=== PATIENT | male | born 1955 | race Caucasian/White ===

== ENCOUNTER 2021-06-21 09:17 | Observation (INO) ==
--- NOTE | 2021-06-19 10:00 | Anesthesiology Consultation ---
Date of Service June 19, 2021 Assessment & Plan (1) Encounter for pre-operative examination: - Pt reports echocardiogram within past year. Will attempt to obtain record. - COVID screening: Per assessment director on 06/19/2021: Travel screen negative, no known COVID-19 positive contacts or current COVID-19 related symptoms in past 2 weeks. Patient vaccinated. Surgeon arranging preop COVID testing, scheduled 06/19/21 [place]. Awaiting results. Chart Review Chart Review: Acceptable Risk for Surgery (pending echocardiogram report) and Patient NOT seen in Pre Admission Testing History Surgery Operation Date: 06/21/21 07:00 Proposed Procedures p Left Laparoscopic Recurrent Inguinal Hernia Repair, possible Open - David Scott MD, FACS Height/Weight Height: 5 ft 10 in Weight: 88.451 kg Allergies Allergy/AdvReac Type Severity Reaction Status Date / Time Penicillins Allergy Unknown UNSURE OF Verified 06/19/21 09:16 REACTION Medications Home Medications Medication Instructions Recorded Confirmed Last Taken aspirin 81 mg tablet,delayed 81 mg PO HS 02/09/21 06/19/21 04/25/21 release (Adult Aspirin Regimen) atorvastatin 10 mg tablet 10 mg PO HS 02/09/21 06/19/21 04/25/21 finasteride 5 mg tablet 5 mg PO HS 02/09/21 06/19/21 04/25/21 losartan 50 mg tablet 50 mg PO HS 02/09/21 06/19/21 04/25/21 tstutoxn-cos-wikhj acid 300 1 tab PO QAM 04/23/21 06/19/21 04/26/21 mcg-lycopene 600 mcg-lutein 300 mcg tablet (Spectravite Men 50 Plus) glucosamine sulf dipot 1 cap PO BID 06/19/21 06/19/21 Unknown chlr,msm,chond 550 mg-C 30 mg-caitlin 1 mg capsule (Glucosamine Chondroitin) omega-3 fatty acids 1,000 mg PO DAILY 06/19/21 06/19/21 Unknown Past Medical History Medical History BPH (benign prostatic hyperplasia) Hearing deficit Hyperlipemia Hypertension Osteoarthritis Past Family History Family History Father Hypertension Other Hearing loss No family history of adverse response to anesthesia No family history of bleeding disorder Past Surgical History Surgical History H/O hand surgery Right hand cyst H/O left inguinal hernia repair H/O right knee surgery H/O shoulder surgery RT H/O tooth extraction History of esophagogastroduodenoscopy (EGD) Hx of cataract surgery RT/LEFT Hx of colonoscopy with polypectomy Social History Smoking Status: Former smoker tobacco type: cigarettes Do You Dip or Chew Tobacco: No Smoking End Date: 2000 Hx Alcohol Use: Yes Alcohol type: beer and hard liquor alcohol intake frequency: a few times a week Hx Substance Use: Yes substance use type: marijuana Last Used Substance Other:: 4 DAYS AG (LAST USED) Lab Results Anesthesia Preop Results Results Anesthesia Widget: WBC 3.98 K/uL (4.8-10.8) L 05/23/21 Hgb 16.7 g/dL (14.0-18.0) 05/23/21 Hct 48.8 % (42-52) 05/23/21 Plt 141 K/uL (130-400) 05/23/21 Na 141 mmol/L (136-145) 05/23/21 K 4.3 mmol/L (3.5-5.1) 05/23/21 Cl 108 mmol/L (98-107) H 05/23/21 CO2 29 mmol/L (21-32) 05/23/21 BUN 16 mg/dl (7-18) 05/23/21 Creat 1.06 mg/dl (0.6-1.4) 05/23/21 Glucose Level 109 mg/dl (70-99) H 05/23/21 Testing Electrocardiogram Date: 05/23/21 Normal sinus rhythm, rate 61 bpm. Chest X-Ray Date: 05/23/21 FINDINGS: PA and lateral chest radiographs are obtained. No prior studies are available for comparison at the time of dictation. The cardiomediastinal silhouette is unremarkable noting atherosclerotic calcification of the thoracic aorta. The lungs appear hyperinflated and hyperlucent with flattening the diaphragm and increased retrosternal clear space suggesting obstructive physiology. No airspace consolidation or pleural effusion is identified. There is no pneumothorax. The bony thorax appears intact. IMPRESSION: 1. No active disease in the chest. 2. Findings suggest obstructive physiology.
[~2021-06-21 09:17] MED LIST: LR 15ML/HR IV SCH
[2021-06-21] MEDS ORDERED: MIDAZOLAM HCL 1 MG/ML 2ML VIAL ONE (09:28)
[2021-06-21] MEDS ORDERED: fentaNYL citrate 100 MCG/2 ML VIAL ONE (09:28)
[2021-06-21] MEDS ORDERED: ACETAMINOPHEN 1000 MG/100 ML IV IV ONE (09:42)
[2021-06-21] MEDS ORDERED: ATROPINE SULFATE 0.1 MG/ML 10ML SYR IV PRN (09:56)
[2021-06-21] MEDS ORDERED: ePHEDrine sulfate 50 MG/ML AMP IV PRN (09:56)
[2021-06-21] MEDS ORDERED: ONDANSETRON INJ 2 MG/ML 2 ML VIAL IV PRN ×3 (09:56→14:15)
[2021-06-21] MEDS ORDERED: fentaNYL citrate 100 MCG/2 ML VIAL IV PRN (09:56)
[2021-06-21] MEDS ORDERED: DEXAMETHASONE SOD INJ 4 MG/ML VIAL ONE (10:05)
[2021-06-21] MEDS ORDERED: LIDOCAINE 2% 2 ML VIAL/AMP(20MG/ML) INFIL ONE (10:05)
[2021-06-21] MEDS ORDERED: PROPOFOL IV EMULSION 10 MG/ML 20 ML VIAL IV ONE (10:05)
[2021-06-21] MEDS ORDERED: ROCURONIUM BROMIDE 10 MG/ML 5 ML VIAL IV ONE (10:05)
[2021-06-21] MEDS ORDERED: ONDANSETRON INJ 2 MG/ML 2 ML VIAL ONE (10:05)
--- NOTE | 2021-06-21 10:13 | History & Physical Bridge Note ---
Date of Service June 21, 2021 History & Physical Bridge Note I have examined the patient, reviewed the History & Physical and in the interval since the performance of the History & Physical I have noted the following changes of clinical significance: no changes noted pt marked all question answered
[2021-06-21] MEDS ORDERED: BUPIVACAINE 0.5 % 5 MG/1 ML MPF 30ML VIAL ONE (10:15)
[2021-06-21] MEDS ORDERED: NEOSTIGMINE METHYLSULFATE 1 MG/ML 10ML VIAL ONE (10:55)
[2021-06-21] MEDS ORDERED: GLYCOPYRROLATE 0.2 MG/ML VIAL ONE (10:55)
[2021-06-21] MEDS ORDERED: ceFAZolin 2000MG 2,000 MG/15 ML SYR IV ONE ×2 (11:02→11:13)
[2021-06-21] MEDS ORDERED: SURGICEL ABSORB HEMOSTAT 2IN X 14IN TOP ONE (11:56)
[2021-06-21] MEDS ORDERED: MoRPHine SULFATE 4 MG/ML 1 ML CARP\\VIAL IV PRN ×2 (12:09→14:15)
[2021-06-21] MEDS ORDERED: MoRPHine SULFATE 2 MG/ML CARP IV PRN ×2 (12:09→14:15)
[2021-06-21] MEDS ORDERED: oxyCODONE/ACETAMINOPHEN 5mg/325mg TAB PO PRN ×4 (12:09→14:15)
[2021-06-21] MEDS ORDERED: SODIUM CHLORIDE 0.9% 1000ML 1,000 ML IV SCH (12:15)
--- NOTE | 2021-06-21 12:29 | Post Operative Brief Note ---
PG Immediate Post Op with CF Date of Surgery June 21, 2021 Pre & Post Diagnosis Operation Date: 06/21/21 11:05 Pre-Op Diagnosis: Recurrent Left Inguinal Hernia Post-Op Diagnosis: Recurrent Left Inguinal Hernia I identified the patient and participated in the time-out.: Yes Procedure Operation Date: 06/21/21 11:05 Actual Procedures p Left Laparoscopic Recurrent Indirect Inguinal Hernia Repair with Marlex Mesh(Left) - David Scott MD, FACS Surgeon David Scott MD, FACS Mutuel Department Manager getachew segura Estimated Blood Loss 100 Findings Consistent with Post-Op Diagnosis indirect rec hernia Specimens Specimen Description: #1 urine culture Drains Orourke Catheter
--- NOTE | 2021-06-21 12:41 | Operative Report ---
Post Operative Report Pre & Post Diagnosis Operation Date: 06/21/21 11:05 Pre-Op Diagnosis: Recurrent Left Inguinal Hernia Post-Op Diagnosis: Recurrent Left Inguinal Hernia I identified the patient and participated in the time-out.: Yes Procedure Operation Date: 06/21/21 11:05 Actual Procedures p Left Laparoscopic Recurrent Indirect Inguinal Hernia Repair with Marlex Mesh(Left) - David Scott MD, FACS Patient was brought into the operating theater general endotracheal anesthesia Orourke catheter placed lower abdomen was prepped byline scrub solution and properly draped timeout was had systemic antibiotics on board patient had been identified made a small incision supraumbilically sufficient enough to accommodate a Veress needle followed by CO2 followed by 5 mm trocar point retrospect had no injuries identified this point patient was placed in the Trendelenburg position we will do identify the left inguinal area large defect was appreciated was an indirect hernia we can see the the defect itself was approximately 3 cm or so where a wheeze appreciated the cord structures and it was going down medially at this point we placed a 5 mm trocar at the level of the umbilical area on the left another 5 to the right we then incised the peritoneum above the defect and took it all the way circumferentially down towards the triangle of doom and medially all the way to the medial umbilical ligament we bluntly dissected out to get to the muscular fascial planes and we delivered a significant amount of preperitoneal fatty tissue that had gone down into the canal the cord structures were strictly adherent and we had difficult time freeing it up from the hernial sac. I did not identify any mesh the patient states that he had a mesh closure done in the hernia approximately 7 years ago once we are able to delineate the muscular fascial planes we were able to easily appreciate the inferior epigastric vessels we went all the way down to Humberto's ligament symphysis pubis was all exposed but inferior to the triangle of doom and we were able to have significant of preperitoneal fat into the hernial sac and this was a generalized ooze. We used multiple application of the clips to it then to free up this area and control hemostasis pay some Surgicel in the area similarly an Endo loop. By the time we were down it seems like the bleeding was controlled it was a generalized oozing in the suspect the patient was related to the aspirin that he was taken the defect itself we had mobilized the cord structures and I elected to place a Marlex mesh that we brought up on the field and cut it in 2 limbs it appeared to go better by placing an underneath the cord structures rather than on top of it which we did at 2 limbs were then brought around at closed the neck at that around the cord structures using clips. We did use metal tackers and observable tackers to suture and stabilize the mesh against the symphysis pubis up a viable on the conjoined tendon staying away from the inferior epigastric vessels circumferentially we tacked the mesh but we were away from the triangle of doom. We then again checked for hemostasis which was constant ooze into the preperitoneal area from the large contents of the hernial sac but 1 we have not appear satisfactory we then closed the peritoneum over the mesh using clips. Completely exteriorizing the mesh from the intra-abdominal contents. Individual trocar sites were checked hemostasis and the trochars removed under direct visualization no bleeding was appreciated except some oozing at the skin edge and also we closed the opening and umbilical area using interrupted 0 Vicryl suture x2. 4 Monocryl for skin edges dressing was applied the procedure was tolerated well by the patient estimate blood loss approximately 100 cc mostly a generalized ooze that was constant. Addendum Elana Bueno was present at the procedure and helped the retraction exposure and wound closure Spoke with his Kasia at [phone] and discussed the operative findings and that that we were going to keep the patient observation overnight because of the generalized oozing that he had Surgeon David Scott MD, FACS Nurse Practitioner Manager getachew segura Estimated Blood Loss 100 Findings Consistent with Post-Op Diagnosis Large indirect hernia Specimens none Description of Procedure merda I attest to the content of the Intraoperative Record and any orders documented therein. Any exceptions are noted below.
--- NOTE | 2021-06-21 13:20 | Anesthesiology Progress Note ---
Date of Service June 21, 2021 Anesthesia Post Procedure Vital Signs Vital Signs: Temp Pulse Pulse Resp BP Pulse Ox 06/21/21 13:10 74 16 102/59 L 95 06/21/21 13:00 79 18 114/68 99 06/21/21 12:50 65 14 118/66 100 06/21/21 12:43 97.2 F L 87 20 131/74 97 06/21/21 10:04 97.9 F 66 18 135/87 97 Pain Intensity Abdomen: Pain Intensity: 2 Transfer of Care Handoff Completed per policy Notes Mental Status: alert / awake / arousable and participated in evaluation Patient Amnestic to Procedure: Yes Nausea / Vomiting: adequately controlled Pain: adequately controlled Airway Patency, RR, SpO2: stable & adequate BP & HR: stable & adequate Hydration State: stable & adequate Anesthetic Complications: no major complications apparent and Pt Satisfied with anesthetic care
[2021-06-21] MEDS ORDERED: LACTATED RINGER'S 1,000 ML IV SCH (14:15)
[2021-06-21] MEDS ORDERED: ATORVASTATIN 10 MG TAB PO SCH (21:00)
[2021-06-21] MEDS ORDERED: FINASTERIDE 5 MG TAB PO SCH (21:00)
[2021-06-21] MEDS ORDERED: ACETAMINOPHEN 325 MG TAB PO PRN (22:19)
[2021-06-22 08:27] LABS: Basophils # (auto) 0.02 K/uL (0-0.2); Basophils % (auto) 0.2 %; Eosinophils # (auto) 0.01 K/uL (0-0.5); Eosinophils % (auto) 0.1 %; Hematocrit (blood only) 37.5 % (42-52); Immature Granulocytes # (auto) 0.02 K/uL (0.00-0.02); Immature Granulocytes % (auto) 0.2 %; Lymphocytes # (auto) 1.48 K/uL (1.2-3.4); Mean Corpuscular Hgb Conc 34.7 g/dL (32-36); Mean Corpuscular Volume 95.2 fL (80-100); Mean Platelet Volume 8.6 fL (7.4-10.4); Monocytes # (auto) 1.04 K/uL (0.11-0.59); Monocytes % (auto) 8.4 %; Neutrophils % (auto) 79.1 %; Platelet Count 177 K/uL (130-400); RDW Coefficient of Variation 12.2 % (11.5-14.5); RDW Standard Deviation 42.5 fL (36.4-46.3); Red Blood Count 3.94 M/uL (4.7-6.1); White Blood Count 12.37 K/uL (4.8-10.8)
[2021-06-22 08:45] LABS: BUN Creatinine Ratio 16.2 (10-20); Calcium 8.5 mg/dl (8.5-10.1); Creatinine Clr Calc Pharmacy 76.5 ml/min; Est GFR (African American) 84.7 ml/min; Est GFR (Non-African American) 73.1 ml/min; Potassium 4.1 mmol/L (3.5-5.1)
--- NOTE | 2021-06-22 08:58 | Surgery Progress Note ---
Date of Service June 22, 2021 Assessment & Plan (1) Left inguinal hernia: Plan: The intraoperative findings were discussed with the patient including the excessive bleeding that we encountered to repair this laparoscopic recurrent left inguinal hernia This morning we will await the hemoglobin stable and most likely will be since 6 vitals have been good and he is comfortable and the patient can be discharged instructions were given regarding wound care activities and diet and follow-up care All questions were answered Excessive bruising that we encountered in the preperitoneal area likely to do with a large hernia and also the patient is on chondroitin and aspirin which may have contributed to generalized oozing Admission and Anticipated Discharge Date Admission Date: June 21, 2021 Subjective The patient overall had a good night minimal discomfort postoperative been able to eat well last evening voiding fine Physical Exam Physical Exam: Alert coherent no distress The abdomen is completely benign Does have some scrotal swelling as expected and some bruising developing into the groin area Results & Data ([facility]) Vital Signs (Past 12 Hours) Vital Signs Temp Pulse Resp BP Pulse Ox 06/22/21 07:25 36.5 C 80 17 118/72 94 06/22/21 02:59 36.6 C 85 18 145/72 H 95 06/21/21 22:07 36.7 C 99 H 17 145/90 H 94 PG Care Time/CCT Total # of Minutes Spent Total Time Spent with Patient: Total time spent is greater than 50% in coordination of care (as documented) at patient's floor/unit and/or counseling patient: Coding Level of Care Code None Diagnoses Left inguinal hernia K40.90
--- NOTE | 2021-06-22 09:57 | Discharge Summary ---
Date of Service June 22, 2021 Principal Diagnosis Recurrent left inguinal hernia Discharge Exam Constitutional WD/WN, vitals as above Gastrointestinal (Abdomen) Inspection/Auscultation: + abdominal surgical incision (clean, dry) Percussion/Palpation: abdomen soft Discharge Data Allergies Allergy/AdvReac Type Severity Reaction Status Date / Time Penicillins Allergy Unknown UNSURE OF Verified 06/21/21 09:57 REACTION Procedures Performed Operation Date: 06/21/21 11:05 Actual Procedures p Left Laparoscopic Recurrent Indirect Inguinal Hernia Repair with Marlex Mesh(Left) - David Scott MD, FACS Hospital Course (1) Left inguinal hernia: 66 y/o male with recurrent left inguinal hernia was taken to the operating room for laparoscopic repair. He was transferred to the surgical floor for overnight observation. In the morning he was able to tolerate diet and oral analgesics. He had a slight drop in Hgb from 16 to 13 but was otherwise doing well and was stable for discharge home. Total Time Total Time Spent Total Time Spent (In Minutes): 15 Discharge Plan Discharge Items Patient Disposition: Home - Self-Care Reason For Visit: Recurrent Left Inguinal Hernia Discharge Diagnosis: laparoscopic left inguinal hernia repair Activity: Per Instructions section Lifting: No more than 10 pounds Bathing Comment: may shower starting 06/22/21; no soaking in tubs/pools Exercise/Sports: Wait until after follow-up appointment Non-emergency contact: Surgeon Call non-emergency contact if: you have any medication questions, your symptoms worsen, your pain is not controlled, your pain is concerning for you, you have a fever, your temperature is above 101.5, your wound has increased redness, your wound has increased drainage and your wound pain has increased Follow-up/Referrals: David Scott MD, FACS [Surgeon] - (Please call to schedule follow up in clinic within 1 week) PCP,NO [Physician] - Diet: Regular Addtl Attending Provider Instructions: You may ice your groin on and off alternating every 20 minutes as needed to help with pain and swelling You have small white bandages over your incisions called steri-strips. You may shower with these on. They will tend to fall off on their own within 7-10 days. Pending Studies at Discharge: No Stand-Alone Forms: [facility] [employer] Medications and DC Order Prescriptions: New oxycodone-acetaminophen [Percocet] 5-325 mg tablet 1 - 2 tab PO Q4H PRN (Reason: pain, initial therapy, max 6 daily) Qty: 15 RF: 0 Continued Spectravite Men 50 Plus 300-600-300 mcg tablet 1 tab PO QAM RF: 0 losartan 50 mg tablet 50 mg PO HS RF: 0 finasteride [Proscar] 5 mg tablet 5 mg PO HS RF: 0 atorvastatin 10 mg tablet 10 mg PO HS RF: 0 aspirin [Adult Aspirin Regimen] 81 mg tablet,delayed release (DR/EC) 81 mg PO HS RF: 0 Fish Oil Capsule 1,000 mg PO DAILY RF: 0 Glucosamine Chondroitin 550-30-1 mg Capsule 1 cap PO BID RF: 0 Discharge Orders: Discharge Order (Routine); Ordered 06/22/21 Ordered By: Asad Rankin Admission Data Admit Date/Time: 06/21/21 12:43 Attending Provider: David Scott Admit Provider: David Scott Primary Care Provider: Saurabh Martinez Coding Level of Care Code D/C DAY MANAGEMENT <30 MINS Diagnoses Left inguinal hernia K40.90
== END 2021-06-22 12:30 | disposition home or self-care (01) ==
LOC: ASU 09:17 → PACUINP 09:17 → 3N 14:20

== ENCOUNTER 2021-08-15 10:11 | Inpatient (IN) ==
[2021-08-15] MEDS ORDERED: ACETAMINOPHEN 325 MG TAB PO PRN (10:23)
[2021-08-15] MEDS ORDERED: ONDANSETRON INJ 2 MG/ML 2 ML VIAL IV PRN (10:23)
[2021-08-15 12:13] LABS: Basophils # (auto) 0.03 K/uL (0-0.2); Basophils % (auto) 0.2 %; Eosinophils # (auto) 0.05 K/uL (0-0.5); Eosinophils % (auto) 0.4 %; Hemoglobin 13.7 g/dL (14.0-18.0); Immature Granulocytes # (auto) 0.03 K/uL (0.00-0.02); Immature Granulocytes % (auto) 0.2 %; Lymphocytes # (auto) 0.78 K/uL (1.2-3.4); Lymphocytes % (auto) 5.7 %; Mean Corpuscular Hemoglobin 31.4 pg (25-34); Mean Platelet Volume 8.2 fL (7.4-10.4); Monocytes # (auto) 0.86 K/uL (0.11-0.59); Monocytes % (auto) 6.3 %; Neutrophils # (auto) 11.95 K/uL (1.4-6.5); Neutrophils % (auto) 87.2 %; Platelet Count 243 K/uL (130-400); RDW Coefficient of Variation 12.9 % (11.5-14.5); RDW Standard Deviation 44.6 fL (36.4-46.3); Red Blood Count 4.36 M/uL (4.7-6.1)
--- NOTE | 2021-08-15 12:13 | History & Physical Report ---
Date of Service August 15, 2021 Assessment & Plan (1) Abscess of left groin: Plan: This is a 66yM with a PMH of HTN, HLD, who of significance underwent a laparoscopic left inguinal hernia repair with mesh on 06/21/21 that has been complicated by abscess formation. This was drained by radiology on 08/07 and cultures returned + for mycobacterium. Given the nature of the bacteria we have decided to direct admit the patient for IV abx. Labs today show WBC 13.7. Vital signs are stable and patient afebrile. On exam patient has an area of induration of the left groin with some surrounding erythema and bloody/purulent drainage at site of recent attempt of I&D. We have consulted the hospitalists for assistance with the patient. Will likely consult infectious disease for further abx recommendations/guidance. We will still proceed with surgical intervention tomorrow as previously planned. We will continue with bowel prep with flagyl + neomycin and give patient a dose of mg citrate. Clear liquid diet ordered for today and will make NPO at midnight. Plan for pt to undergo I&D of left groin abscess with possible mesh removal tomorrow.. Admission and Anticipated Discharge Date Admission Date: August 15, 2021 History of Present Illness Primary Care Provider: Saurabh Martinez MD This is a 66yM with a PMH of HTN, HLD, who of significance underwent a laparoscopic left inguinal hernia repair with mesh on 06/21/21. Patient did spend the night as intraop some bleeding was encountered, but was discharged without event. Patient was doing fairly well at his 2week post op check and began to increase his activity level. At his third post op evaluation patient with complaints of fullness after eating and was found to have a firm area around the site of his surgical incision. He also complained of it taking longer for him to do his daily exercising. A CT was ordered that showed fluid and gas within the mesh concerning for abscess formation. Thereafter he was scheduled with radiology for drainage which was performed on 08/07 where about 50cc of pus was aspirated and they left a pigtail catheter and he was started on a course of Bactrim. He saw Dr. Scott yesterday and it was decided to proceed with surgical intervention for I&D of the wound with possible mesh removal giving ongoing purulent drainage. Today, the lab called as microbiology from the [place] guided drainage is revealing cultures + for mycobacterium fortuitum. Due to the nature of this bacteria it was decided it would be best for patient to be directly admitted to the hospital for the start of IV abx. Given all of this, patient denies any nausea/vomiting, abdominal pain, no pain/tenderness at L groin wound, no fevers/chills, and says he is urinating okay. Was able to continue his ADL's, but when he performed exercises was having a little bit more trouble getting through them. He also feels full after eating small meals. Allergies Allergy/AdvReac Type Severity Reaction Status Date / Time Penicillins Allergy Unknown UNSURE OF Verified 08/14/21 12:13 REACTION Home Medications Medication Instructions Recorded Confirmed Type aspirin 81 mg tablet,delayed 81 mg PO HS 02/09/21 08/15/21 History release (Adult Aspirin Regimen) atorvastatin 10 mg tablet 10 mg PO HS 02/09/21 08/15/21 History finasteride 5 mg tablet (Proscar) 5 mg PO HS 02/09/21 08/15/21 History losartan 50 mg tablet (Cozaar) 50 mg PO HS 02/09/21 08/15/21 History wgphncii-bsf-cocap acid 300 1 tab PO QAM 04/23/21 08/15/21 History mcg-lycopene 600 mcg-lutein 300 mcg tablet (Spectravite Men 50 Plus) Past Med/Surg History Medical History BPH (benign prostatic hyperplasia) Hearing deficit Hyperlipemia Hypertension Osteoarthritis Surgical History H/O hand surgery Right hand cyst H/O right knee surgery H/O shoulder surgery RT H/O tooth extraction History of esophagogastroduodenoscopy (EGD) Hx of cataract surgery RT/LEFT Hx of colonoscopy with polypectomy S/P left inguinal hernia repair (06/21/21) Left Laparoscopic Recurrent Indirect Inguinal Hernia Repair with Marlex Mesh(Left) - David Scott MD, FACS 06/21/21 Family History Father Hypertension Other Hearing loss No family history of adverse response to anesthesia No family history of bleeding disorder Social History Smoking Status: Former smoker Tobacco Type: Cigarettes packs per day: 0.5; Second Hand Exposure: No; Do You Dip or Chew Tobacco: No; Tobacco Cessation Education Requested by Patient: No Hx Alcohol Use: No Hx Substance Use: No Preferred Language: Austrian Communication Ability: Effective Visual Impairment: No Limitations Hearing Ability: Hard of Hearing Supply Specialist Required: No Beliefs That Will Affect Care: None marital status: Current Living Situation: Spouse Other Information That Helps Us Care for You: No Feels Safe at Home: Yes Safety Concerns: Feels Safe At This Time Assistive Devices: Glasses and Hearing Aid - Bilateral Review of Systems Constitutional: no fever and no chills Respiratory: no dyspnea Cardiovascular: no chest pain Gastrointestinal: no abdominal pain, no nausea and no vomiting + lump at L groin w/ drainage. non painful fullness after eating Physical Exam Physical Exam: awake/alert Constitutional: well developed and well nourished; no acute distress Gastrointestinal (Abdomen): Inspection/Auscultation: abdomen not distended Percussion/Palpation: abdomen soft; abdomen nontender L groin induration with erythema, packing in place with bloody/purulent fluid noted on bandage. non tender Code Status & VTE Plan VTE Prophylaxis Plan VTE Prophylaxis will be ordered: Yes PG Care Time/CCT Total # of Minutes Spent Total Time Spent with Patient: Total time spent is greater than 50% in coordination of care (as documented) at patient's floor/unit and/or counseling patient: Coding Level of Care Code 78932 Initial Inpt Care Lvl 1 Diagnoses Abscess of left groin L02.214
[2021-08-15] MEDS ORDERED: MAGNESIUM CITRATE 296 ML/BTL PO SCH (12:15)
[2021-08-15 12:22] LABS: Mean Corpuscular Hgb Conc 33.4 g/dL (32-36)
[2021-08-15 12:35] LABS: Anion Gap 10 (3-11); BUN Creatinine Ratio 15.2 (10-20); Blood Urea Nitrogen 17 mg/dl (6-23); Calcium 9.3 mg/dl (8.5-10.1); Carbon Dioxide 23 mmol/L (21-32); Chloride 99 mmol/L (98-107); Est GFR (African American) 78.4 ml/min; Est GFR (Non-African American) 67.6 ml/min; Glucose 114 mg/dl (70-99(Fasting)); Potassium 3.9 mmol/L (3.5-5.1); Sodium 132 mmol/L (136-145)
--- NOTE | 2021-08-15 12:37 | Hospitalist Consultation ---
Date of Consultation August 15, 2021 Assessment & Plan (1) Abscess of left groin: Imaging and clinical indications of infection. - Plan for surgery tomorrow - Recommend removal of mesh given involvement of mesh on CT a/p on 08/03. Mycobacterium can form biofilm, so I suspect infection will not resolve without removal. - Discussed with pharmacy - Recommend cefoxitin + Cipro for now. * Cefoxitin for treatment of Gram(-) and anaerobes, plus known cultures * Cipro because literature recommends double coverage of Mycobacterium - Will order ID consult - Called Micro lab to request sensitivities for Mycobacterium fortuitum. (2) Hypertension: - Hold losartan until 08/17 - Can use meds PRN for severe hypertension (3) High cholesterol: - Continue statin (4) BPH (benign prostatic hyperplasia): - Continue finasteride (5) DVT prophylaxis: SCDs for now - Encourage heparin after surgery, but defer to surgery History of Present Illness Reason for Consultation: Surgical site skin/soft tissue infection Attending Physician: David Scott MD, [facility] History of Present Illness 66yo M w/ hx of HTN, BPH who presents with surgical site infection. He initially had a left inguinal hernia repair on 06/21/[address] Scott. He reports that he had at least 4 weeks of good healing, but then started to have some increased pain and fullness in the area. He saw Dr. Scott on 08/03/[address] a/p which showed fluid and gas within the mesh along with several other fluid collections extending into the left inguinal canal. On 08/07/2021, he had a pigtail catheter placed in one abscess pocket which was in for about 1 week. He was started on Augmentin at that time. The culture from the drainage grew Enterobacter cloacae, and his abx was switched to Bactrim by Dr. Scott. However, he continues to have fullness, some pain, and subjective fevers. On 08/15/2021, the culture also grew Mycobacterium fortuitum, and Dr. Scott asked that he come to the hospital for IV antibiotics and further surgery tomorrow. Allergies Allergy/AdvReac Type Severity Reaction Status Date / Time Penicillins Allergy Unknown UNSURE OF Verified 08/14/21 12:13 REACTION Home Medications Medication Instructions Recorded Confirmed Type aspirin 81 mg tablet,delayed 81 mg PO HS 02/09/21 08/15/21 History release (Adult Aspirin Regimen) atorvastatin 10 mg tablet 10 mg PO HS 02/09/21 08/15/21 History finasteride 5 mg tablet (Proscar) 5 mg PO HS 02/09/21 08/15/21 History losartan 50 mg tablet (Cozaar) 50 mg PO HS 02/09/21 08/15/21 History kgcdbwhq-yzg-xuqev acid 300 1 tab PO QAM 04/23/21 08/15/21 History mcg-lycopene 600 mcg-lutein 300 mcg tablet (Spectravite Men 50 Plus) Patient History Medical History BPH (benign prostatic hyperplasia) Hearing deficit Hyperlipemia Hypertension Osteoarthritis Surgical History H/O hand surgery Right hand cyst H/O right knee surgery H/O shoulder surgery RT H/O tooth extraction History of esophagogastroduodenoscopy (EGD) Hx of cataract surgery RT/LEFT Hx of colonoscopy with polypectomy S/P left inguinal hernia repair (06/21/21) Left Laparoscopic Recurrent Indirect Inguinal Hernia Repair with Marlex Mesh(Left) - David Scott MD, FACS 06/21/21 Family History Father Hypertension Other Hearing loss No family history of adverse response to anesthesia No family history of bleeding disorder Social History Smoking Status: Former smoker Tobacco Type: Cigarettes packs per day: 0.5; Second Hand Exposure: No; Do You Dip or Chew Tobacco: No; Tobacco Cessation Education Requested by Patient: No Hx Alcohol Use: No Hx Substance Use: No Preferred Language: Finnish Communication Ability: Effective Visual Impairment: No Limitations Hearing Ability: Hard of Hearing Hand Baseball Sewer Required: No Beliefs That Will Affect Care: None marital status: Current Living Situation: Spouse Other Information That Helps Us Care for You: No Feels Safe at Home: Yes Safety Concerns: Feels Safe At This Time Assistive Devices: Glasses and Hearing Aid - Bilateral Review of Systems Review of Systems: All systems reviewed & are unremarkable except as noted in HPI & below Physical Exam Constitutional: WD/WN, vitals as above Eyes: EOM intact bilaterally; no conjunctival abnormality ENMT: external ear and nose normal, oropharynx normal Neck: trachea midline, no thyromegaly normal visual inspection Respiratory: normal respiratory effort, lungs clear to auscultation no respiratory distress Cardiovascular: RRR, no murmur, no edema Gastrointestinal (Abdomen): Inspection/Auscultation: abdomen normal to inspection; abdomen not distended Musculoskeletal: no cyanosis or clubbing, extremities motor strength 5/5 Skin: no rashes, warm and dry Neurologic: moves all extremities and awake Psychiatric: Orientation: alert, oriented to person and cooperative Genitourinary: + hernia (Left side incision, drain present, some fullness and tenderness) PG Care Time/CCT Total # of Minutes Spent Total Time Spent with Patient: Total time spent is greater than 50% in coordination of care (as documented) at patient's floor/unit and/or counseling patient: Coding Level of Care Code 26455 Inpt Consult Level 5 Diagnoses Abscess of left groin L02.214 High cholesterol E78.00 BPH (benign prostatic hyperplasia) N40.0 Hypertension I10 DVT prophylaxis Z29.9
[2021-08-15] MEDS: cefOXitin 2,000 MG in DEXTROSE 5% 50 ML IV SCH ×2 (13:39→20:53)
[2021-08-15] MEDS ORDERED: metroNIDAZOLE 500 MG TAB PO SCH (14:00)
[2021-08-15] MEDS ORDERED: MAGNESIUM CITRATE 296 ML/BTL PO ONE (14:00)
[2021-08-15] MEDS ORDERED: NEOMYCIN SULFATE 500 MG TAB PO SCH (14:00)
[2021-08-15] MEDS: CIPROFLOXACIN / D5W 400 MG/200 ML BAG IV SCH (14:20)
[2021-08-15] MEDS: FINASTERIDE 5 MG TAB PO SCH (20:53)
[2021-08-15] MEDS: ATORVASTATIN 10 MG TAB PO SCH (20:53)
[2021-08-16] MEDS: cefOXitin 2,000 MG in DEXTROSE 5% 50 ML IV SCH ×4 (01:21→20:05)
[2021-08-16] MEDS: CIPROFLOXACIN / D5W 400 MG/200 ML BAG IV SCH ×2 (02:02→16:50)
--- NOTE | 2021-08-16 06:41 | Surgery Progress Note ---
Date of Service August 16, 2021 Assessment & Plan (1) Abscess of left groin: Plan: PAD#1 We will proceed with drainage of left groin abscess mesh removal later today All question answered This is a 66yM with a PMH of HTN, HLD, who of significance underwent a laparoscopic left inguinal hernia repair with mesh on 06/21/21 that has been complicated by abscess formation. This was drained by radiology on 08/07 and cultures returned + for mycobacterium. Given the nature of the bacteria we have decided to direct admit the patient for IV abx. Labs today show WBC 13.7. Vital signs are stable and patient afebrile. On exam patient has an area of induration of the left groin with some surrounding erythema and bloody/purulent drainage at site of recent attempt of I&D. We have consulted the hospitalists for assistance with the patient. Will likely consult infectious disease for further abx recommendations/guidance. We will still proceed with surgical intervention tomorrow as previously planned. We will continue with bowel prep with flagyl + neomycin and give patient a dose of mg citrate. Clear liquid diet ordered for today and will make NPO at midnight. Plan for pt to undergo I&D of left groin abscess with possible mesh removal tomorrow.. Admission and Anticipated Discharge Date Admission Date: August 15, 2021 Subjective Patient feels 100% better since admission States left groin has less painful and is able to move with more He had a good meal last night this time he is able to eat without any issues namely early satiety that he had been complaining of Physical Exam Physical Exam: Patient is alert coherent resting comfortably overall looks much better than yesterday when admitted Gastrointestinal (Abdomen): The dressing is intact in the left lower quadrant minimal staining of the dressing I did not remove the dressing this morning since we will plan to proceed with more formal incision and drainage and mesh removal Results & Data ([facility]) Vital Signs (Past 12 Hours) Vital Signs Temp Pulse Resp BP Pulse Ox 08/15/21 22:27 36.6 C 77 18 105/66 96 PG Care Time/CCT Total # of Minutes Spent Total Time Spent with Patient: Total time spent is greater than 50% in coordination of care (as documented) at patient's floor/unit and/or counseling patient: Coding Level of Care Code 33981 Subseq Hosp Care Lvl 2 Diagnoses Abscess of left groin L02.214
[2021-08-16 06:53] LABS: Basophils # (auto) 0.02 K/uL (0-0.2); Basophils % (auto) 0.2 %; Eosinophils # (auto) 0.11 K/uL (0-0.5); Eosinophils % (auto) 1.1 %; Hematocrit (blood only) 39.2 % (42-52); Hemoglobin 12.9 g/dL (14.0-18.0); Immature Granulocytes # (auto) 0.02 K/uL (0.00-0.02); Immature Granulocytes % (auto) 0.2 %; Lymphocytes # (auto) 0.85 K/uL (1.2-3.4); Lymphocytes % (auto) 8.4 %; Mean Corpuscular Hemoglobin 30.7 pg (25-34); Mean Corpuscular Hgb Conc 32.9 g/dL (32-36); Mean Corpuscular Volume 93.3 fL (80-100); Mean Platelet Volume 8.4 fL (7.4-10.4); Monocytes # (auto) 0.88 K/uL (0.11-0.59); Monocytes % (auto) 8.7 %; Neutrophils % (auto) 81.4 %; Platelet Count 243 K/uL (130-400); RDW Coefficient of Variation 12.9 % (11.5-14.5); RDW Standard Deviation 43.9 fL (36.4-46.3); White Blood Count 10.08 K/uL (4.8-10.8)
[2021-08-16 07:11] LABS: BUN Creatinine Ratio 12.1 (10-20); Calcium 8.2 mg/dl (8.5-10.1); Creatinine Clr Calc Pharmacy 74.8 ml/min; Est GFR (Non-African American) 78.5 ml/min; Potassium 4.2 mmol/L (3.5-5.1)
--- NOTE | 2021-08-16 11:56 | Hospitalist Progress Note ---
Date of Service August 16, 2021 Assessment & Plan (1) Abscess of left groin: Plan: Imaging and clinical indications of infection. - Plan for surgery today - Recommend removal of mesh given involvement of mesh on CT a/p on 08/03. Mycobacterium can form biofilm, so I suspect infection will not resolve without removal. - Per discussion with pharmacy - Recommend cefoxitin + Cipro for now. * Cefoxitin for treatment of Gram(-) and anaerobes, plus known cultures * Cipro because literature recommends double coverage of Mycobacterium - ID consult pending, appreciate recommendations - Sensitivities requested from micro lab for Mycobacterium fortuitum. (2) Hypertension: Plan: - Hold losartan until 08/17 - Can use meds PRN for severe hypertension - None needed at present (3) High cholesterol: Plan: - Continue statin (4) BPH (benign prostatic hyperplasia): Plan: - Continue finasteride (5) DVT prophylaxis: Plan: SCDs for now - Encourage heparin after surgery, but defer to surgery Plan: No further recommendations at this time, will continue to follow along. Admission and Anticipated Discharge Date Admission Date: August 15, 2021 Subjective Patient seen on daily rounds this morning. He is resting comfortably in bed and reports feeling substantially better since admission. He attributes feeling bet ter since the initiation of IV antibiotics. He denies fever, chills, uncontrolled pain. He is for the OR today w/ Dr. Scott for I&D of L groin abscess. Review of Systems Review of Systems: CONSTITUTIONAL: Denies weight loss/gain, fever and chills, fatigue, malaise, generalized weakness. HEENT: Denies changes in vision and hearing. RESPIRATORY: Denies SOB, cough, wheezing. CV: Denies palpitations, CP, lower extremity edema, orthopnea, PND. GI: Denies abdominal pain, nausea, vomiting and diarrhea. : Denies dysuria and urinary frequency, urgency, hesitancy. MUSCULOSKELETAL: Denies myalgia and joint pain. SKIN: abscess/wound L groin. NEUROLOGICAL: Denies headache, syncope, focal weakness, numbness, tingling. PSYCHIATRIC: Denies recent changes in mood. Denies anxiety and depression. Physical Exam Physical Exam: GENERAL: 66 yo well-developed, well-nourished WM. NAD. LUNGS: Clear to auscultation bilaterally. No accessory muscle use. No W/R/R. CARDIOVASCULAR: Regular rate and rhythm. No M/G/R. No JVD. ABDOMEN: Soft, non-tender and non-distended. No palpable masses. BS normal x 4 quad. EXTREMITIES: No edema. Non-tender. Peripheral pulses +2/4. NEUROLOGIC: A&O x3 PSYCHIATRIC: Cooperative. Appropriate mood and affect. SKIN: L groin w/ area of fluctuance with center opening, tail of packing obse rved and purulent material present. Results & Data Results & Data ([facility]) Vital Signs (Past 12 Hours) Vital Signs Temp Pulse Resp BP Pulse Ox 08/16/21 07:56 36.7 C 83 16 108/71 94 Laboratory Results 08/16/21 06:23 08/16/21 06:23 PG Care Time/CCT Total # of Minutes Spent Total Time Spent with Patient: Total time spent is greater than 50% in coordination of care (as documented) at patient's floor/unit and/or counseling patient: Coding Level of Care Code 00208 Subseq Hosp Care Lvl 2 Diagnoses Abscess of left groin L02.214 Hypertension I10 High cholesterol E78.00 BPH (benign prostatic hyperplasia) N40.0 DVT prophylaxis Z29.9
--- NOTE | 2021-08-16 14:19 | Post Operative Brief Note ---
PG Immediate Post Op with CF Date of Surgery August 16, 2021 Pre & Post Diagnosis infected mesh s/o left ing hernia repair Operation Date: 08/16/21 12:20 <No data on this case meets the specified criteria> I identified the patient and participated in the time-out.: Yes Procedure Operation Date: 08/16/21 12:20 <No data on this case meets the specified criteria> drainage of abscess cavity left lower quadrant and explant marlex mesh Surgeon David Scott MD, FACS General Magistrate Brooke segura Estimated Blood Loss 30 Findings Consistent with Post-Op Diagnosis infected mesh and abscess cavity Specimens Specimen Description: Culture 1. Abscess cavity left groin (sent to lab @ 1403) Culture 2. Urine for routine culture and sensitivity (sent to lab @ 1403)
--- NOTE | 2021-08-16 14:35 | Operative Report ---
Post Operative Report Pre & Post Diagnosis Operation Date: 08/16/21 12:20 <No data on this case meets the specified criteria> Infected Marlex mesh left groin area status post laparoscopic repair recurrent left inguinal hernia I identified the patient and participated in the time-out.: Yes Procedure Operation Date: 08/16/21 12:20 <No data on this case meets the specified criteria> Incision and drainage abscess cavity and removal infected Marlex mesh Surgeon David Scott MD, FACS Mri Technician Brooke segura Estimated Blood Loss 30 Findings Consistent with Post-Op Diagnosis Abscess cavity significant inflammatory tissue preperitoneal space in left lower quadrant with infected mesh Specimens Culture and sensitivity of the abscess cavity Infected mesh Drains 1/4 inch Carmen drain starting below the inguinal ligament and going to the upper scrotal area and a chronically inflamed subcutaneous tissue suture to the skin edge with silk suture 2 inch vaginal packing in the preperitoneal space left lower quadrant sutured to the skin with silk suture Quarter-inch Presto drain and subcutaneous tissue on top of the vaginal packing sutured with silk suture Indications Abscess and infected mesh status post left inguinal hernia repair Description of Procedure The patient was brought into the operating theater general endotracheal anesthesia left lower quadrant was prepped Betadine solution after a Orourke catheter had been inserted the patient identified a timeout was had the dressing in the left lower quadrant was removed had a punctate area with moderate amount of purulent drainage just medial to the anterior superior iliac crest this is t he area that percutaneously radiology and drained an abscess Inferior to the inguinal ligament and the subcutaneous tissue proximal to the scrotum there was an incision quarter-inch that we used to drain the purulence segment in the office approximately 4 days ago and had some purulent drainage Admitted transverse incision from the area that was percutaneously drained medially through thick subcutaneous tissue very inflamed continued on this plane to the anterior rectus which we divided to expose the retroperitoneal space which we did moderate amount and chronic inflammation and some acute abscess cavity was encountered cultures were taken moderate amount of oozing was appreciated our dissection we then were able to find the mesh that was easily free of any chronic inflammation indicating the infection and we were able to explant it without any difficulty making sure that we took out any metal tacks the retroperitoneal area was then suctioned out copiously we never entered the peritoneal cavity we elected then to drain this I first placing a 2 inch vaginal packing after we used some Surgicel on the most medial aspect and the cavity the vaginal packing was attached to skin edges 2-0 silk suture on top of the vaginal packing we placed 1/4 inch Carmen drain along the incision simply attaching it to the skin edges the incision was closed loosely over the drain Inferior there is inguinal ligament where we had an incision quarter inch in size I probed the area and went into an abscess cavity no real significant drainage was appreciated but I elected at this point to place another counterincision just inferior to the external ring and placed quarter inch Presto drain into the cavity and both ends coming out of the 2 incisions sutured with silk suture a dressing was applied to both areas the Orourke catheter was removed the procedure was tolerated well estimate blood loss 30 cc Addendum Elana Bueno physician assistant manager retail was present throughout the case and helped the retraction exposure and wound closure is waiting in recovery room and I will go talk to her I attest to the content of the Intraoperative Record and any orders documented therein. Any exceptions are noted below.
[2021-08-16] MEDS ORDERED: MoRPHine SULFATE 2 MG/ML CARP IV PRN (15:49)
[2021-08-16] MEDS ORDERED: oxyCODONE/ACETAMINOPHEN 5mg/325mg TAB PO PRN ×2 (15:49)
[2021-08-16] MEDS ORDERED: MoRPHine SULFATE 4 MG/ML 1 ML CARP\\VIAL IV PRN (15:49)
--- NOTE | 2021-08-16 16:19 | Anesthesiology Progress Note ---
Date of Service August 16, 2021 Anesthesia Post Procedure Vital Signs Vital Signs: Temp Pulse Resp BP BP Pulse Ox 08/16/21 12:37 37.3 C 90 20 118/76 98 08/16/21 07:56 36.7 C 83 16 108/71 94 08/15/21 22:27 36.6 C 77 18 105/66 96 Transfer of Care Handoff Completed per policy Notes Mental Status: alert / awake / arousable Patient Amnestic to Procedure: Yes Nausea / Vomiting: adequately controlled Pain: adequately controlled Airway Patency, RR, SpO2: stable & adequate BP & HR: stable & adequate Hydration State: stable & adequate Anesthetic Complications: no major complications apparent
[2021-08-16] MEDS: LACTATED RINGER'S 1,000 ML IV SCH (18:01)
[2021-08-16] MEDS: ATORVASTATIN 10 MG TAB PO SCH (20:00)
[2021-08-16] MEDS: FINASTERIDE 5 MG TAB PO SCH (20:00)
[2021-08-16] MEDS ORDERED: Nursing to Pharmacy Communication SCH (21:00)
[2021-08-17] MEDS: cefOXitin 2,000 MG in DEXTROSE 5% 50 ML IV SCH ×2 (01:45→08:18)
[2021-08-17] MEDS: CIPROFLOXACIN / D5W 400 MG/200 ML BAG IV SCH ×2 (05:31→17:20)
[2021-08-17 06:12] LABS: Basophils # (auto) 0.02 K/uL (0-0.2); Basophils % (auto) 0.2 %; Eosinophils % (auto) 1.2 %; Hemoglobin 12.2 g/dL (14.0-18.0); Immature Granulocytes # (auto) 0.01 K/uL (0.00-0.02); Immature Granulocytes % (auto) 0.1 %; Lymphocytes # (auto) 0.98 K/uL (1.2-3.4); Mean Corpuscular Hemoglobin 31.8 pg (25-34); Mean Corpuscular Hgb Conc 33.9 g/dL (32-36); Mean Corpuscular Volume 93.8 fL (80-100); Monocytes # (auto) 0.71 K/uL (0.11-0.59); Monocytes % (auto) 8.7 %; Neutrophils # (auto) 6.36 K/uL (1.4-6.5); Neutrophils % (auto) 77.8 %; Platelet Count 237 K/uL (130-400); RDW Coefficient of Variation 12.9 % (11.5-14.5); RDW Standard Deviation 44.3 fL (36.4-46.3); Red Blood Count 3.84 M/uL (4.7-6.1); White Blood Count 8.18 K/uL (4.8-10.8)
[2021-08-17] MEDS: LACTATED RINGER'S 1,000 ML IV SCH (06:12)
[2021-08-17 06:40] LABS: BUN Creatinine Ratio 13.3 (10-20); Calcium 8.7 mg/dl (8.5-10.1); Creatinine Clr Calc Pharmacy 75.5 ml/min; Est GFR (African American) 92.1 ml/min; Est GFR (Non-African American) 79.5 ml/min
--- NOTE | 2021-08-17 07:22 | Surgery Progress Note ---
Date of Service August 17, 2021 Assessment & Plan (1) Abscess of left groin: Plan: POD#! The operative findings was discussed with the patient and I had discussed that in detail with his after surgery yesterday We will change the dressing later today advance the packing and the ultimate goal is to apply a wound VAC in the day or so We are waiting for final sensitivities for the mycobacteria and decide with the help of the medical service type of antibiotic and duration The lab this morning noted white counts normal hemoglobin minimal change from preop All question answered PAD#1 We will proceed with drainage of left groin abscess mesh removal later today All question answered This is a 66yM with a PMH of HTN, HLD, who of significance underwent a laparoscopic left inguinal hernia repair with mesh on 06/21/21 that has been complicated by abscess formation. This was drained by radiology on 08/07 and cultures returned + for mycobacterium. Given the nature of the bacteria we have decided to direct admit the patient for IV abx. Labs today show WBC 13.7. Vital signs are stable and patient afebrile. On exam patient has an area of induration of the left groin with some surrounding erythema and bloody/purulent drainage at site of recent attempt of I&D. We have consulted the hospitalists for assistance with the patient. Will likely consult infectious disease for further abx recommendations/guidance. We will still proceed with surgical intervention tomorrow as previously planned. We will continue with bowel prep with flagyl + neomycin and give patient a dose of mg citrate. Clear liquid diet ordered for today and will make NPO at midnight. Plan for pt to undergo I&D of left groin abscess with possible mesh removal tomorrow.. Admission and Anticipated Discharge Date Admission Date: August 15, 2021 Subjective Has some discomfort at the operative site when he was up and around yesterday evening He was able to tolerate a diet without any issues The dressing was reinforced Physical Exam Physical Exam: Alert coherent comfortable no pain when laying in bed some pain when he walks around a Percocet seem to be sufficient to control it The abdomen is completely benign dressing in the left lower quadrant was intact with no obvious drainage dressing Results & Data ([facility]) Vital Signs (Past 12 Hours) Vital Signs Temp Pulse Resp BP Pulse Ox 08/17/21 05:21 80 95/56 L 08/17/21 03:37 36.6 C 73 16 91/52 L 93 08/16/21 22:43 36.9 C 80 16 115/70 93 08/16/21 19:53 36.6 C 70 18 111/73 96 PG Care Time/CCT Total # of Minutes Spent Total Time Spent with Patient: Total time spent is greater than 50% in coordination of care (as documented) at patient's floor/unit and/or counseling patient: Coding Level of Care Code None Diagnoses Abscess of left groin L02.214
--- NOTE | 2021-08-17 11:13 | Hospitalist Progress Note ---
Date of Service August 17, 2021 Assessment & Plan (1) Abscess of left groin: Plan: Imaging and clinical indications of infection. s/p I&D with mesh removal on 08/16/21 - ID consulted, appreciate recommendations, seen this AM via telemedicine by Dr. 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 - ID recommends 3-6 month course of Bactrim DS and Cipro with outpatient f/u with ID * D/C Cefoxitin and start oral Bactrim DS * Continue Cipro 400mg IV BID while in house which can be converted to oral upon d/c - If fails the above regimen, may need IV Imipenem and Amikacin which would be determined after review of mycobacterium sensitivities (2) Hypertension: Plan: - Resume Losartan (3) High cholesterol: Plan: - Continue statin (4) BPH (benign prostatic hyperplasia): Plan: - Continue finasteride (5) DVT prophylaxis: Plan: SCDs for now - Encourage heparin after surgery, but defer to surgery Plan: No further recommendations at this time, will continue to follow along. Post-op incision care/drains/pain control as per primary service Can cap fluids as he is tolerating oral intake Add stool softeners to prevent constipation w/ Percocet use Follow up labs in AM Encourage pt up out of bed as tolerated Admission and Anticipated Discharge Date Admission Date: August 15, 2021 Subjective Patient seen on rounds this morning. Patient is postop day 1 after undergoing incision and drainage of left groin abscess with removal of mesh. Patient reports the pain is adequately controlled at this time, voiding without issue. Passing flatus, no bowel movement yet following surgery. He denies cp or dyspnea. No n/v and is tolerating oral intake. Review of Systems Review of Systems: CONSTITUTIONAL: Denies weight loss/gain, fever and chills, fatigue, malaise, generalized weakness. HEENT: Denies changes in vision and hearing. RESPIRATORY: Denies SOB, cough, wheezing. CV: Denies palpitations, CP, lower extremity edema, orthopnea, PND. GI: Denies abdominal pain, nausea, vomiting and diarrhea. : Denies dysuria and urinary frequency, urgency, hesitancy. MUSCULOSKELETAL: Denies myalgia and joint pain. SKIN: abscess/wound L groin. NEUROLOGICAL: Denies headache, syncope, focal weakness, numbness, tingling. PSYCHIATRIC: Denies recent changes in mood. Denies anxiety and depression. Physical Exam Physical Exam: GENERAL: 66 yo well-developed, well-nourished WM. NAD. LUNGS: Clear to auscultation bilaterally. No W/R/R. CARDIOVASCULAR: Regular rate and rhythm. No M/G/R. ABDOMEN: Soft, non-tender and non-distended. BS normal x 4 quad. EXTREMITIES: No edema. Non-tender. Peripheral pulses +2/4. NEUROLOGIC: A&O x3 PSYCHIATRIC: Cooperative. Appropriate mood and affect. SKIN: L groin wound with [address] Results & Data Results & Data ([facility]) Vital Signs (Past 12 Hours) Vital Signs Temp Pulse Resp BP Pulse Ox 08/17/21 07:19 37.2 C 81 14 105/65 97 08/17/21 05:21 80 95/56 L 08/17/21 03:37 36.6 C 73 16 91/52 L 93 Laboratory Results 08/17/21 05:43 08/17/21 05:43 PG Care Time/CCT Total # of Minutes Spent Total Time Spent with Patient: Total time spent is greater than 50% in coordination of care (as documented) at patient's floor/unit and/or counseling patient: Coding Level of Care Code 98629 Subseq Hosp Care Lvl 2 Diagnoses Abscess of left groin L02.214 Hypertension I10 High cholesterol E78.00 BPH (benign prostatic hyperplasia) N40.0 DVT prophylaxis Z29.9
[2021-08-17] MEDS: DOCUSATE SODIUM 100 MG CAP PO SCH ×2 (11:56→20:27)
[2021-08-17] MEDS: SULFAMETHOXAZOLE/TRIMETHOPRIM DS 800/160MG TAB PO SCH (20:26)
[2021-08-17] MEDS: LOSARTAN POTASSIUM 50 MG TAB PO SCH (20:26)
[2021-08-17] MEDS: ATORVASTATIN 10 MG TAB PO SCH (20:27)
[2021-08-17] MEDS: FINASTERIDE 5 MG TAB PO SCH (20:27)
[2021-08-17] MEDS ORDERED: ATORVASTATIN 10 MG TAB PO SCH (21:00)
[2021-08-18] MEDS: CIPROFLOXACIN / D5W 400 MG/200 ML BAG IV SCH ×2 (05:51→18:14)
[2021-08-18 06:08] LABS: Basophils # (auto) 0.04 K/uL (0-0.2); Basophils % (auto) 0.5 %; Eosinophils # (auto) 0.12 K/uL (0-0.5); Eosinophils % (auto) 1.6 %; Hematocrit (blood only) 35.5 % (42-52); Hemoglobin 11.6 g/dL (14.0-18.0); Immature Granulocytes # (auto) 0.01 K/uL (0.00-0.02); Immature Granulocytes % (auto) 0.1 %; Lymphocytes # (auto) 1.07 K/uL (1.2-3.4); Mean Corpuscular Hemoglobin 30.8 pg (25-34); Mean Corpuscular Hgb Conc 32.7 g/dL (32-36); Mean Corpuscular Volume 94.2 fL (80-100); Mean Platelet Volume 8.5 fL (7.4-10.4); Monocytes # (auto) 0.76 K/uL (0.11-0.59); Neutrophils # (auto) 5.62 K/uL (1.4-6.5); Neutrophils % (auto) 73.8 %; Platelet Count 236 K/uL (130-400); RDW Coefficient of Variation 12.8 % (11.5-14.5); Red Blood Count 3.77 M/uL (4.7-6.1); White Blood Count 7.62 K/uL (4.8-10.8)
[2021-08-18 06:27] LABS: BUN Creatinine Ratio 15.7 (10-20); Calcium 8.6 mg/dl (8.5-10.1); Creatinine Clr Calc Pharmacy 89.2 ml/min; Est GFR (African American) 105.5 ml/min; Potassium 3.9 mmol/L (3.5-5.1)
--- NOTE | 2021-08-18 08:09 | Electrocardiogram Report ---
Test Reason : Blood Pressure : / mmHG Vent. Rate : 122 BPM Atrial Rate : 122 BPM P-R Int : 182 ms QRS Dur : 080 ms QT Int : 292 ms P-R-T Axes : 050 068 036 degrees QTc Int : 416 ms Sinus tachycardia Otherwise normal ECG When compared with ECG of 23-MAY-2021 10:08, Vent. rate has increased BY 61 BPM Confirmed by Brandan Strickland ([id number]) on 08/18/2021 8:08:46 AM Referred By: David Scott Confirmed By:Brandan Strickland
[2021-08-18] MEDS: DOCUSATE SODIUM 100 MG CAP PO SCH ×2 (08:56→20:48)
[2021-08-18] MEDS: SULFAMETHOXAZOLE/TRIMETHOPRIM DS 800/160MG TAB PO SCH ×2 (08:56→20:49)
--- NOTE | 2021-08-18 10:12 | Surgery Progress Note ---
Date of Service August 18, 2021 Assessment & Plan (1) Abscess of left groin: Plan: POD [address] Scott remaining bishnu drain removed packing advanced, plan to remove remaining operative packing tomorrow and consider vac on Friday continue IV Cipro Admission and Anticipated Discharge Date Admission Date: August 15, 2021 Subjective no complaints, appetite good, some flatus Physical Exam Gastrointestinal (Abdomen): Inspection/Auscultation: + abdominal surgical incision (less induration, no erythema, some bishnu drainage) Results & Data ([facility]) Vital Signs (Past 12 Hours) Vital Signs Temp Pulse Resp BP Pulse Ox 08/18/21 07:21 36.6 C 83 18 96/63 L 94 PG Care Time/CCT Total # of Minutes Spent Total Time Spent with Patient: Total time spent is greater than 50% in coordination of care (as documented) at patient's floor/unit and/or counseling patient: Coding Level of Care Code None Diagnoses Abscess of left groin L02.214
--- NOTE | 2021-08-18 13:13 | Hospitalist Progress Note ---
Date of Service August 18, 2021 Assessment & Plan (1) Abscess of left groin: Plan: Left inguinal herniorrhaphy done 06/21. Subsequently, developed increased pain Seen by surgeon as an outpatient on 08/07 and pigtail catheter inserted. Culture obtained. Patient treated with Augmentin. Despite antibiotic regimen, patient developed an increase in his pain along with subjective fevers and chills prompting his evaluation into the emergency department. WBC count elevated at 16.45. 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 If fails this regimen, may need IV Imipenem and Amikacin after review of mycobacterium sensitivities Patient does seem to be showing favorable response. His white blood cell count has normalized. He has defervesced and his pain has nearly resolved. From a medical standpoint, he is hemodynamically stable for discharge to home with continued antibiotic therapy as outlined by infectious disease. He does not need to remain in the hospital for the 1 to 2 weeks awaiting sensitivities on Mycobacterium given his clinical improvement. Will sign off on this patient from a medical standpoint but please do not hesitate to reconsult should a problem arise. Thank you for allowing us to participate in the care of this patient (2) Hypertension: Plan: - continue Losartan (3) High cholesterol: Plan: - Continue statin (4) BPH (benign prostatic hyperplasia): Plan: - Continue finasteride (5) DVT prophylaxis: Plan: SCDs for now - Encourage heparin after surgery, but defer to surgery Plan: Will sign off on this patient from a medical standpoint recommend abx therapy as outlined above Please do not hesitate to reconsult should a problem arise. Thank you for allowing us to participate in the care of this patient Admission and Anticipated Discharge Date Admission Date: August 15, 2021 Supervising Physician Co-Signing Physician Notes chart reviewed, case d/w Enriqueta Marquis PAC - agree w above Subjective Patient seen on daily rounds today. Vocalizes no complaints or concerns. Denies any pain in the left inguinal region. Moving his bladder without difficulty. Last BM was 3 days ago but reports extensive diarrhea that was treated with MiraLAX at that time. No BM since. Is passing flatus. Denies abdominal pain, nausea or vomiting. Denies any fevers or chills. Review of Systems Review of Systems: All systems reviewed and are unremarkable except as noted in HPI and below Denies fevers, chills, headache, nasal congestion, sore throat, cough, chest pain, shortness of breath, palpitations, orthopnea, PND, abdominal pain, nausea, vomiting, diarrhea, constipation, dysuria, hematuria, frequency, back pain, joint pain or swelling, easy bruising or bleeding, skin lesions or rashes. Physical Exam Physical Exam: General: Resting comfortably in his/her hospital bed/bedside chair. NAD. HEENT: Head is AT/NC. Buccal mucosa is moist and pink Neck: No JVD. Negative hepatojugular reflex Cardiac: RRR without M/G/R Lungs: CTA without W/R/R Abdomen: Normoactive X4. Soft and nontender in all quadrants. Surgical dressing to the left lower quadrant. Dry and intact. Does not appear to have any indwelling drains. Dressing not removed as just changed by the surgeon. Extremities: No peripheral clubbing cyanosis or edema Neuro: A&O X4. Cranial nerves II through XII are grossly intact. No focal ne uro deficits Skin: No obvious skin lesions or rashes Psych: Appropriate affect. Pleasant and cooperative Results & Data Results & Data ([facility]) Vital Signs (Past 12 Hours) Vital Signs Temp Pulse Resp BP Pulse Ox 08/18/21 07:21 36.6 C 83 18 96/63 L 94 Laboratory Results 08/18/21 05:19 08/18/21 05:19 PG Care Time/CCT Total # of Minutes Spent Total Time Spent with Patient: Total time spent is greater than 50% in coordination of care (as documented) at patient's floor/unit and/or counseling patient: Coding Level of Care Code 42784 Subseq Hosp Care Lvl 2 Diagnoses Abscess of left groin L02.214 Hypertension I10 High cholesterol E78.00 BPH (benign prostatic hyperplasia) N40.0 DVT prophylaxis Z29.9
[2021-08-18] MEDS: LOSARTAN POTASSIUM 50 MG TAB PO SCH (20:47)
[2021-08-18] MEDS: FINASTERIDE 5 MG TAB PO SCH (20:48)
[2021-08-18] MEDS: ATORVASTATIN 10 MG TAB PO SCH (20:48)
[2021-08-19] MEDS: CIPROFLOXACIN / D5W 400 MG/200 ML BAG IV SCH ×2 (05:44→17:23)
[2021-08-19] MEDS: SULFAMETHOXAZOLE/TRIMETHOPRIM DS 800/160MG TAB PO SCH ×2 (08:42→20:48)
[2021-08-19] MEDS: DOCUSATE SODIUM 100 MG CAP PO SCH ×2 (08:42→20:48)
--- NOTE | 2021-08-19 10:00 | Surgery Progress Note ---
Date of Service August 19, 2021 Assessment & Plan (1) Abscess of left groin: Plan: POD 3 Patient feeling much improvement in symptoms VSS, afebrile Continue on course of abx for mycobacterium Wound packing removed and replaced with wet-dry 4x4 gauze. Overall wound looking better Will consult wound care for consideration of vac placement and possible home tomorrow Will go out on course of po cipro/bactrim per ID with plans for o/p follow up & f/u on send out labs Pt seen/examined with Dr. Scott Admission and Anticipated Discharge Date Admission Date: August 15, 2021 Subjective Patient is feeling much better. He is eating without issues. Pain controlled. Physical Exam Physical Exam: awake/alert Gastrointestinal (Abdomen): Inspection/Auscultation: + abdominal surgical inci genie (packing removed; some drainage. Swelling and erythema improving); abdomen not distended Results & Data ([facility]) Vital Signs (Past 12 Hours) Vital Signs Temp Pulse Resp BP Pulse Ox 08/19/21 07:44 36.6 C 81 18 100/63 94 08/18/21 21:57 37.2 C 80 16 95/56 L 96 PG Care Time/CCT Total # of Minutes Spent Total Time Spent with Patient: Total time spent is greater than 50% in coordination of care (as documented) at patient's floor/unit and/or counseling patient: Coding Level of Care Code None Diagnoses Abscess of left groin L02.214
[2021-08-19] MEDS: LOSARTAN POTASSIUM 50 MG TAB PO SCH (20:48)
[2021-08-19] MEDS: FINASTERIDE 5 MG TAB PO SCH (20:49)
[2021-08-19] MEDS: ATORVASTATIN 10 MG TAB PO SCH (20:49)
[2021-08-20] MEDS: CIPROFLOXACIN / D5W 400 MG/200 ML BAG IV SCH ×2 (06:25→17:49)
[2021-08-20] MEDS: DOCUSATE SODIUM 100 MG CAP PO SCH ×2 (08:20→20:59)
[2021-08-20] MEDS: SULFAMETHOXAZOLE/TRIMETHOPRIM DS 800/160MG TAB PO SCH ×2 (08:20→20:59)
--- NOTE | 2021-08-20 08:52 | Surgery Progress Note ---
Date of Service August 20, 2021 Assessment & Plan (1) Abscess of left groin: Plan: POD#4 we reviewed the incision with the wound nurse and we will apply the VAC system and hopefully the patient can be discharged today and follow-up in the wound clinic in a few days He is to continue on Cipro 500 mg twice daily and Bactrim DS 1 twice daily for approximately 3 to 6 months POD 3 Patient feeling much improvement in symptoms VSS, afebrile Continue on course of abx for mycobacterium Wound packing removed and replaced with wet-dry 4x4 gauze. Overall wound looking better Will consult wound care for consideration of vac placement and possible home tomorrow Will go out on course of po cipro/bactrim per ID with plans for o/p follow up & f/u on send out labs Pt seen/examined with Dr. cSott Admission and Anticipated Discharge Date Admission Date: August 15, 2021 Subjective Denies any pain chills or fever appetite is great her bowel movements still not back to normal Physical Exam Physical Exam: Resting comfortable in bed The left lower quadrant incision the packing was removed yesterday we will easily put some 4 x 4 gauze and a dressing this morning noted in the 4 x 4 gauze in the depth of the wound in the lateral aspect there appeared be some coffee- ground type or drainage did not appear to be feculent in nature the drainage site above the scrotal sac in the left groin area minimal drainage the induration persists although there is no cellulitis and it seems like slightly better Also noted that at the umbilical incision prior to that showed no sign of infection no drainage except this morning had some yellowish drainage purulent in nature coming through the incision I opened it with a Q-tip the fascia was intact I probed it with of pickup to see if there was any foreign body like possibly a stitch abscess and I did not see any. Results & Data ([facility]) Vital Signs (Past 12 Hours) Vital Signs Temp Pulse Resp BP Pulse Ox 08/20/21 08:00 36.5 C 78 14 120/60 95 PG Care Time/CCT Total # of Minutes Spent Total Time Spent with Patient: Total time spent is greater than 50% in coordination of care (as documented) at patient's floor/unit and/or counseling patient: Coding Level of Care Code None Diagnoses Abscess of left groin L02.214
--- NOTE | 2021-08-20 19:31 | Communication Note ---
Date of Service: August 20, 2021 I was notified that patient was sleeping and he apparently woke up and thought that the face of a clock on the wall which is usually white appeared green. This confused the patient somewhat so he notified nursing staff of this event. Patient has had an uneventful day. He has been afebrile and hemodynamically stable. He has not received any narcotic pain medication throughout the day. I went up to the patient's bedside at approximately 7:20 PM this evening. I asked the patient to describe the events. He notes that he was sleeping and he is unsure if he was dreaming or if he was partially aroused but he looked at the clock and it appeared green and then it quickly turned back to the normal color of white. Again the patient says that he may have been sleeping and this may have merely been a dream as at the time of my interview with the patient everything was normal. I discussed with the nurse and again the patient was noted to be afebrile and had not received any narcotic pain medications. He was noted to be hemodynamically stable. I did perform a neurologic examination of the patient. Cranial nerves II through XII were grossly intact. Patient had 5+ and equal muscle strength and full range of motion in both upper and both lower extremities. The patient was alert to time, place, person. Knew he was in the hospital and knew that he had hernia surgery. He was able to identify his surgeon is Dr. Scott. The patient's speech was coherent and non-garbled. He did not have any visual deficits. I reviewed the patient's medications and there are no obvious offending medications that would cause such a scenario. Again at the time of my interview the patient noted that the clock was the normal color. As described above he had a completely normal neurologic examination without any focal deficits. In the absence of any neurologic deficits will merely monitor the patient for now. I did discuss with the nursing staff and asked him to inform me if any other concerning events occur.
[2021-08-20] MEDS: ATORVASTATIN 10 MG TAB PO SCH (20:59)
[2021-08-20] MEDS: FINASTERIDE 5 MG TAB PO SCH (20:59)
[2021-08-20] MEDS: LOSARTAN POTASSIUM 50 MG TAB PO SCH (20:59)
[2021-08-21] MEDS: CIPROFLOXACIN / D5W 400 MG/200 ML BAG IV SCH (05:38)
[2021-08-21] MEDS: DOCUSATE SODIUM 100 MG CAP PO SCH (07:35)
[2021-08-21] MEDS: SULFAMETHOXAZOLE/TRIMETHOPRIM DS 800/160MG TAB PO SCH (07:35)
--- NOTE | 2021-08-21 09:30 | Surgery Progress Note ---
Date of Service August 21, 2021 Assessment & Plan (1) Abscess of left groin: Plan: POD#5 s/p I&D of L groin abscess Vac system placed yesterday. Case management obtained approval for wound vac at home Plan to continue on Po Cipro/Bactrim for 3-6 months for mycobacterium. Confirmed [facility] has meds F/U in wound clinic tomorrow F/U with Dr. Scott within 1 week F/U with Infectious Disease as outpt as patient Has some send out microbiology tests that remain pending and to ensure pt is recovering well on current abx regimen Pt seen/examined by Dr. Scott earlier today Okay for discharge Admission and Anticipated Discharge Date Admission Date: August 15, 2021 Subjective Patient feeling well. Having some trouble keeping vac taped at bottom portion when he walks, but is going to try wearing underwear to see if that will give him more support. Physical Exam Physical Exam: awake/alert, sitting up in chair Gastrointestinal (Abdomen): wound vac in place to L groin Results & Data ([facility]) Vital Signs (Past 12 Hours) Vital Signs Temp Pulse Pulse Pulse Resp BP Pulse Ox 08/21/21 08:51 36.5 C 78 87 87 16 116/71 95 08/21/21 07:50 36.5 C 87 16 116/71 95 PG Care Time/CCT Total # of Minutes Spent Total Time Spent with Patient: Total time spent is greater than 50% in coordination of care (as documented) at patient's floor/unit and/or counseling patient: Coding Level of Care Code None Diagnoses Abscess of left groin L02.214
--- NOTE | 2021-10-09 15:37 | Discharge Summary ---
Date of Service 08/21/2021 Admission HPI Per Admitting Provider This is a 66yM with a PMH of HTN, HLD, who of significance underwent a laparoscopic left inguinal hernia repair with mesh on 06/21/21. Patient did spend the night as intraop some bleeding was encountered, but was discharged without event. Patient was doing fairly well at his 2week post op check and began to increase his activity level. At his third post op evaluation patient with complaints of fullness after eating and was found to have a firm area around the site of his surgical incision. He also complained of it taking longer for him to do his daily exercising. A CT was ordered that showed fluid and gas within the mesh concerning for abscess formation. Thereafter he was scheduled with radiology for drainage which was performed on 08/07 where about 50cc of pus was aspirated and they left a pigtail catheter and he was started on a course of Bactrim. He saw Dr. Scott yesterday and it was decided to proceed with surgical intervention for I&D of the wound with possible mesh removal giving ongoing purulent drainage. Today, the lab called as microbiology from the US guided drainage is revealing cultures + for mycobacterium fortuitum. Due to the nature of this bacteria it was decided it would be best for patient to be directly admitted to the hospital for the start of IV abx. Given all of this, patient denies any nausea/vomiting, abdominal pain, no pain/tenderness at L groin wound, no fevers/chills, and says he is urinating okay. Was able to continue his ADL's, but when he performed exercises was having a little bit more trouble getting through them. He also feels full after eating small meals. Principal Diagnosis abscess of left groin Discharge Exam awake/alert Gastrointestinal (Abdomen) Left groin with wound vac in place Discharge Data Allergies Allergy/AdvReac Type Severity Reaction Status Date / Time Penicillins Allergy Unknown UNSURE OF Verified 10/08/21 14:06 REACTION Consultations 08/15/21 10:23 Consult Hospitalist Routine 08/15/21 13:01 Consult Infectious Diseases Routine Procedures Performed Operation Date: 08/16/21 12:20 Actual Procedures p Incision and drainage abscess cavity of left groin with removal infected Marlex mesh(Left) - David Scott MD, FACS Hospital Course (1) Abscess of left groin: This is a 66yM with a PMH of HTN, HLD, who of significance underwent a laparoscopic left inguinal hernia repair with mesh on 06/21/21. Post operatively he developed an abscess of the left groin. A drain was placed by radiology and the cultures of the fluid grew mycobacterium. Due to the nature of the bacteria it was decided patient should be admitted for IV antibiotic treatment and surgical exploration on 08/15/21. The hospitalists were consulted on the patient for assistance with medical management. On 3 the patient went to the OR with Dr. Scott for incision and drainage of wound with washout and removal of infected mesh. On POD#1 the dressing/packing was changed. He remained on IV abx. Infectious disease was consulted and recommended that the patient discharged on a prolonged course of oral cipro and bactrim. Each day the wound continues to improve and daily packing changes performed. He was eating without issues and pain remained controlled. On POD#4 wound care evaluated the wound and placed a wound vac without issue. On POD#5 wound vac continued to hold good seal. He was deemed stable for discharge to home with plans to follow up in wound care clinic and with ID as an outpatient. He was discharge on oral cipro/bactrim. Total Time Total Time Spent Total Time Spent (In Minutes): 15 Discharge Plan Discharge Items Patient Disposition: Home - Self-Care Reason For Visit: L GROIN ABCESS Discharge Diagnosis: incision and drainage of left groin abscess Activity: Per Instructions section Lifting: No more than 10 pounds Bathing Comment: may shower; no soaking in tubs/pools Exercise/Sports: Wait until after follow-up appointment Driving/Machine Use: no driving while taking any narcotics for pain Non-emergency contact: Surgeon Call non-emergency contact if: you have any medication questions, your symptoms worsen, your pain is not controlled, your pain is worsening, you have a fever, your temperature is above 101.5, your wound has increased redness, your wound has increased drainage and your wound pain has increased Follow-up/Referrals: David Scott MD, FACS [Surgeon] - 08/29/21 1:45 pm (Please call to schedule follow up in clinic in 1 week) Saurabh Martinez MD [Primary Care Provider] - Diet: Regular Addtl Attending Provider Instructions: Please follow up in the wound care center for your follow up of your wound vac. You have an appointment on 08/22/21 at 10AM. The office is located at: [address], [address] [facility] [address] #[phone] You have an appointment with Infectious Disease on 10/24/21 at 12:40pm. Their office is located at [address], [facility]. Use Entrance 1 Phone # is if you have any questions/concerns. Follow up with Dr. Scott within 1 week Addtl Living Nurse Provider Instructions: Given the bacteria growing in the abscess in the left groin, it is recommended (by Infectious Disease) that you continue Ciprofloxacin and Bactrim BS (both twice a day) x3-6 months The wound culture was sent out to an outsourced labs for further sensitivity testing. These results may take 1-2 weeks to weeks. It is important to follow up with your surgeon regarding this. Pending Studies at Discharge: Yes Studies:: mircobiology Stand-Alone Forms: My [facility] [employer], Smoking Cessation Medications and DC Order Prescriptions: New Saccharomyces boulardii [Daily Probiotic (S. boulardii)] 250 mg capsule 250 mg PO DAILY 90 Days Qty: 90 RF: 0 Continued Spectravite Men 50 Plus 300-600-300 mcg tablet 1 tab PO QAM RF: 0 losartan [Cozaar] 50 mg tablet 50 mg PO HS RF: 0 finasteride [Proscar] 5 mg tablet 5 mg PO HS RF: 0 atorvastatin 10 mg tablet 10 mg PO HS RF: 0 aspirin [Adult Aspirin Regimen] 81 mg tablet,delayed release (DR/EC) 81 mg PO HS RF: 0 No Action ciprofloxacin HCl [Cipro] 500 mg Tablet 500 mg PO BID RF: 0 sulfamethoxazole-trimethoprim 800-160 mg tablet 1 tab PO BID RF: 0 oxycodone-acetaminophen [Percocet] 5-325 mg tablet 1 - 2 tab PO .q4-6h PRN (Reason: pain, for initial therapy, max 6 tabs per day) Qty: 10 RF: 0 Discharge Orders: Discharge Order (Routine); Ordered 08/21/21 Ordered By: Elana Alvarado Admission Data Admit Date/Time: 08/15/21 11:09 Attending Provider: David Scott Admit Provider: David Scott Primary Care Provider: Saurabh Martinez Other Providers: Jose Ramon Gordon ; Josh Ojeda ; Jm Chaudhry ; Yanelis Chaparro ; Cheng Tompkins I. ; Ross Meyers II ; Kristel Gomez ; Hoang Fisher ; Tuan Mccall Other Interventions: Discharge Summary Assessment (RN) Last Done: 08/21/21 08:51 Coding Level of Care Code D/C DAY MANAGEMENT <30 MINS Diagnoses Abscess of left groin L02.214
== END 2021-08-21 12:39 | disposition home or self-care (01) | DRG 908 ==
LOC: 3E 11:09

== ENCOUNTER 2022-05-30 04:59 | Observation (INO) ==
--- NOTE | 2022-05-22 14:43 | PAT Medication Instructions ---
Medication Instructions Date of Service May 22, 2022 Home Medications atorvastatin 10 mg tablet 10 mg PO HS finasteride 5 mg tablet (Proscar) 5 mg PO HS losartan 50 mg tablet (Cozaar) 50 mg PO HS vigdllaw-yyy-qftna acid 300 mcg-lycopene 600 mcg-lutein 300 mcg tablet (Spectravite Men 50 Plus) 1 tab PO QAM Lactobacillus acidophilus 10 billion cell capsule (Probiotic) 10,000 mmu cells PO QAM STOP taking 2 weeks before surgery igbbqstk-sna-yaghi acid 300 mcg-lycopene 600 mcg-lutein 300 mcg tablet (Spectravite Men 50 Plus) 1 tab PO QAM Lactobacillus acidophilus 10 billion cell capsule (Probiotic) 10,000 mmu cells PO QAM Take evening before surgery atorvastatin 10 mg tablet 10 mg PO HS finasteride 5 mg tablet (Proscar) 5 mg PO HS losartan 50 mg tablet (Cozaar) 50 mg PO HS Other Notes NOTHING TO EAT OR DRINK AFTER MIDNIGHT. If you have any questions please call us at [phone] or [phone] or [phone] or [phone]
--- NOTE | 2022-05-22 15:07 | Anesthesiology Consultation ---
Date of Service May 22, 2022 Assessment & Plan (1) Encounter for pre-operative examination: - All PAT testing to be faxed to PCP and surgeon's office. - Outpatient joint assessment: Patient is currently scheduled for inpatient pathway. If re-evaluated pending system levels during current pandemic/surgeon requests outpatient pathway, patient is acceptable candidate for outpatient joint program from anesthesia standpoint pending surgeon's office assessment of pt motivation/support/completion of same day joint program preop requirements. Chart Review Chart Review: Acceptable Risk for Surgery and Patient seen in Pre Admission Testing Teaching & Discussion Pre-Anesthesia Teaching/Discussion Notes: Instructed NPO after midnight before surgery, except medications with 15 cc of water. Medication instructions provided according to the PAT guidelines. History Surgery Operation Date: 05/30/22 08:50 Proposed Procedures p Left Total Hip Arthroplasty - Nicholas Bales MD Height/Weight Height: 5 ft 10 in Weight: 92.7 kg Allergies Allergy/AdvReac Type Severity Reaction Status Date / Time Penicillins Allergy Unknown UNSURE OF Verified 05/22/22 12:03 REACTION Medications Home Medications Medication Instructions Recorded Confirmed Last Taken atorvastatin 10 mg tablet 10 mg PO HS 02/09/21 05/22/22 05/08/22 22:00 finasteride 5 mg tablet (Proscar) 5 mg PO HS 02/09/21 05/22/22 05/08/22 22:00 losartan 50 mg tablet (Cozaar) 50 mg PO HS 02/09/21 05/22/22 05/08/22 22:00 suadkicb-fkh-fmtty acid 300 1 tab PO QAM 04/23/21 05/22/22 05/06/22 08:00 mcg-lycopene 600 mcg-lutein 300 mcg tablet (Spectravite Men 50 Plus) Lactobacillus acidophilus 10 10,000 mmu cells PO QAM 04/30/22 05/22/22 05/06/22 08:00 billion cell capsule (Probiotic) Past Medical History Medical History (Updated 05/22/22 @ 15:26 by Marielle Zhang PA-C) BPH (benign prostatic hyperplasia) Fluid collection at surgical site Pt underwent a laparoscopic left inguinal hernia repair with mesh on 06/21/21 that has been complicated by abscess formation. This was drained by radiology on 08/07 and cultures returned + for mycobacterium. He was hospitalized/given IV abx. I&D of left groin abscess done 08/16/21 (Grade 2 view, MAC#3, ETT 7.5 at [facility]) Hearing deficit Hyperlipemia Hypertension controlled, stable per pt Patient denies h/o stroke, seizures, heart attack, heart failure, DM, blood clots or blood transfusions. Exercise / Class Metabolic Activity III < 4 Walking/Shop/Light housework (denies CP or SOB with usual activities) Past Family History Family History Father Hypertension Other Hearing loss No family history of adverse response to anesthesia No family history of bleeding disorder Past Surgical History Surgical History H/O hand surgery Right hand cyst H/O right knee surgery H/O shoulder surgery RT H/O tooth extraction History of colonoscopy (05/09/22) History of esophagogastroduodenoscopy (EGD) History of incision and drainage (08/16/21) Incision and drainage abscess cavity and removal infected Marlex mesh Dr. Scott 08/16/2021 Grade 2 view, MAC 3, ETT 7.5. History of surgery (09/25/21) Exploration Left Groin(Left) - David Scott MD, FACS Hx of cataract surgery RT/LEFT Hx of colonoscopy with polypectomy S/P left inguinal hernia repair (06/21/21) Left Laparoscopic Recurrent Indirect Inguinal Hernia Repair with Marlex Mesh(Left) - David Scott MD, FACS 06/21/21 Grade 1 view, MAC 4, ETT 7.5. Past Anesthesia History No Hx of Anesthesia Complications and No Family Hx of Anesthesia Complications History of PONV No Hx of PONV and No Hx of Motion Sickness Social History Smoking Status: Never smoker Do You Dip or Chew Tobacco: No Hx Alcohol Use: Yes alcohol intake frequency: a few times a week Hx Substance Use: No substance use type: does not use Review of Systems Snoring, denies witnessed apneas. Patient denies chest pain, shortness of breath, dyspnea on exertion, reflux, fever, chills, cough, wheezing, or palpitations. Physical Exam Vital Signs Vitals BP 143/83 P 71 TEMP 97.4 SP02 99% on RA RESP 17 Physical Full cervical extension range of motion without pain TMD 3.5 finger breadths Mallampati Score 2 Dentition: intact, denies chipped or loose teeth, caps/crowns, implants or bridges Lungs: normal respiratory effort. Clear throughout to auscultation, no adventitious breath sounds Cardiac: regular rate and rhythm, no murmurs noted Carotid arteries: negative bruit bilat Lab Results Anesthesia Preop Results Results Anesthesia Widget: WBC 7.04 K/ul (4.8-10.8) 05/22/22 Hgb 15.8 g/dl (14.0-18.0) 05/22/22 Hct 45.0 % (40.1-51.0) 05/22/22 Plt 171 K/uL (130-400) 05/22/22 Na 139 mmol/L (136-145) 05/22/22 K 4.0 mmol/L (3.5-5.1) 05/22/22 Cl 105 mmol/L (98-107) 05/22/22 CO2 28 mmol/L (21-32) 05/22/22 BUN 20 mg/dl (6-23) 05/22/22 Creat 1.01 mg/dl (0.6-1.4) 05/22/22 Glucose Level 86 mg/dl (70-99(Fasting)) 05/22/22 PT 11.4 Seconds (9.0-12.0) 05/22/22 PTT 25.6 Seconds (21.0-31.0) 05/22/22 INR 1.1 (0.9-1.1) 05/22/22 Urine Color Yellow 05/22/22 Urine Appearance Clear (Clear) 05/22/22 Urine pH 5.5 (4.5-7.5) 05/22/22 Urine Specific [place] 1.016 (1.000-1.030) 05/22/22 Urine Protein Negative (Negative) 05/22/22 Urine Glucose (UA) Negative (Negative) 05/22/22 Urine Ketones Negative (Negative) 05/22/22 Urine Blood Negative (Negative) 05/22/22 Urine Nitrite Negative (Negative) 05/22/22 Urine Bilirubin Negative (Negative) 05/22/22 Urine Urobilinogen Negative (Negative) 05/22/22 Urine Leukocyte Esterase Negative (Negative) 05/22/22 Blood Type A Positive 05/22/22 Antibody Screen NEGATIVE 05/22/22 Testing Electrocardiogram Date: 03/01/22 Sinus bradycardia, rate 55 bpm Other Testing Abdomen pelvis CT 05/07/22 Lung bases: The heart is normal in size and without pericardial effusion. The lung bases are clear noting bibasilar atelectasis. A tiny hiatal hernia is note d. Liver: The contrast-enhanced liver is normal in size, contour, and attenuation. There is no intrahepatic biliary ductal dilatation. The hepatic veins and portal veins are patent. A 13 mm right lobe hypodensity on image #124 is unchanged and likely represents a small cyst or hemangioma. Gallbladder: Unremarkable. Spleen: Normal in size and attenuation. Pancreas: Unremarkable. Adrenal glands: Unremarkable. Kidneys: The contrast enhanced kidneys are normal in size and without hydronephrosis. The kidneys enhance symmetrically. A 7 cm simple cyst arises from left upper pole. Abdominal vasculature: The abdominal aorta is normal in course and caliber noting moderate atherosclerotic calcification. Bowel: There is mild to moderate colonic fecal retention. No bowel obstruction is seen. The appendix is well-visualized and normal. Peritoneum: There is no intraperitoneal free air or abdominal ascites. There is a fat-containing umbilical hernia. Lymphadenopathy: None. Pelvic viscera: The prostate gland is normal in size and heterogeneous in attenuation. The gallbladder wall appears thickened and irregular. There is evidence of previous left inguinal herniorrhaphy. A surgical scar is noted in the left groin on image #410. The tiny fluid collection deep to this site seen on 11/09/2021 is no longer identified. A small fat-containing inguinal hernia is noted on the right. Skeletal structures: The skeletal structures appear osteopenic. There is moderate lumbosacral spondylosis. Arthritic change is seen in the hips. No lytic or blastic lesions are seen. IMPRESSION: 1. There is postoperative change from previous left inguinal herniorrhaphy with a surgical scar in the left groin. 2. Inflammation and the tiny fluid collection seen in the left groin on the 11/09/2021 examination have resolved. 3. The bladder wall appears thickened and irregular. This may be related to chronic outlet obstruction. Correlate with clinical findings and urinalysis. 4. Additional findings as above. Chest CTA 03/01/22 Thyroid: Imaged portions of the thyroid gland are normal in size and attenuation. Thoracic aorta: No intramural hematoma is seen on the unenhanced series. The thoracic aorta is normal in caliber and demonstrates standard 3-vessel arch anatomy. No dissection is seen. The arch vessels are widely patent. Pulmonary vasculature: The pulmonary trunk is normal in caliber. There are no filling defects identified in the main, lobar, or segmental pulmonary arteries to indicate pulmonary embolus. Heart: The heart is normal in size and without pericardial effusion. The julio cesar nary arteries are densely calcified. Lungs and pleural spaces: There is no airspace consolidation or pleural effusion. Secretions are noted in the trachea. Dependent atelectasis is present at both lung bases. A 3 mm pulmonary nodule in the right middle lobe on image #25 is unchanged. A 4 mm focus of pleural-based nodularity in the right middle lobe along the minor fissure on image #76 is of low suspicion and was not included on the prior abdominal CT. Mediastinum: There is no mediastinal lymphadenopathy. Florecita: Clear. Axillae: There is no axillary lymphadenopathy. Upper abdomen: A small hiatal hernia is noted. A 6 cm simple cyst is partially visualized in the upper pole of the left kidney. Partially visualized upper abdominal viscera is otherwise within normal limits. Skeletal structures: No lytic or blastic bony lesions are seen. Arthritic change is seen in the shoulders. IMPRESSION: 1. Unremarkable CT angiogram of the thoracic aorta 2. There is no evidence of pulmonary embolus in the main, lobar, or segmental pulmonary arteries. 3. There is no airspace consolidation or pleural effusion. 4. Additional findings as above. Head CT 03/01/22 There is no hemorrhage, mass effect, or evidence of acute territorial ischemia by CT criteria. COVID-19 Risk Screen Screening Information COVID-19 Screen Date: 05/22/22 Exposure 21 Days Family/Household +COVID Last 21 Days: No Exposure 10 Days Any COVID Exposure Last 10 Days: No Symptoms Last 10 Days Experienced COVID Sx Last 10 Days: No + COVID 0-90 Days COVID + in Last 0-90 Days: No
--- NOTE | 2022-05-23 20:42 | History & Physical Report ---
Date of Service May 23, 2022 Assessment & Plan (1) Osteoarthritis of left hip: Plan: PRE-OP Diagnosis: Left hip osteoarthritis Planned Procedure: Left total hip arthroplasty Plan: Patient is scheduled to undergo this procedure at the [facility] with a 23-hour observation admission with Dr. Bales on May. Risks and complications of the procedure such as: Infection, bleeding, pain, scarring, nerve blood vessel damage, weakness, wound problems, stiffness, incomplete relief of symptoms, hardware failure, hardware loosening, wear, fracture, tendon or ligament injury, dislocation, leg length inequality, blood clots, Embolism, heart attack, stroke and were explained to the patient at her visit today. Informed consent to perform the procedure was obtained. Patient also understands risks of proceeding with surgical intervention during the COVID-19 pandemic. Currently he is asymptomatic. Patient states that he has not been in contact with anyone positive for the virus recently. Patient has an appointment to meet with anesthesia earlier this afternoon and while there will obtain CBC with differential, complete metabolic panel, PT/INR, blood type and screen, urinalysis, urine culture and sensitivity, EKG, hemoglobin A1c and a nasal culture for MRSA. Patient will also need preoperative medical clearance from their primary care provider and general surgeon. We have obtained both of these clearances. Patient states that he plans on doing in-home physical therapy for the first 1 to 2 weeks postoperatively with [facility]. Patient states that he will most likely elect to do outpatient physical therapy at a facility near his home. Patient will need a walker, raised toilet seat, shower chair and a hip kit. During today's visit we reviewed the total hip packet as well as precautions. We discussed discharge planning from the hospital. I provided paperwork to obtain a handicap placard for their vehicle. We discussed lectures offered by [facility] in regards to joint replacement surgery via Zoom. I advised the patient that upon discharge from hospital we will prescribe a narcotic pain medication and anti-inflammatory. Patient will also be on an 81 mg aspirin twice daily for blood clot prevention. Patient will be scheduled for 2-week postoperative follow-up visit with myself on June 12 at 10:30 AM. At that visit we will Provide the patient with an order for outpatient physical therapy and rehab protocol. Patient verbalizes understanding of all information provided during today's visit. He thanks for the care that he received. If he has questions or concerns that should arise prior to his surgery, he will contact clinic. This chart was completed utilizing [employer] voice recognition software. Grammatical errors, random word insertions, pronoun errors, and in complete sentences are an occasional consequence of the system. Any questions or concerns about the content, text, or information contained within the body of th is dictation should be addressed directly to the physician for clarification. History of Present Illness Chief Complaint: Chief Complaint: Left hip pain Primary Care Provider: Saurabh Martinez MD History of Present Illness (including history relevant to procedure): 67-year-old male presents to the clinic today for his preoperative history and physical. This patient initially came to see us back in December and discuss total hip arthroplasty, however he wanted to undergo an inguinal hernia repair with Dr. Scott before doing his hip surgery. Patient had significant complications following surgery. He had a reaction to the mesh and had to have it removed. He developed 2 open skin areas 1 in his left lower abdomen and the second 1 in his left inguinal area. He was hospitalized and placed on IV antibiotics for several days, met with infectious disease and the wound care nurses. He states that he was also followed by Dr. Scott for this and also was evaluated by his primary care provider. Patient was on oral antibiotics for a total of 60 days. His wounds appear to be healing well. He had a recent CAT scan that showed no collections in the open skin areas have closed completely. Dr. Scott and his primary care provider both cleared him to proceed with surgical intervention for his hip arthritis. Review Of Systems: A 12 point review of systems is performed and is unremarkable except for those things stated in the [facility] past medical history. Past Medical History: Problems: Hyperlipidemia Anemia Leukopenia Hypertension Localized osteoarthrosis of left hip Vascular ectasias History of prior cigarette smoking BPH with obstruction/lower urinary tract symptoms Medicare annual wellness visit, subsequent History of adenomatous polyp of colon Procedure History Procedure Procedure Date Comments Colonoscopy 05/09/2022 - Impression:Diverticulosis in the sigmoid colon Internal hemorrhoidsNo specimen collectedRepeat in 5 years Inguinal hernia 06/21/2021 - Recurrent Left Inguinal HerniaProcedure: Left laparoscopic recurrent indirect inguinal hernia repair with marlex mesh [facility] Allergies and Sensitivities: penicillin(NA) Social history: Patient states he drinks 1-2 alcoholic beverages per week. He denies tobacco or illicit drug use Family history: Diabetes and cancer Current Home Meds: (Last Updated 05/22 10:13) atorvastatin (atorvastatin 10 mg oral tablet) 10 mg PO Daily bifidobacterium-lactobacillus (Probiotic Formula) Daily finasteride (finasteride 5 mg oral tablet) 5 mg PO Daily Women of childbearing age should not touch or handle broken tablets. - R Clyman 05/08 09:48 losartan (losartan 50 mg oral tablet) 50 mg PO Daily multivitamin (Multi Vitamin+) Mens 50+ Initial Wt: 05/22 92.2 kg 203 lb Allergies Allergy/AdvReac Type Severity Reaction Status Date / Time Penicillins Allergy Unknown UNSURE OF Verified 05/22/22 12:03 REACTION Home Medications Medication Instructions Recorded Confirmed Type atorvastatin 10 mg tablet 10 mg PO HS 02/09/21 05/22/22 History finasteride 5 mg tablet (Proscar) 5 mg PO HS 02/09/21 05/22/22 History losartan 50 mg tablet (Cozaar) 50 mg PO HS 02/09/21 05/22/22 History xagspone-dki-booqs acid 300 1 tab PO QAM 04/23/21 05/22/22 History mcg-lycopene 600 mcg-lutein 300 mcg tablet (Spectravite Men 50 Plus) Lactobacillus acidophilus 10 10,000 mmu cells PO QAM 04/30/22 05/22/22 History billion cell capsule (Probiotic) Past Med/Surg History Medical History BPH (benign prostatic hyperplasia) Fluid collection at surgical site Pt underwent a laparoscopic left inguinal hernia repair with mesh on 06/21/21 that has been complicated by abscess formation. This was drained by radiology on 08/07 and cultures returned + for mycobacterium. He was hospitalized/given IV abx. I&D of left groin abscess done 08/16/21 (Grade 2 view, MAC#3, ETT 7.[address] [facility]) Hearing deficit Hyperlipemia Hypertension controlled, stable per pt Surgical History H/O hand surgery Right hand cyst H/O right knee surgery H/O shoulder surgery RT H/O tooth extraction History of colonoscopy (05/09/22) History of esophagogastroduodenoscopy (EGD) History of incision and drainage (08/16/21) Incision and drainage abscess cavity and removal infected Marlex mesh Dr. Scott 08/16/2021 Grade 2 view, MAC 3, ETT 7.5. History of surgery (09/25/21) Exploration Left Groin(Left) - David Scott MD, FACS Hx of cataract surgery RT/LEFT Hx of colonoscopy with polypectomy S/P left inguinal hernia repair (06/21/21) Left Laparoscopic Recurrent Indirect Inguinal Hernia Repair with Marlex Mesh(Left) - David Scott MD, FACS 06/21/21 Grade 1 view, MAC 4, ETT 7.5. Family History Father Hypertension Other Hearing loss No family history of adverse response to anesthesia No family history of bleeding disorder Social History Smoking Status: Never smoker Tobacco Type: Cigarettes packs per day: 0.5; Second Hand Exposure: No; Hx Alcohol Use: Yes Alcohol type: beer Alcohol Intake Frequency: 2-3 x/Week Hx Substance Use: No Preferred Language: Korean Communication Ability: Effective Visual Impairment: Limited Hearing Ability: Use of Hearing Aid Matrix Drier Tender Required: No Beliefs That Will Affect Care: None marital status: Current Living Situation: Spouse current occupational status: retired Feels Safe at Home: Yes caffeine: No during the past year weight has: decreased > 10 lbs Assistive Devices: Glasses and Hearing Aid - Bilateral Review of Systems All systems reviewed & are unremarkable except as noted in Subjective Physical Exam Physical Exam: Physical Exam: (relevant to the procedure, including heart and lung evaluation) General: Alert and oriented x3 with proper grooming and hygiene Eyes: Pupils are equal and reactive to light with accommodation. Extraocular movements are intact Throat: Posterior oropharynx is clear with absence of edema, erythema or exudate. Patient's dentition is appropriate Cardiac: Regular rate and rhythm no murmurs or gallops appreciated Lungs: Clear to auscultation throughout with no wheezing, rales or rhonchi Abdomen: Mildly obese, nondistended, nontender with NABS. Postoperative incisions in the left lower quadrant and left inguinal area are healed completely with no palpable fluctuance or drainage. Extremities: Left hip flexion is limited to 90 degrees, internal rotation to 0 degrees and external rotation to 50 degrees. Straight leg raise test and Stinchfield tests are both positive. Patient has tenderness to palpation in the groin area. Scour impingement tests are positive. Patient is neurovascular intact left lower extremity. He does walk with an antalgic gait. Neuro: Cranial nerves II through XII are intact with no motor or sensory deficit Skin: See extremities. Otherwise skin is normal appearance no open skin areas or discharge. Results & Data ([facility]) Diagnostic Findings Studies (relevant to the procedure): Radiographic imaging: AP pelvis, false profile and crosstable lateral of the left hip. Severe left hip arthritis is noted, bone on bone. No fractures or dislocations
[~2022-05-30 04:59] MED LIST changes: +ALLERGY Noted to ORDERED Medication SCH; -LR 15ML/HR IV SCH
[2022-05-30] MEDS ORDERED: CeleBREX 200 MG CAP PO SCH (06:00)
[2022-05-30] MEDS ORDERED: LR 500ML BOLUS, THEN 15ML/HR IV SCH (06:00)
[2022-05-30] MEDS ORDERED: LR 60ML/HR IV SCH (06:00)
[2022-05-30] MEDS ORDERED: dexAMETHasone 4 MG TAB PO SCH (06:00)
[2022-05-30] MEDS ORDERED: FAMOTIDINE 20 MG TAB PO SCH (06:00)
[2022-05-30] MEDS ORDERED: traMADol HCL 50 MG TABLET PO SCH (06:00)
[2022-05-30] MEDS ORDERED: ROPIVACAINE 0.5% HCL/PF 150 MG, BUPIVACAINE 0.75% MPF 20 ML, EPINEPHrine 0.15 MG, Ketor... INFIL SCH (06:00)
[2022-05-30] MEDS ORDERED: TRANEXAMIC ACID 1,000 MG **IV Pre-op IV SCH (06:00)
[2022-05-30] MEDS ORDERED: TRANEXAMIC ACID 1,000 MG **IV Intra-op IV SCH (06:00)
[2022-05-30] MEDS ORDERED: Scopolamine 1 MG TDSY TD SCH (06:00)
[2022-05-30] MEDS ORDERED: ACETAMINOPHEN 500 MG TAB PO SCH (06:00)
[2022-05-30] MEDS ORDERED: BUPIVACAINE 0.5 % 5 MG/1 ML PF 10ML VIAL ONE (06:22)
[2022-05-30] MEDS ORDERED: MIDAZOLAM HCL 1 MG/ML 2ML VIAL ONE (06:25)
[2022-05-30] MEDS ORDERED: fentaNYL citrate 100 MCG/2 ML VIAL ONE (06:26)
[2022-05-30] MEDS ORDERED: ONDANSETRON INJ 2 MG/ML 2 ML VIAL ONE (06:27)
[2022-05-30] MEDS ORDERED: PROPOFOL IV EMULSION 10 MG/ML 20 ML VIAL IV ONE (06:27)
[2022-05-30] MEDS ORDERED: ORTHO JOINT ANESTHETIC ONE (06:36)
--- NOTE | 2022-05-30 06:39 | History & Physical Bridge Note ---
Date of Service May 30, 2022 History & Physical Bridge Note I have examined the patient, reviewed the History & Physical and in the interval since the performance of the History & Physical I have noted the following changes of clinical significance: no changes noted
[2022-05-30] MEDS ORDERED: ceFAZolin 2,000 MG/15 ML IV PUSH IV ONE (06:40)
[2022-05-30] MEDS ORDERED: ePHEDrine sulfate 50 MG/ML AMP IV PRN (06:43)
[2022-05-30] MEDS ORDERED: ATROPINE SULFATE 0.1 MG/ML 10ML SYR IV PRN (06:43)
[2022-05-30] MEDS ORDERED: HYDROmorphone INJ 1 MG/ML SYRINGE IV PRN (06:43)
[2022-05-30] MEDS ORDERED: ONDANSETRON INJ 2 MG/ML 2 ML VIAL IV PRN ×2 (06:43→08:47)
[2022-05-30] MEDS ORDERED: KETOROLAC 30 MG/ML VIAL IV PRN (06:43)
[2022-05-30] MEDS ORDERED: ePHEDrine sulfate 50 MG/ML AMP ONE (07:13)
[2022-05-30] MEDS ORDERED: LIDOCAINE 2% MPF LOCAL 5 ML VIAL INFIL ONE (07:14)
--- NOTE | 2022-05-30 08:46 | Operative Report ---
Post Operative Report Pre & Post Diagnosis Operation Date: 05/30/22 07:00 Pre-Op Diagnosis: Osteoarthritis Hip left Post-Op Diagnosis: Osteoarthritis Hip left I identified the patient and participated in the time-out.: Yes Procedure Operation Date: 05/30/22 07:00 Actual Procedures p Left Total Hip Arthroplasty(Left) - Nicholas Bales MD Surgeon Nicholas Bales MD Accountant Cost GAETANO Garcia PA-C. No resident or fellow was available to assist. Estimated Blood Loss 100 Findings Consistent with Post-Op Diagnosis Specimens Left femoral head Anesthesia Type Spinal MAC Complications none Disposition Disposition: Recovery Room Indications 67-year-old male with left hip osteoarthritis refractory to conservative management. X-rays demonstrate [id number] disease. He has been dealing with an inguinal hernia wound with prolonged drainage and we have had to delay his surgery until he has been completely cleared of infection and drainage by his general surgeon. He recently achieved this goal. He is now candidate for total hip arthroplasty. I had a long discussion with him about the risks and benefits of surgery, alternatives, and expected outcomes. After reviewing all these he elected to proceed with surgery. All questions were answered. Informed consent was signed. Description of Procedure Patient was identified in the preoperative holding area where the surgical site, left hip, was marked. A spinal anesthetic was placed, then the patient was brought back to the main operating room, placed in the operating table and moved into the lateral decubitus position. Axillary roll was placed. All bony prominences were padded. Perioperative antibiotics and tranexamic acid 1 gram IV were administered. Operative extremity was prepped and draped in the normal sterile fashion. Prior to incision a multidisciplinary timeout was called. All in the room were in agreement. We began by making an incision for a posterior approach to the hip. We dissected down through subcutaneous tissues to the level of the fascia. The fascia was incised in line with the incision. Charnley bow was placed. Fatty tissue was reflected posteriorly off the back of the greater trochanter to expose the piriformis and short external rotators of the hip. The piriformis and short external rotators were dissected off the posterior aspect of the hip. A box cut was made in the capsule. Inferior hip capsule was released off the femur. The femoral head was dislocated. The femoral neck cut was made at our preoperative template. The acetabulum was then exposed. The labrum was sharply excised. Contents of the cotyloid fossa were removed with electrocautery. We then began reaming at a size 8 mm less than our preoperative template. We reamed up by [address] the way up to a size 58 mm cup. This gave us good bleeding cancellus bone circumferentially. The acetabulum was then irrigated out and dried. The real [place] Gription cup was then impacted down into position with 45 degrees of lateral opening and 25 degrees of anteversion. A single cancellous bone screw was placed up into the ilium. Excellent fixation was obtained. A trial liner for a 36 mm femoral head was then placed. Next we turned our attention to the femur. The lateral neck was removed with a box osteotome. Intramedullary guide was used followed by the lateralizing reamer. We then reamed up to a size 4 [place] stem. We then broached all the way up to a size 4. We began trialing with a high offset neck and a +5 head. Hip was reduced. Leg lengths were symmetric. The hip was stable in extension and external rotation, and stable in the sleeper position. At 90 degrees of hip flexion the hip could be internally rotated 55 degrees before levering out of the cup. I was very happy with the stability exam. Therefore the hip was dislocated and the femoral trial was removed. The acetabulum was re-exposed, and the trial liner was removed. An apex hole eliminator was placed centrally. An Altrx polyethylene liner for a 36 mm femoral head was then impacted into the shell. The locking mechanism was checked to ensure that it had engaged which it had. The femur was re-exposed. The femoral canal was irrigated and dried. The real size 4 high offset [place] femoral stem was opened up. This was impacted down into position. It sat up about 3 mm higher than the femoral trial. Therefore the 36 mm ceramic femoral head with +1.5 mm offset was opened up and gently impacted down onto the trunnion. The hip was atraumatically reduced. Another 1 gram of IV tranexamic acid was started prior to closure. The wound was irrigated out with sterile Betadine solution. The periarticular injection cocktail was then placed. The short external rotators, piriformis, and posterior capsule were repaired through drill holes in the greater trochanter using #2 Vicryl. The fascia was run with a looped #1 PDS. The subcutaneous layer was closed with #1 PDS. The dermal layer was closed with 2-0 Vicryl. Zip line was used for the skin followed by a Silverlon dressing. A compressive dressing was then placed. The patient was then rolled supine. Leg lengths were rechecked and were symmetric. An abduction pillow was placed. Sedation was lifted and the patient was transferred to the recovery room in stable condition. Summary of implants: Depuy [place] Gription Acetabular Shell Sector Cup, 58 mm outer diameter [place] Cancellous bone screw, 6.5 x 40 mm [place] hole eliminator [place] Altrx Polyethylene Acetabular Liner, Neutral, with a 36 mm inner diameter DePuy [place] Femoral stem with [place], 12/14 taper, size 4 high offset 36 mm ceramic femoral head with +1.5 offset Postoperative course: Patient will be admitted to the hospital from the recovery room. Patient will be weightbearing as tolerated with posterior hip precautions. Aspirin for DVT prophylaxis I attest to the content of the Intraoperative Record and any orders documented therein. Any exceptions are noted below.
--- NOTE | 2022-05-30 08:46 | Operative Report ---
Post Operative Report Pre & Post Diagnosis Operation Date: 05/30/22 07:00 Pre-Op Diagnosis: Osteoarthritis Hip left Post-Op Diagnosis: Osteoarthritis Hip left I identified the patient and participated in the time-out.: Yes Procedure Operation Date: 05/30/22 07:00 Actual Procedures p Left Total Hip Arthroplasty(Left) - Nicholas Bales MD Surgeon Nicholas Bales MD Finish Rolls Operator Carlota Garcia PAAntwan Estimated Blood Loss 100 Findings Consistent with Post-Op Diagnosis Specimens femoral head Description of Procedure I was present during the entire case assisting with positioning, prepping, draping, wound retraction, wound closure, dressing and abduction pillow placement. No fellow present. Please see Dr. Bales procedure note for specifics. I attest to the content of the Intraoperative Record and any orders documented therein. Any exceptions are noted below.
[2022-05-30] MEDS ORDERED: METOCLOPRAMIDE HCL INJ 5 MG/ML 2 ML VIAL IV PRN (08:47)
[2022-05-30] MEDS ORDERED: NALOXONE HCL 0.4 MG/1 ML VIAL/CARP IV PRN (08:47)
[2022-05-30] MEDS ORDERED: bisacodyL 10 MG SUPP PR PRN (08:47)
[2022-05-30] MEDS ORDERED: diphenhydrAMINE 50 MG/ML VIAL IV PRN (08:47)
[2022-05-30] MEDS ORDERED: oxyCODONE HCL IR 5 MG TAB (IMMEDIATE RELEASE) PO PRN (08:47)
[2022-05-30] MEDS ORDERED: ALUMINUM/MAGNESIUM SUSP 30 ML UDC PO PRN (08:47)
[2022-05-30] MEDS ORDERED: HYDROmorphone INJ 0.5 MG/0.5 ML SYR IV PRN (08:47)
[2022-05-30] MEDS ORDERED: MAGNESIUM HYDROXIDE SUSP 30 ML UDC PO PRN (08:47)
[2022-05-30] MEDS ORDERED: TAMSULOSIN HCL 0.4 MG CAP PO PRN (08:47)
--- NOTE | 2022-05-30 09:21 | Anesthesiology Progress Note ---
Date of Service May 30, 2022 Anesthesia Post Procedure Vital Signs Vital Signs: Temp Pulse Pulse Resp BP Pulse Ox O2 Del Method 05/30/22 08:55 63 16 106/73 100 Oxymask 05/30/22 08:46 36.7 C 69 12 97/68 L 96 Oxymask 05/30/22 05:28 36.5 C 73 20 140/86 97 Room Air O2 Flow Rate 05/30/22 08:55 6 05/30/22 08:46 6 05/30/22 05:28 Pain Intensity Left Hip: Pain Intensity: 3 Transfer of Care Handoff Completed per policy Notes Mental Status: alert / awake / arousable Patient Amnestic to Procedure: Yes Nausea / Vomiting: adequately controlled Pain: adequately controlled Airway Patency, RR, SpO2: stable & adequate BP & HR: stable & adequate Hydration State: stable & adequate Neuraxial Anesthesia: was administered and sensory block is resolving Anesthetic Complications: no major complications apparent
[2022-05-30] MEDS: SODIUM CHLORIDE 0.9% 1000ML 1,000 ML IV SCH ×2 (10:38→19:32)
[2022-05-30] MEDS: DOCUSATE SODIUM 100 MG CAP PO SCH ×2 (10:39→19:36)
[2022-05-30] MEDS: KETOROLAC TROMETHAMINE 15 MG/ML VIAL IV SCH ×3 (10:39→19:37)
[2022-05-30] MEDS: MULTIVITAMIN TAB PO SCH ×2 (10:39)
[2022-05-30] MEDS: ASPIRIN 81 MG ECTAB PO SCH ×2 (10:39→19:35)
[2022-05-30] MEDS: ADVANCED PROBIOTIC 1250 MG CAPSULE PO SCH (10:41)
--- NOTE | 2022-05-30 14:14 | XRay Report ---
XR pelvis 1-2V routine CLINICAL HISTORY: Postoperative evaluation. COMPARISON: Pelvis radiograph May 22, 2022. FINDINGS: Alignment of the left hip arthroplasty is anatomic. There is no periprosthetic fracture or unexpected radiopaque foreign body. Left pelvic surgical clips are incidentally noted. There is righ t hip osteoarthritis. IMPRESSION: Expected findings following total left hip arthroplasty. ACT 112: Negative or not required by law. Electronically signed by: Stevan Barker M.D. 05/30/2022 2:13 PM
[2022-05-30] MEDS: ACETAMINOPHEN 500 MG TAB PO SCH ×2 (14:28→22:05)
[2022-05-30] MEDS: ceFAZolin 2000MG 2,000 MG/15 ML SYR IV SCH ×2 (14:52→22:04)
[2022-05-30] MEDS ORDERED: TRANEXAMIC ACID / 0.7% NACL 1,000 MG/100 ML BAG IV SCH (15:00)
[2022-05-30] MEDS: Scopolamine CHECK PATCH PLACEMENT SCH ×2 (15:55→22:56)
[2022-05-30] MEDS ORDERED: ATORVASTATIN 10 MG TAB PO SCH (21:00)
[2022-05-30] MEDS ORDERED: LOSARTAN POTASSIUM 50 MG TAB PO SCH (21:00)
[2022-05-30] MEDS ORDERED: FINASTERIDE 5 MG TAB PO SCH (21:00)
[2022-05-30] MEDS ORDERED: SENNA 8.6 MG TAB PO SCH (21:00)
[2022-05-31] MEDS: KETOROLAC TROMETHAMINE 15 MG/ML VIAL IV SCH (02:06)
[2022-05-31] MEDS: SODIUM CHLORIDE 0.9% 1000ML 1,000 ML IV SCH (05:04)
[2022-05-31] MEDS: ACETAMINOPHEN 500 MG TAB PO SCH ×2 (05:13→14:00)
[2022-05-31] MEDS ORDERED: dexAMETHasone 4 MG TAB PO SCH (08:00)
[2022-05-31] MEDS ORDERED: CeleBREX 200 MG CAP PO SCH (09:00)
[2022-05-31] MEDS: Scopolamine CHECK PATCH PLACEMENT SCH (09:00)
[2022-05-31] MEDS: MULTIVITAMIN TAB PO SCH ×2 (09:04)
[2022-05-31] MEDS: ASPIRIN 81 MG ECTAB PO SCH (09:05)
[2022-05-31] MEDS: ADVANCED PROBIOTIC 1250 MG CAPSULE PO SCH (09:05)
[2022-05-31] MEDS: DOCUSATE SODIUM 100 MG CAP PO SCH (09:05)
[2022-05-31 09:31] LABS: Basophils # (auto) 0.01 K/uL (0-0.2); Basophils % (auto) 0.1 %; Hematocrit (blood only) 38.4 % (40.1-51.0); Hemoglobin 13.3 g/dl (14.0-18.0); Immature Granulocytes # (auto) 0.04 K/uL (0.00-0.02); Immature Granulocytes % (auto) 0.4 %; Lymphocytes % (auto) 6.9 %; Mean Corpuscular Hemoglobin 33.1 pg (25.0-34.0); Mean Corpuscular Hgb Conc 34.6 g/dL (32.0-36.0); Mean Corpuscular Volume 95.5 fL (80.0-100.0); Mean Platelet Volume 8.8 fL (9.4-12.4); Monocytes % (auto) 6.9 %; Neutrophils # (auto) 8.69 K/uL (1.4-6.5); Neutrophils % (auto) 85.7 %; Platelet Count 130 K/uL (130-400); RDW Coefficient of Variation 11.8 % (11.5-14.5); RDW Standard Deviation 41.1 fL (36.4-46.3); Red Blood Count 4.02 M/uL (4.63-6.08); White Blood Count 10.14 K/ul (4.8-10.8)
[2022-05-31 09:57] LABS: BUN Creatinine Ratio 22.2 (10-20); Calcium 8.6 mg/dl (8.5-10.1); Creatinine Clr Calc Pharmacy 74.6 ml/min; Est GFR (African American) 81.3 ml/min; Est GFR (Non-African American) 70.2 ml/min; Potassium 4.1 mmol/L (3.5-5.1)
--- NOTE | 2022-05-31 12:42 | Orthopedic Progress Note ---
Date of Service May 31, 2022 Assessment & Plan (1) Osteoarthritis of left hip: Plan: POD 1 - s/p left SUSAN with Dr. Bales PT/OT WBAT with walker POsterior hip precautions ASA for DVT prophylaxis. Ice PRN. Regular diet. Pain medication as prescribed. Case management for disposition. Plan for discharge to home today with and HH arranged. Admission and Anticipated Discharge Date Admission Date: May 30, 2022 Subjective Patient doing well, no complaints of pain in left hip. Feels back to normal self. Did well with PT/OT today. Denies chest pain, shortness of breath, nausea or vomiting. Pain well controlled. Physical Exam Musculoskeletal: Left hip dressing clean, dry and intact. Silverlon in place. Mild tape abrasion. No active bleeding. Mild thigh swelling, no distal edema. Calf nontender and supple. Distal Strength 5/5. Distal pulses intact. Teds in place. Results & Data ([facility]) Vital Signs (Past 12 Hours) Vital Signs Temp Pulse Resp BP Pulse Ox O2 Del Method 05/31/22 07:23 36.5 C 62 16 115/67 99 Room Air 05/31/22 04:44 36.2 C L 78 14 116/63 97 Room Air Laboratory Results 05/31/22 05/31/22 Range/Units 08:53 08:53 WBC 10.14 (4.8-10.8) K/ul RBC 4.02 L (4.63-6.08) M/uL Hgb 13.3 L (14.0-18.0) g/dl Hct 38.4 L (40.1-51.0) % MCV 95.5 (80.0-100.0) fL MCH 33.1 (25.0-34.0) pg MCHC 34.6 (32.0-36.0) g/dL RDW Std Deviation 41.1 (36.4-46.3) fL RDW Coeff of Yoselyn 11.8 (11.5-14.5) % Plt Count 130 (130-400) K/uL MPV 8.8 L (9.4-12.4) fL Immature Gran % (Auto) 0.4 % Neut % (Auto) 85.7 % Lymph % (Auto) 6.9 % Ada % (Auto) 6.9 % Eos % (Auto) 0.0 % Baso % (Auto) 0.1 % Neut # (Auto) 8.69 H (1.4-6.5) K/uL Lymph # (Auto) 0.70 L (1.2-3.4) K/uL Ada # (Auto) 0.70 (0.24-0.82) K/uL Eos # (Auto) 0.00 (0-0.50) K/uL Baso # (Auto) 0.01 (0-0.2) K/uL Immature Gran # (Auto) 0.04 H (0.00-0.02) K/uL Sodium 140 (136-145) mmol/L Potassium 4.1 (3.5-5.1) mmol/L Chloride 109 H (98-107) mmol/L Carbon Dioxide 26 (21-32) mmol/L Anion Gap 5 (3-11) BUN 24 H (6-23) mg/dl Creatinine 1.08 (0.6-1.4) mg/dl Est Cr Clr Drug Dosing 74.6 ml/min Est GFR ( Amer) 81.3 ml/min Est GFR (Non-Af Amer) 70.2 ml/min BUN/Creatinine Ratio 22.2 H (10-20) Glucose 105 H (70-99(Fasting)) mg/dl Calcium 8.6 (8.5-10.1) mg/dl
--- NOTE | 2022-05-31 12:54 | Discharge Summary ---
Date of Service May 31, 2022 Admission HPI Per Admitting Provider History of Present Illness (including history relevant to procedure): 67-year-old male presents to the clinic today for his preoperative history and physical. This patient initially came to see us back in December and discuss total hip arthroplasty, however he wanted to undergo an inguinal hernia repair with Dr. Scott before doing his hip surgery. Patient had significant complications following surgery. He had a reaction to the mesh and had to have it removed. He developed 2 open skin areas 1 in his left lower abdomen and the second 1 in his left inguinal area. He was hospitalized and placed on IV anti biotics for several days, met with infectious disease and the wound care nurses. He states that he was also followed by Dr. Scott for this and also was evaluated by his primary care provider. Patient was on oral antibiotics for a total of 60 days. His wounds appear to be healing well. He had a recent CAT scan that showed no collections in the open skin areas have closed completely. Dr. Scott and his primary care provider both cleared him to proceed with surgical intervention for his hip arthritis. Review Of Systems: A 12 point review of systems is performed and is unremarkable except for those things stated in the HPI past medical history. Past Medical History: Problems: Hyperlipidemia Anemia Leukopenia Hypertension Localized osteoarthrosis of left hip Vascular ectasias History of prior cigarette smoking BPH with obstruction/lower urinary tract symptoms Medicare annual wellness visit, subsequent History of adenomatous polyp of colon Procedure History Procedure Procedure Date Comments Colonoscopy 05/09/2022 - Impression:Diverticulosis in the sigmoid colon Internal hemorrhoidsNo specimen collectedRepeat in 5 years Inguinal hernia 06/21/2021 - Recurrent Left Inguinal HerniaProcedure: Left laparoscopic recurrent indirect inguinal hernia repair with marlex mesh [facility] Allergies and Sensitivities: penicillin(NA) Social history: Patient states he drinks 1-2 alcoholic beverages per week. He denies tobacco or illicit drug use Family history: Diabetes and cancer Current Home Meds: (Last Updated 05/22 10:13) atorvastatin (atorvastatin 10 mg oral tablet) 10 mg PO Daily bifidobacterium-lactobacillus (Probiotic Formula) Daily finasteride (finasteride 5 mg oral tablet) 5 mg PO Daily Women of childbearing age should not touch or handle broken tablets. - R Juan 05/08 09:48 losartan (losartan 50 mg oral tablet) 50 mg PO Daily multivitamin (Multi Vitamin+) Mens 50+ Initial Wt: 12/14 92.2 kg 203 lb Pt was seen and examined bedside. POD #1 s/p left total hip arthroplasty with Dr Bales. Pt was admitted last night for observation. No major events over night. Vitals are stable. Labs unremarkable. X-rays show normal post operative changed. Pt reports they are doing well and pain is controlled. They are tolerating PO intake and voiding adequate amounts. Working well with PT/OT. Pt denies F/C, N/V/D, SOB, CP. Pt deemed medically stable and ready for discharge. Principal Diagnosis left hip osteoarthritis s/p left total hip arthroplasty Discharge Exam General: Pt laying in hospital bed AA&O, in NAD, calm and cooperative during exam Lower Extremity: Dressing in tact and not saturated. Incisions clean, dry and with minimal drainage and no surrounding erythema, warmth or purulent drainage. Pt has full ROM of ankle and all 5 digits. Pt has 5/5 strength with resisted DF/PF. Calf supple and non tender. NVI with sensation to light touch distally and good distal pulses present. Lower extremity noted to have good color and temperature with no signs of vascular or lymphatic insufficiency. Discharge Data Allergies Allergy/AdvReac Type Severity Reaction Status Date / Time Penicillins Allergy Unknown UNSURE OF Verified 05/30/22 05:25 REACTION Procedures Performed Operation Date: 05/30/22 07:00 Actual Procedures p Left Total Hip Arthroplasty(Left) - Nicholas Bales MD Hospital Course (1) Osteoarthritis of left hip: POD 1 - s/p left SUSAN with Dr. Bales PT/OT WBAT with walker POsterior hip precautions ASA for DVT prophylaxis. Ice PRN. Regular diet. Pain medication as prescribed. Case management for disposition. Plan for discharge to home today with and HH arranged. Total Time Total Time Spent Total Time Spent (In Minutes): 45 minutes Discharge Plan Discharge Items Patient Disposition: Home - Home Health Services Reason For Visit: Osteoarthritis Hip left Discharge Diagnosis: Left Hip Osteoarthritis Activity: As commented below Lifting: None Bathing: Keep incision dry Bathing Comment: May shower tomorrow Sexual Activity: Wait until after follow-up appointment Exercise/Sports: Wait until after follow-up appointment Driving/Machine Use: no driving until cleared by public finance specialist Weightbearing: Left weightbearing Weightbearing Comment: as tolerated with walker assistance Non-emergency contact: Surgeon Call non-emergency contact if: you have any medication questions, your pain is not controlled, your temperature is above 101.5, your wound has increased drainage and your wound pain has increased Follow-up/Referrals: Sharath Garcia PA-C [Physician Valve Inserter] - 06/12/22 10:30 am Saurabh Martinez MD [Primary Care Provider] - Diet: Regular Addtl Attending Provider Instructions: Post-operative Instructions Dear Patient and Family/Friends, Before you are discharged from the hospital, it is important to know what to expect when you get home after surgery. To that end, we have created this sheet of discharge instructions which covers many commonly asked questions. Make sure you go through this sheet in its entirety with your nurse before you are discharged. Please note that we will go over the specifics of your surgery and recovery when you return for your first post-operative visit. Sincerely, Dr. Bales Medications 1. Oxycodone 5 mg: take 1-2 tabs every 4-6 hours as needed for pain. A prescription will be sent to your pharmacy. 2. Diclofenac Sodium 75 mg: take 1 tab twice daily for 30 days post operatively for pain and inflammation relief. This will also be sent to your pharmacy with 1 refill. 3. Aspirin 81 mg: take 1 tab twice daily for 30 days post operatively for blood clot prevention. Please purchase. 4. Extra Strength Tylenol 500 mg: take 2 tabs every 6-8 hours as needed for additional pain relief. Please purchase. Pain Expect to be in a fair amount of pain after surgery. Remember, our goal is not to eliminate your pain, but to make it tolerable. It is a good idea to stay ahead of your pain by taking the medications you were prescribed once you get home. Typically, the pain starts improving 3-7 days after surgery. You should start weaning off the narcotic pain medication (oxycodone, hydrocodone, hydromorphone, morphine) as soon as your pain improves. Please call our office if your pain is not adequately controlled. Ice Ice your operative site at least 5 times a day for 15-30 minutes at a time. Make sure you have a thin cloth between the ice or cooling unit and your skin to prevent williamson bite. This is especially important if you received a nerve block. Continue icing your operative site for the first 5-7 days after surgery, then as needed. Diet/Nausea/Vomiting Start by drinking clear liquids and eating crackers. If you can tolerate this, then you may resume your normal diet. If you feel nauseated or vomit, take Zofran/ondansetron (if prescribed). Please call our office if you have intractable nausea or vomiting, or, if after hours, you may go to the Emergency Room for help. Constipation Constipation is a common side effect of narcotic pain medication. If you have not had a bowel movement within 2 days after surgery, we recommend purchasing an over the counter laxative such as Milk of Magnesia, Dulcolax, or Miralax from a local pharmacy, and taking it as instructed. Call our clinic if any questions. Nerve block The anesthesia team sometimes places a nerve block to help with post-operative pain control. This results in significant numbness and inability to move the extremity. The nerve block usually wears off in 8-12 hours, but sometimes can last up to 24 hours. Please call our office if you are still unable to move your extremity after 24 hours, unless you received a pain pump to take home. Nerve blocks typically wear off quickly, so start taking pain medication as soon as you start feeling soreness near your surgical site. Weight bearing and Range of Motion. Do not bear any weight through your operative extremity immediately after surgery. If you had upper extremity surgery, do not lift anything with that arm. If you are in a knee brace, keep it locked in place until your follow-up. We will discuss your weight bearing, range of motion, and lifting restrictions in detail at your first post-operative appointment. Continuous Passive Motion (CPM) Machine If you were prescribed a CPM machine, it will start after your first post-opera tive appointment, at which time we will give you instructions on the range of motion settings and duration of treatment Physical therapy You will be given a prescription for physical therapy or occupational therapy at your first post-operative appointment. Typically, patients start therapy within 1 week of surgery Wound care and showering We will inspect your wound at your first post-operative visit, and may do a dressing change at that time. Most patients will be in a water-proof dressing that is removed 14 days after surgery. It is normal to see some dried blood on the dressing. Do not remove your dressing, paper strips or sutures yourself unless you are given permission. Showering is allowed the day after surgery. Do not scrub or remove any dressings. The wound should not be submerged underwater (i.e. in a bathtub or pool) until 4 weeks after surgery SERGIO stockings If you were given white stockings, these are to be worn at all times except to shower (on both legs) for the first 2 weeks after surgery. Driving You may not drive while taking narcotic pain medication or while in a cast, splint, sling or brace. You, the patient, need to make the final determination about when you are safe to drive, however, the earliest you may consider driving after surgery is below: Hand/Wrist/Elbow Surgery: 3 days Shoulder Surgery: 2 weeks Hip,/Knee/Ankle Surgery: 4 weeks Fracture repair: 6 weeks Return to Work Your return to work depends on what surgery was done and what type of work you do. Please bring any paperwork your employer needs completed to your first post-operative visit. Also, bring a description of your job duties, as this helps us to understand what risks you may face at work. Travel Avoid long distance travel (greater than 1 hour) in airplanes and cars for the first 6 weeks after surgery. If you must travel, you need to have a Doppler ultrasound done before you travel to rule out a blood clot in your legs. Follow-up You should have a follow-up appointment already scheduled 1-2 days after surgery. If not, please contact our office to make this appointment before you leave the hospital. When to call the office It is normal to have swelling and bruising in the limb that was operated on. This will improve with time. It is also normal to have fevers for the first 2 days after surgery. Reasons you should call your doctor include: Uncontrolled pain; Nausea, vomiting, or constipation that does not improve with medication; Fevers over 101.5, chills, sweats; Drainage or bleeding from the wound; Foul odor; Spreading areas of redness; Any other concerns Pending Studies at Discharge: No Stand-Alone Forms: My [facility] Medications and DC Order Prescriptions: New aspirin 81 mg Tablet,Delayed Release (Dr/Ec) 81 mg PO BID 30 Days Qty: 60 0RF oxycodone 5 mg tablet 5 mg PO Q4H Qty: 28 0RF diclofenac sodium 75 mg tablet,delayed release (DR/EC) 75 mg PO BID 30 Days Qty: 60 1RF Continued Spectravite Men 50 Plus 300-600-300 mcg tablet 1 tab PO QAM losartan [Cozaar] 50 mg tablet 50 mg PO HS finasteride [Proscar] 5 mg tablet 5 mg PO HS atorvastatin 10 mg tablet 10 mg PO HS Probiotic 10 billion cell Capsule 10,000 mmu cells PO QAM Discharge Orders: Discharge Order (Routine); Ordered 05/31/22 Ordered By: Myesha Cee Admission Data Admit Date/Time: 05/30/22 08:48 Attending Provider: Nicholas Bales Admit Provider: Nicholas Bales Primary Care Provider: Saurabh Martinez Other Providers: [facility]
== END 2022-05-31 14:09 | disposition home health service (06) ==
LOC: ASU 04:59 → 3E 04:59
DX: Z79.899 Other long term (current) drug therapy; Z88.0 Allergy status to penicillin; M65.9 Synovitis and tenosynovitis, unspecified; M16.12 Unilateral primary osteoarthritis, left hip

== ENCOUNTER 2023-08-28 05:00 | Observation (INO) ==
--- NOTE | 2023-08-07 13:00 | PAT Medication Instructions ---
Medication Instructions Date of Service August 07, 2023 Home Medications Medication Instructions Recorded diclofenac sodium 75 mg 75 mg PO BID Post op pain and 05/30/22 tablet,delayed release inflammation relief 30 days #60 tabs oxycodone 5 mg tablet 5 mg PO Q4H post op pain control 05/30/22 #28 tabs finasteride 5 mg tablet (Proscar) 5 mg PO PM losartan 50 mg tablet (Cozaar) 25 mg PO PM Spectravite Men 50 Plus 1 tab PO QAM Lactobacillus acidophilus 10 billion cell capsule (Probiotic) 10,000 mmu cells PO QAM diclofenac sodium 75 mg tablet,delayed release 75 mg PO BID Post op pain and inflammation relief oxycodone 5 mg tablet 5 mg PO Q4H post op pain control rosuvastatin 5 mg tablet 5 mg PO PM Continue as directed oxycodone 5 mg tablet 5 mg PO Q4H post op pain control ASK your surgeon for instructions diclofenac sodium 75 mg tablet,delayed release 75 mg PO BID Post op pain and inflammation relief DO NOT take the morning of surgery Spectravite Men 50 Plus 1 tab PO QAM Lactobacillus acidophilus 10 billion cell capsule (Probiotic) 10,000 mmu cells PO QAM Take evening before surgery finasteride 5 mg tablet (Proscar) 5 mg PO PM losartan 50 mg tablet (Cozaar) 25 mg PO PM rosuvastatin 5 mg tablet 5 mg PO PM Other Notes If you have any questions please call us at [phone] or [phone] or [phone] or [phone]
--- NOTE | 2023-08-15 14:48 | Anesthesiology Consultation ---
Date of Service August 15, 2023 Assessment & Plan (1) Encounter for pre-operative examination: - s/p left SUSAN 05/30/22: SAB L3-L4 1 attempt. - Outpatient joint pathway: Per surgeon and patient, plan for outpatient joint program. Upon review of chart-patient is an acceptable candidate for Same Day Joint Program from anesthesia perspective pending perioperative course. Pending patient is motivated, has good support and surgeon's office completes Same Day Joint Program preop requirements- patient may proceed with outpatient SUSAN. Chart Review Chart Review: Acceptable Risk for Surgery and Patient seen in Pre Admission Testing Teaching & Discussion Pre-Anesthesia Teaching/Discussion Notes: Instructed NPO after midnight before surgery, except medications with 15 cc of water. Medication instructions provided according to the PAT guidelines. History Surgery Operation Date: 08/28/23 08:50 Proposed Procedures p OP: Right Total Hip Arthroplasty - Nicholas Bales MD Height/Weight Height: 5 ft 10 in Weight: 97 kg Allergies Allergy/AdvReac Type Severity Reaction Status Date / Time Penicillins Allergy Unknown UNSURE OF Verified 08/07/23 11:31 REACTION Medications Home Medications Medication Instructions Recorded Confirmed Last Taken finasteride 5 mg tablet (Proscar) 5 mg PO PM 02/09/21 08/07/23 05/29/22 18:00 losartan 50 mg tablet (Cozaar) 25 mg PO PM 02/09/21 08/07/23 05/29/22 18:00 [id number] 300 mcg-K 60 1 tab PO QAM 04/23/21 08/07/23 05/23/22 09:00 mcg-lycop 600 mcg-lutein 300 mcg tablet (Spectravite Men 50 Plus) Lactobacillus acidophilus 10 10,000 mmu cells PO QAM 04/30/22 08/07/23 05/23/22 09:00 billion cell capsule (Probiotic) diclofenac sodium 75 mg 75 mg PO BID Post op pain and 05/30/22 08/07/23 Unknown tablet,delayed release inflammation relief 30 days #60 tabs oxycodone 5 mg tablet 5 mg PO Q4H post op pain control 05/30/22 08/07/23 Unknown #28 tabs rosuvastatin 5 mg tablet 5 mg PO PM 08/07/23 08/07/23 Unknown Past Medical History Medical History BPH (benign prostatic hyperplasia) Fluid collection at surgical site Pt underwent a laparoscopic left inguinal hernia repair with mesh on 06/21/21 that has been complicated by abscess formation. This was drained by radiology on 08/07 and cultures returned + for mycobacterium. He was hospitalized/given IV abx. I&D of left groin abscess done 08/16/21 (Grade 2 view, MAC#3, ETT 7.5 at [facility]) Hearing deficit Hyperlipemia Hypertension controlled, stable per pt Osteoarthritis Patient denies h/o stroke, seizures, heart attack, heart failure, DM, blood clots/DVTs or blood transfusions. Exercise / Class Metabolic Activity III < 4 Walking/Shop/Light housework (denies chest discomfort or shortness of breath with usual activities, less than 8 steps in home) Past Family History Family History Father Hypertension Other Hearing loss No family history of adverse response to anesthesia No family history of bleeding disorder Past Surgical History Surgical History H/O hand surgery Right hand cyst H/O right knee surgery H/O shoulder surgery RT H/O tooth extraction History of colonoscopy (05/09/22) History of esophagogastroduodenoscopy (EGD) History of incision and drainage (08/16/21) Incision and drainage abscess cavity and removal infected Marlex mesh Dr. Scott 08/16/2021 Grade 2 view, MAC 3, ETT 7.5. History of surgery (09/25/21) Exploration Left Groin(Left) - David Scott MD, FACS History of total hip arthroplasty left Hx of cataract surgery RT/LEFT Hx of colonoscopy with polypectomy S/P left inguinal hernia repair (06/21/21) Left Laparoscopic Recurrent Indirect Inguinal Hernia Repair with Marlex Mesh(Left) - David Scott MD, FACS 06/21/21 Grade 1 view, MAC 4, ETT 7.5. Past Anesthesia History No Hx of Anesthesia Complications and No Family Hx of Anesthesia Complications History of PONV No Hx of PONV and No Hx of Motion Sickness Social History Smoking Status: Former smoker tobacco type: cigarettes Do You Dip or Chew Tobacco: No Smoking End Date: 2000 Hx Alcohol Use: Yes Alcohol type: beer alcohol intake frequency: a few times a week (none currently) Hx Substance Use: Yes substance use type: marijuana Substance Use Type Other:: advised hold 3 day or longer Review of Systems Patient denies chest pain, shortness of breath, dyspnea on exertion, snoring, witnessed apneas, reflux, fever, chills, cough, wheezing, or palpitations. Physical Exam Vital Signs Vitals BP 125/83 P 82 TEMP 97.8 SP02 95% on RA RESP 17 Physical Patient resting comfortably in chair in no acute distress, alert and oriented, responding appropriately throughout visit Full cervical extension range of motion without pain TMD 3.5 finger breadths Mallampati Score 2 Dentition: one crown, denies chipped or loose teeth, implants or bridges Lungs: normal respiratory effort. Good air movement, clear throughout to auscultation, no adventitious breath sounds Cardiac: regular rate and rhythm, no murmurs noted Carotid arteries: negative bruit bilat Lab Results Anesthesia Preop Results Results Anesthesia Widget: WBC 6.32 K/ul (4.8-10.8) 08/15/23 Hgb 15.8 g/dl (14.0-18.0) 08/15/23 Hct 43.8 % (42.0-52.0) 08/15/23 Plt 191 K/uL (130-400) 08/15/23 Na 137 mmol/L (136-145) 08/15/23 K 3.8 mmol/L (3.5-5.1) 08/15/23 Cl 106 mmol/L (98-107) 08/15/23 CO2 22 mmol/L (21-32) 08/15/23 BUN 16 mg/dl (6-23) 08/15/23 Creat 0.99 mg/dl (0.6-1.4) 08/15/23 Glucose Level 95 mg/dl (70-99(Fasting)) 08/15/23 PT 11.2 Seconds (9.0-12.0) 08/15/23 PTT 26 Seconds (21-31) 08/15/23 INR 1.0 (0.9-1.1) 08/15/23 Urine Color Yellow 08/15/23 Urine Appearance Clear (Clear) 08/15/23 Urine pH 5.5 (4.5-7.5) 08/15/23 Urine Specific [place] 1.024 (1.000-1.030) 08/15/23 Urine Protein Negative (Negative) 08/15/23 Urine Glucose (UA) Negative (Negative) 08/15/23 Urine Ketones Trace (Negative) H 08/15/23 Urine Blood Negative (Negative) 08/15/23 Urine Nitrite Negative (Negative) 08/15/23 Urine Bilirubin Negative (Negative) 08/15/23 Urine Urobilinogen Negative (Negative) 08/15/23 Urine Leukocyte Esterase Negative (Negative) 08/15/23 Blood Type A Positive 08/15/23 Antibody Screen NEGATIVE 08/15/23 Testing Electrocardiogram Date: 08/15/23 NSR, rate 73 bpm Chest X-Ray Date: 02/07/23 No acute abnormalities and in particular no radiographic evidence of pneumonia.
[2023-08-28] MEDS: LR 60ML/HR IV SCH (06:03)
[2023-08-28] MEDS: Scopolamine 1 MG TDSY TD SCH (06:03)
[2023-08-28] MEDS: ACETAMINOPHEN 500 MG TAB PO SCH ×2 (06:03→16:09)
[2023-08-28] MEDS: LR 500ML BOLUS, THEN 15ML/HR IV SCH (06:03)
[2023-08-28] MEDS: CeleBREX 200 MG CAP PO SCH (06:03)
[2023-08-28] MEDS: FAMOTIDINE 20 MG TAB PO SCH (06:04)
[2023-08-28] MEDS: dexAMETHasone**PF** 10 MG/ML VIAL IV SCH (06:04)
[2023-08-28] MEDS: traMADol HCL 50 MG TABLET PO SCH (06:13)
[2023-08-28] MEDS ORDERED: MEPIVACAINE HCL 1.5% 30 ML VIAL ONE (06:19)
[2023-08-28] MEDS ORDERED: MIDAZOLAM HCL 1 MG/ML 2ML VIAL ONE ×2 (06:35)
[2023-08-28] MEDS ORDERED: fentaNYL citrate PF 100 MCG/2 ML VIAL ONE (06:36)
--- NOTE | 2023-08-28 06:36 | History & Physical Bridge Note ---
Date of Service August 28, 2023 History & Physical Bridge Note I have examined the patient, reviewed the History & Physical and in the interval since the performance of the History & Physical I have noted the following changes of clinical significance: no changes noted
[2023-08-28] MEDS ORDERED: ATROPINE SULFATE 0.1 MG/ML 10ML SYR IV PRN (06:39)
[2023-08-28] MEDS ORDERED: ePHEDrine sulfate 50 MG/ML AMP IV PRN (06:39)
[2023-08-28] MEDS ORDERED: fentaNYL citrate PF 100 MCG/2 ML VIAL IV PRN (06:39)
[2023-08-28] MEDS ORDERED: ONDANSETRON INJ 2 MG/ML 2 ML VIAL IV PRN ×2 (06:39→12:45)
[2023-08-28] MEDS: TRANEXAMIC ACID 1,000 MG **IV Pre-op IV SCH (06:54)
[2023-08-28] MEDS: ceFAZolin 2000MG 2,000 MG/15 ML SYR IV SCH ×2 (07:00→18:07)
[2023-08-28] MEDS ORDERED: ONDANSETRON INJ 2 MG/ML 2 ML VIAL ONE (07:11)
[2023-08-28] MEDS ORDERED: PROPOFOL IV EMULSION 10 MG/ML 20 ML VIAL IV ONE (07:11)
[2023-08-28] MEDS ORDERED: LIDOCAINE 2% 2 ML VIAL/AMP(20MG/ML) INFIL ONE (07:11)
[2023-08-28] MEDS ORDERED: ePHEDrine sulfate 50 MG/ML AMP ONE (07:24)
[2023-08-28] MEDS ORDERED: PHENYLEPHRINE HCL 10 MG/ML VIAL ONE (07:31)
[2023-08-28] MEDS: TRANEXAMIC ACID 1,000 MG **IV Intra-op IV SCH (08:02)
[2023-08-28] MEDS: ORTHO JOINT ANESTHETIC ONE (08:04)
[2023-08-28] MEDS: ROPIV 0.5% 246mg, Ketorolac 30mg, EPINEPHrine 0.5mg in NSS INFIL SCH (08:22)
--- NOTE | 2023-08-28 08:37 | Operative Report ---
Post Operative Report Pre & Post Diagnosis Operation Date: 08/28/23 07:00 Pre-Op Diagnosis: Right Hip Osteoarthritis Post-Op Diagnosis: Right Hip Osteoarthritis I identified the patient and participated in the time-out.: Yes Procedure Operation Date: 08/28/23 07:00 Actual Procedures p Right Total Hip Arthroplasty - Nicholas Bales MD Surgeon Nicholas Bales MD Disc Pad Grinder GAETANO Garcia PA-C. No resident or fellow was available to assist. Estimated Blood Loss 100 Findings Consistent with Post-Op Diagnosis Fluids 1100 cc crystalloid Specimens Right femoral head Anesthesia Type Spinal MAC Complications none Disposition Disposition: Recovery Room Indications 68-year-old male with right hip osteoarthritis refractory to conservative management. X-rays demonstrate [id number] disease with marginal osteophytes. He has previously undergone a left total hip arthroplasty by myself with a good result. He desires to have the same operation performed on his right hip. I had a long discussion with him about the risk and benefits of surgery, alternatives to surgery, and expected outcomes. After reviewing all these he elected to proceed with surgery. All questions were answered. Informed consent was signed. Description of Procedure Patient was identified in the preoperative holding area where the surgical site, right hip, was marked. A spinal anesthetic was placed, then the patient was brought back to the main operating room, placed in the operating table and moved into the lateral decubitus position. Axillary roll was placed. All bony prominences were padded. Perioperative antibiotics and tranexamic acid 1 gram IV were administered. The operative extremity was prepped and draped in the normal sterile fashion. Prior to incision a multidisciplinary timeout was called. All in the room were in agreement. We began by making an incision for a posterior approach to the hip. We dissected down through subcutaneous tissues to the level of the fascia. The fascia was incised in line with the incision. Charnley bow was placed. Fatty tissue was reflected posteriorly off the back of the greater trochanter to ex pose the piriformis and short external rotators of the hip. Quadratus femoris was taken off the femur subperiosteally. The piriformis and short external rotators were dissected off the posterior aspect of the hip. A box cut was made in the capsule. Inferior hip capsule was released off the femur. The femoral head was dislocated. The femoral neck cut was made at our preoperative template. The acetabulum was then exposed. The labrum was sharply excised. Contents of the cotyloid fossa were removed with electrocautery. We then began reaming at a size 8 mm less than our preoperative template. We reamed up by 1 [address] the way up to a size 58 mm cup. This gave us good bleeding cancellus bone circumferentially. The acetabulum was then irrigated out and dried. The real [place] Gription cup was then impacted down into position with 45 degrees of lateral opening and 25 degrees of anteversion. A single cancellous bone screw was placed up into the ilium. Excellent fixation was obtained. A trial liner for a 36 mm femoral head was then placed. Next we turned our attention to the femur. The lateral neck was removed with a box osteotome. Intramedullary guide was used to establish the intramedullary canal, however this was difficult due to the patient's cancellous bone being quite dense. We then broached all the way up to a size 3 Actis stem. We began trialing with a high offset neck and a +5 head. Hip was reduced. Leg lengths were symmetric. The hip was stable in extension and external rotation, and stable in the sleeper position. At 90 degrees of hip flexion the hip could be internally rotated 55 degrees before levering out of the cup. I was very happy with the stability exam. Therefore the hip was dislocated and the femoral trial was removed. The acetabulum was re-exposed, and the trial liner was removed. [place] hole eliminator screw was placed. An Altrx polyethylene liner for a 36 mm femoral head was then impacted into the shell. The locking mechanism was checked to ensure that it had engaged which it had. The femur was re-exposed. The femoral canal was irrigated and dried. The real size 3 high offset Actis femoral stem was opened up. This was impacted down into position. The 36 mm ceramic femoral head with +5 mm offset was opened up and gently impacted down onto the trunnion. The hip was atraumatically reduced. Another 1 gram of IV tranexamic acid was started prior to closure. The wound was irrigated out with sterile Betadine solution. The periarticular injection cocktail was then placed. The short external rotators, piriformis, and posterior capsule were repaired through drill holes in the greater trochanter using #2 Vicryl. The fascia was run with a looped #1 PDS. The subcutaneous layer was closed with #1 PDS. The dermal layer was closed with 2-0 Vicryl. Zip line was used for the skin followed by a Silverlon dressing. A compressive dressing was then placed. The patient was then rolled supine. Leg lengths were rechecked and were symmetric. An abduction pillow was placed. Sedation was lifted and the patient was transferred to the recovery room in stable condition. Summary of implants: Depuy [place] Gription Acetabular Shell Sector Cup, 58 mm outer diameter [place] Cancellous bone screw, 6.5 x 40 mm [place] hole eliminator [place] Altrx Polyethylene Acetabular Liner, Neutral, with a 36 mm inner diameter DePuy Actis collared cementless Femoral stem, 12/14 taper, size 3 high offset 36 mm ceramic femoral head with +5 offset Postoperative course: Patient will be discharged home from the recovery room after passing the safety checklist. Patient will be weightbearing as tolerated with posterior hip precautions. Aspirin for DVT prophylaxis I attest to the content of the Intraoperative Record and any orders documented therein. Any exceptions are noted below.
[2023-08-28] MEDS ORDERED: oxyCODONE/ACETAMINOPHEN 5mg/325mg TAB PO PRN (08:46)
--- NOTE | 2023-08-28 08:46 | Operative Report ---
Post Operative Report Pre & Post Diagnosis Operation Date: 08/28/23 07:00 Pre-Op Diagnosis: Right Hip Osteoarthritis Post-Op Diagnosis: Right Hip Osteoarthritis I identified the patient and participated in the time-out.: Yes Procedure Operation Date: 08/28/23 07:00 Actual Procedures p Right Total Hip Arthroplasty - Nicholas Bales MD Surgeon Nicholas Bales MD Evaluation Assistant GAETANO Garcia PA-C. No resident or fellow was available to assist. Estimated Blood Loss 100 Findings Consistent with Post-Op Diagnosis Specimens femoral head Description of Procedure I was present during the entire procedure assisting with positioning, prepping, draping, wound retraction, wound closure, dressing and abduction pillow placement. No fellow present. Please see Dr. Bales procedure note for specifics of the case. I attest to the content of the Intraoperative Record and any orders documented therein. Any exceptions are noted below.
[2023-08-28] MEDS ORDERED: oxyCODONE HCL IR 5 MG TAB (IMMEDIATE RELEASE) PO SCH (09:00)
--- NOTE | 2023-08-28 11:18 | Anesthesiology Progress Note ---
Date of Service August 28, 2023 Anesthesia Post Procedure Vital Signs Vital Signs: Temp Pulse Pulse Resp BP Pulse Ox O2 Del Method 08/28/23 10:17 73 18 119/65 96 Room Air 08/28/23 09:47 36.5 C 71 18 109/56 L 94 Room Air 08/28/23 09:35 67 14 106/52 L 93 Room Air 08/28/23 09:25 36.4 C L 64 15 104/54 L 93 Room Air 08/28/23 09:15 74 15 107/58 L 94 Room Air 08/28/23 09:05 73 16 106/66 98 Oxymask 08/28/23 08:55 73 21 112/61 97 Oxymask 08/28/23 08:45 36.2 C L 80 16 108/60 94 Room Air 08/28/23 05:44 36.7 C 78 20 155/94 H 94 Room Air O2 Flow Rate 08/28/23 10:17 08/28/23 09:47 08/28/23 09:35 08/28/23 09:25 08/28/23 09:15 08/28/23 09:05 5 08/28/23 08:55 5 08/28/23 08:45 08/28/23 05:44 Pain Intensity Right Hip: Pain Intensity: 2 Notes Mental Status: alert / awake / arousable Patient Amnestic to Procedure: Yes Nausea / Vomiting: adequately controlled Pain: adequately controlled Airway Patency, RR, SpO2: stable & adequate BP & HR: stable & adequate Hydration State: stable & adequate Neuraxial Anesthesia: was administered and sensory block is resolving Anesthetic Complications: no major complications apparent
[2023-08-28] MEDS ORDERED: MAGNESIUM HYDROXIDE SUSP 30 ML UDC PO PRN (12:45)
[2023-08-28] MEDS ORDERED: diphenhydrAMINE 50 MG/ML VIAL IV PRN (12:45)
[2023-08-28] MEDS ORDERED: NALOXONE HCL 0.4 MG/1 ML VIAL/CARP IV PRN (12:45)
[2023-08-28] MEDS ORDERED: HYDROmorphone INJ 0.5 MG/0.5 ML SYR IV PRN (12:45)
[2023-08-28] MEDS ORDERED: TAMSULOSIN HCL 0.4 MG CAP PO PRN (12:45)
[2023-08-28] MEDS ORDERED: ALUMINUM/MAGNESIUM SUSP 30 ML UDC PO PRN (12:45)
[2023-08-28] MEDS ORDERED: oxyCODONE HCL IR 5 MG TAB (IMMEDIATE RELEASE) PO PRN (12:45)
[2023-08-28] MEDS ORDERED: METOCLOPRAMIDE HCL INJ 5 MG/ML 2 ML VIAL IV PRN (12:45)
[2023-08-28] MEDS ORDERED: bisacodyL 10 MG SUPP PR PRN (12:45)
[2023-08-28] MEDS: SODIUM CHLORIDE 0.9% 1,000 ML IV SCH (14:00)
--- NOTE | 2023-08-28 14:13 | XRay Report ---
SINGLE VIEW PELVIS CLINICAL HISTORY: Postoperative examination. FINDINGS: An AP portable supine view of the pelvis is compared to study dated 08/15/2023. The skeletal structures are osteopenic. A bipolar right hip arthroplasty is in near-anatomic alignment. A single c ortical lag screw transfixes the acetabular cup. No acute fracture is identified. There are expected postoperative changes overlying the right hip including subcutaneous gas and soft tissue swelling. A left hip arthroplasty is again noted. Surgical clips project over the left groin and a phlebolith is again seen in the left hemipelvis. IMPRESSION: Expected postoperative findings status post right hip arthroplasty. No acute fracture is seen. ACT 112: Negative or not required by law. Electronically signed by: Bay Bryan M.D. 08/28/2023 2:12 PM
[2023-08-28] MEDS: DICLOFENAC SODIUM 75 MG TABCR PO SCH (16:08)
[2023-08-28] MEDS: KETOROLAC TROMETHAMINE 15 MG/ML VIAL IV SCH (16:09)
[2023-08-28] MEDS: Scopolamine CHECK PATCH PLACEMENT SCH (16:30)
--- NOTE | 2023-08-28 17:39 | XRay Report ---
XR pelvis 1-2V routine CLINICAL HISTORY: Postoperative evaluation. COMPARISON: Pelvis radiograph performed earlier today. Pelvis radiograph August 15, 2023. FINDINGS: Alignment of the right hip total arthroplasty is anatomic. No periprosthetic fracture or u nexpected radiopaque foreign body. Left hip arthroplasty is noted. No acute fractures within the pelv is or hips. IMPRESSION: Expected findings following total right hip arthroplasty. ACT 112: Negative or not required by law. Electronically signed by: Stevan Barker M.D. 08/28/2023 5:37 PM
[2023-08-28] MEDS ORDERED: CeleBREX 200 MG CAP PO SCH (21:00)
[2023-08-28] MEDS: ROSUVASTATIN CALCIUM 5 MG TAB PO SCH (21:29)
[2023-08-28] MEDS: FINASTERIDE 5 MG TAB PO SCH (21:29)
[2023-08-28] MEDS: DOCUSATE SODIUM 100 MG CAP PO SCH (21:30)
[2023-08-28] MEDS: SENNA 8.6 MG TAB PO SCH (21:31)
[2023-08-28] MEDS: LOSARTAN POTASSIUM 25 MG TAB PO SCH (21:32)
[2023-08-29 07:07] LABS: Basophils # (auto) 0.02 K/uL (0.00-0.20); Basophils % (auto) 0.2 %; Eosinophils # (auto) 0.01 K/uL (0.00-0.50); Eosinophils % (auto) 0.1 %; Hematocrit (blood only) 40.5 % (42.0-52.0); Hemoglobin 13.9 g/dl (14.0-18.0); Immature Granulocytes # (auto) 0.03 K/uL (0.01-0.20); Immature Granulocytes % (auto) 0.3 %; Mean Corpuscular Hemoglobin 32.6 pg (25.0-34.0); Mean Corpuscular Hgb Conc 34.3 g/dL (32.0-36.0); Mean Corpuscular Volume 94.8 fL (80.0-100.0); Mean Platelet Volume 8.6 fL (9.4-12.4); Monocytes # (auto) 0.69 K/uL (0.11-0.59); Monocytes % (auto) 7.5 %; Neutrophils # (auto) 7.29 K/uL (1.40-6.50); Neutrophils % (auto) 79.9 %; Platelet Count 149 K/uL (130-400); RDW Standard Deviation 41.4 fL (36.4-46.3); Red Blood Count 4.27 M/uL (4.70-6.10); White Blood Count 9.14 K/ul (4.8-10.8)
[2023-08-29 07:26] LABS: BUN Creatinine Ratio 17.3 (10-20); Creatinine Clr Calc Pharmacy 73.8 ml/min; Est GFR (Non-African American) 68.1 ml/min; Potassium 4.2 mmol/L (3.5-5.1)
[2023-08-29] MEDS: dexAMETHasone 4 MG TAB PO SCH (07:54)
[2023-08-29] MEDS: ADVANCED PROBIOTIC 625 MG CAPSULE PO SCH (07:54)
[2023-08-29] MEDS: ASPIRIN 81 MG ECTAB PO SCH (07:54)
[2023-08-29] MEDS: MULTIVITAMIN TAB PO SCH (07:55)
[2023-08-29] MEDS: CEROVITE ADV FORMULA TAB PO SCH (07:55)
--- NOTE | 2023-08-29 09:07 | Orthopedic Progress Note ---
Date of Service August 29, 2023 Assessment & Plan (1) S/P total hip arthroplasty: Plan: PT/OT Weightbearing as tolerated with walker assistance Ice with easy wrap Keep Silverlon dressing in place until follow-up Abduction pillow use x 6 weeks DVT prophylaxis with SERGIO stockings and aspirin Pain control with p.o. medications as previously prescribed Follow-up at [facility] orthopedics as previously scheduled Plan is to discharge home later today with in-home physical therapy beginning tomorrow With questions contact our clinic at [phone] Admission and Anticipated Discharge Date Admission Date: August 28, 2023 Subjective This 68-year-old male is seen day 1 status post right total hip arthroplasty. Patient was initially scheduled as an outpatient total joint but did not pass PT/OT protocol yesterday and was admitted for a 23-hour observation. Patient states that he is doing well this morning. He is a little confused but states that this happens from time to time. States that it is hip really does not hurt. He denies chest pain, shortness of breath, fever, chills, sweats or numbness or tingling in his right lower extremity. States that he has been easily able to transition from his bed to a walker without issue. He has had no difficulty voiding. He denies nausea, vomiting or diarrhea. He states that he was contacted by a therapist from [facility] who is planning on coming to his home tomorrow to start in-home physical therapy. Review of Systems Review of Systems: All systems reviewed & are unremarkable except as noted in Subjective Physical Exam Physical Exam: Right hip: Outer dressing was removed. Silverlon is clean dry and intact and left in place. Patient is able to easily perform an active straight leg raise test. Quad strength is 4 out of 5. He has no issues actively dorsi or plantar flexing his foot. He tolerates logroll testing without referred pain. Passive hip flexion near 90 degrees causes no pain. He does feel a slight tugging sensation with light passive internal and external hip rotation. Patient is neurovascularly intact in the right lower extremity. Results & Data Vital Signs (Past 12 Hours) Vital Signs Temp Pulse Resp BP Pulse Ox O2 Del Method 08/29/23 07:14 36.9 C 69 18 139/84 97 Room Air 08/29/23 03:32 36.8 C 67 20 123/81 97 Room Air 08/28/23 23:16 36.7 C 66 18 110/69 96 Room Air Diagnostic Findings Laboratory Results WBC 9.14 K/ul (4.8-10.8) 08/29/23 06:40 RBC 4.27 M/uL (4.70-6.10) L 08/29/23 06:40 Hgb 13.9 g/dl (14.0-18.0) L 08/29/23 06:40 Hct 40.5 % (42.0-52.0) L 08/29/23 06:40 MCV 94.8 fL (80.0-100.0) 08/29/23 06:40 MCH 32.6 pg (25.0-34.0) 08/29/23 06:40 MCHC 34.3 g/dL (32.0-36.0) 08/29/23 06:40 RDW Std Deviation 41.4 fL (36.4-46.3) 08/29/23 06:40 RDW Coeff of Yoselyn 12.0 % (11.5-14.5) 08/29/23 06:40 Plt Count 149 K/uL (130-400) 08/29/23 06:40 MPV 8.6 fL (9.4-12.4) L 08/29/23 06:40 Immature Gran % (Auto) 0.3 % 08/29/23 06:40 Neut % (Auto) 79.9 % 08/29/23 06:40 Lymph % (Auto) 12.0 % 08/29/23 06:40 [place] % (Auto) 7.5 % 08/29/23 06:40 Eos % (Auto) 0.1 % 08/29/23 06:40 Baso % (Auto) 0.2 % 08/29/23 06:40 Neut # (Auto) 7.29 K/uL (1.40-6.50) H 08/29/23 06:40 Lymph # (Auto) 1.10 K/uL (1.20-3.40) L 08/29/23 06:40 [place] # (Auto) 0.69 K/uL (0.11-0.59) H 08/29/23 06:40 Eos # (Auto) 0.01 K/uL (0.00-0.50) 08/29/23 06:40 Baso # (Auto) 0.02 K/uL (0.00-0.20) 08/29/23 06:40 Immature Gran # (Auto) 0.03 K/uL (0.01-0.20) 08/29/23 06:40 Sodium 139 mmol/L (136-145) 08/29/23 06:40 Potassium 4.2 mmol/L (3.5-5.1) 08/29/23 06:40 Chloride 108 mmol/L (98-107) H 08/29/23 06:40 Carbon Dioxide 26 mmol/L (21-32) 08/29/23 06:40 Anion Gap 5 (3-11) 08/29/23 06:40 BUN 19 mg/dl (6-23) 08/29/23 06:40 Creatinine 1.10 mg/dl (0.6-1.4) 08/29/23 06:40 Est Cr Clr Drug Dosing 73.8 ml/min 08/29/23 06:40 Est GFR ( Amer) 79.0 ml/min 08/29/23 06:40 Est GFR (Non-Af Amer) 68.1 ml/min 08/29/23 06:40 BUN/Creatinine Ratio 17.3 (10-20) 08/29/23 06:40 Glucose 108 mg/dl (70-99(Fasting)) H 08/29/23 06:40 POC Glucose 142 mg/dl (70-99) H 08/28/23 20:35 Calcium 9.0 mg/dl (8.6-10.3) 08/29/23 06:40 Impressions Pelvis X-Ray 08/28/23 12:45 XR pelvis 1-2V routine CLINICAL HISTORY: Postoperative evaluation. COMPARISON: Pelvis radiograph performed earlier today. Pelvis radiograph August 15, 2023. FINDINGS: Alignment of the right hip total arthroplasty is anatomic. No periprosthetic fracture or unexpected radiopaque foreign body. Left hip ar throplasty is noted. No acute fractures within the pelvis or hips. IMPRESSION: Expected findings following total right hip arthroplasty. ACT 112: Negative or not required by law. Electronically signed by: Stevan Barker M.D. 08/28/2023 5:37 PM
--- NOTE | 2023-08-29 11:10 | Discharge Summary ---
Date of Service August 29, 2023 Admission HPI Per Admitting Provider Patient is a 68-year-old male who is a known patient Dr. Bales. He is here today for a preoperative history and physical examination for a right total hip arthroplasty with Dr. Bales as an outpatient. Surgery will be at [facility] and if medically stable post operatively he will be discharged the same day. He explains that he has had a history of right hip pain that is been ongoing for 4 years. He feels for the past 3-1/2 years the pain has progressively gotten worse. He also notes that he has a history of having a left total hip arthroplasty in May 2022 and feels the right hip was compensating for the left hip recovering. He states he did very well after his surgery for the left hip. He states the right hip pain is bothersome with increased walking. He states walking on uneven surfaces or uneven terrain seems to give him increased pain. He complains of difficulty getting in and out of a vehicle as well as the bed if the pain is terrible. He complains of difficulty sitting for period of time especially at football games because of the pain. He reports the pain is in his groin. He does note that he has a history of lumbar radiculopathy however he denies any paresthesia or pain down his leg at this time. He does complain of some weakness in the right leg and challenged with doing functional activities around the house because of the pain and weakness. He has had imaging taken of the right hip that revealed advanced osteoarthritis with decreased joint space dpym-os-lalu osteophytes and subchondral sclerosis. He has tried nyiz-tlj-[id number] analgesics activity modification and physical therapy without any lasting relief. He does report having an injection previously in his hip without lasting relief. Due to these findings after a lengthy course of conservative measures he will be taken to the OR for a right total hip arthroplasty. He denies any allergy to metal, MRSA infections, latex allergies, cardiac or pulmonary issues. He does have a history of having a complication with a wound healing after the hernia repair in 2021 prior to his left hip arthroplasty. He has recovered completely from this and there are no issues. Admission Exam Per Admitting Provider Vitals & Measurements T: 36.6 C HR: 84 (Monitored) BP: 140/86 SpO2: 96% HT: 179.5 cm WT: 96.6 kg WT: 96.600 kg (Dosing) BMI: 29.98 General: Pt is alert and oriented x3. No acute distress. Well-dressed, well- nourished . HEENT: Head: Atraumatic, normocephalic. Eyes: Extraocular movements intact. Pupils equal, round, and reactive to light. Sclerae are normal. Ears: bilateral hearing aids Nose: Nares are patent bilaterally. Throat: Oropharynx clear. Mucous membranes moist. Good dentition. Uvula midline. Neg for erythema Neck: Supple. No lymphadenopathy. Nontender to palpation. Full range of motion. Lungs: Clear to auscultation bilaterally. No adventitious sounds. No accessory muscle use. Heart: Regular rate and rhythm. Normal S1, S2. No murmurs, rubs, or gallops appreciated. Abdomen: Soft, nontender, nondistended. Normal bowel sounds heard in all 4 quadrants. Musculoskeletal: Skin is normal in color and temperature of her hip on the right. He has palpable tenderness in the right groin negative on the left. He is able to tolerate hip flexion to approximately 95 degrees before he starts to get pain in the groin. He is able to tolerate external rotation approximately 45 degrees internal rotation is limited to approximately 15 degrees due to pain. He has a positive Rocker sign on the right. There is a leg length discrepancy with the left leg shorter than the right. His sensation is intact over the right lower extremity over L3-L4-L5 and S1. Strength is 5 -/5 bilateral lower extremities. Gait is normal without assistive device. Integumentary:normal in color neg for abrasion or rash Neuro: Cranial nerves II-XII grossly intact Psychiatric: Good eye contact, normal mood and affect, cooperative during exam, nonsuicidal Principal Diagnosis Right hip osteoarthritis Discharge Exam Right hip: Outer dressing was removed. Silverlon is clean dry and intact and left in place. Patient is able to easily perform an active straight leg raise test. Quad strength is 4 out of 5. He has no issues actively dorsi or plantar flexing his foot. He tolerates logroll testing without referred pain. Passive hip flexion near 90 degrees causes no pain. He does feel a slight tugging sensation with light passive internal and external hip rotation. Patient is neurovascularly intact in the right lower extremity. Discharge Data Allergies Allergy/AdvReac Type Severity Reaction Status Date / Time Penicillins Allergy Unknown UNSURE OF Verified 08/07/23 11:31 REACTION Procedures Performed Operation Date: 08/28/23 07:00 Actual Procedures p Right Total Hip Arthroplasty - Nicholas Bales MD Hospital Course (1) S/P total hip arthroplasty: Patient had an uneventful overnight stay following total hip arthroplasty. Patient was scheduled to be an outpatient total joint but failed PT/OT protocol after the surgery. Patient did well with PT this morning he will be discharged home and begin in-home physical therapy with [facility] tomorrow morning. PT/OT Weightbearing as tolerated with walker assistance Ice with easy wrap Keep Silverlon dressing in place until follow-up Abduction pillow use x 6 weeks DVT prophylaxis with SERGIO stockings and aspirin Pain control with p.o. medications as previously prescribed Follow-up at [facility] [address] orthopedics as previously scheduled Plan is to discharge home later today with in-home physical therapy beginning tomorrow With questions contact our clinic at [phone] Total Time Total Time Spent Total Time Spent (In Minutes): 25 mins Discharge Plan Discharge Items Patient Disposition: Home - Home Health Services Reason For Visit: Right Hip Osteoarthritis Discharge Diagnosis: Right Hip Osteoarthritis Activity: As commented below Lifting: None Bathing: Keep incision dry Bathing Comment: May shower tomorrow Sexual Activity: Wait until after follow-up appointment Exercise/Sports: Wait until after follow-up appointment Driving/Machine Use: No driving until cleared by orthopedics specialist Weightbearing: Right weightbearing Weightbearing Comment: as tolerated with walker assistance Non-emergency contact: Surgeon Call non-emergency contact if: you have any medication questions, your pain is not controlled, your temperature is above 101.5 and your wound pain has increased Follow-up/Referrals: [facility] [Non-Staff] - (per [facility] office) Mesha Gonzales MD [Primary Care Provider] - Diet: Regular Addtl Attending Provider Instructions: Post-operative Instructions Dear Patient and Family/Friends, Before you are discharged from the hospital, it is important to know what to expect when you get home after surgery. To that end, we have created this sheet of discharge instructions which covers many commonly asked questions. Make sure you go through this sheet in its entirety with your nurse before you are discharged. Please note that we will go over the specifics of your surgery and recovery when you return for your first post-operative visit. Sincerely, Dr. Balse Medication Please take the medications that were prescribed to you at your preoperative visit Pain Expect to be in a fair amount of pain after surgery. Remember, our goal is not to eliminate your pain, but to make it tolerable. It is a good idea to stay ahead of your pain by taking the medications you were prescribed once you get home. Typically, the pain starts improving 3-7 days after surgery. You should start weaning off the narcotic pain medication (oxycodone, hydrocodone, hydromorphone, morphine) as soon as your pain improves. Please call our office if your pain is not adequately controlled. Ice Ice your operative site at least 5 times a day for 15-30 minutes at a time. Make sure you have a thin cloth between the ice or cooling unit and your skin to prevent williamson bite. This is especially important if you received a nerve block. Continue icing your operative site for the first 5-7 days after surgery, then as needed. Diet/Nausea/Vomiting Start by drinking clear liquids and eating crackers. If you can tolerate this, then you may resume your normal diet. If you feel nauseated or vomit, take Zofran/ondansetron (if prescribed). Please call our office if you have intractable nausea or vomiting, or, if after hours, you may go to the Emergency Room for help. Constipation Constipation is a common side effect of narcotic pain medication. If you have not had a bowel movement within 2 days after surgery, we recommend purchasing an over the counter laxative such as Milk of Magnesia, Dulcolax, or Miralax from a local pharmacy, and taking it as instructed. Call our clinic if any questions. Nerve block The anesthesia team sometimes places a nerve block to help with post-operative pain control. This results in significant numbness and inability to move the extremity. The nerve block usually wears off in 8-12 hours, but sometimes can last up to 24 hours. Please call our office if you are still unable to move your extremity after 24 hours, unless you received a pain pump to take home. Nerve blocks typically wear off quickly, so start taking pain medication as soon as you start feeling soreness near your surgical site. Weight bearing and Range of Motion. Do not bear any weight through your operative extremity immediately after surgery. If you had upper extremity surgery, do not lift anything with that arm. If you are in a knee brace, keep it locked in place until your follow-up. We will discuss your weight bearing, range of motion, and lifting restrictions in detail at your first post-operative appointment. Continuous Passive Motion (CPM) Machine If you were prescribed a CPM machine, it will start after your first post- operative appointment, at which time we will give you instructions on the range of motion settings and duration of treatment Physical therapy You should be set up with in-home physical therapy to begin this weekend. Wound care and showering We will inspect your wound at your first post-operative visit, and may do a dressing change at that time. Most patients will be in a water-proof dressing that is removed 14 days after surgery. It is normal to see some dried blood on the dressing. Do not remove your dressing, paper strips or sutures yourself unless you are given permission. Showering is allowed the day after surgery. Do not scrub or remove any dressings. The wound should not be submerged underwater (i.e. in a bathtub or pool) until 4 weeks after surgery SERGIO stockings If you were given white stockings, these are to be worn at all times except to shower (on both legs) for the first 2 weeks after surgery. Driving You may not drive while taking narcotic pain medication or while in a cast, sp lint, sling or brace. You, the patient, need to make the final determination about when you are safe to drive, however, the earliest you may consider driving after surgery is below: Hand/Wrist/Elbow Surgery: 3 days Shoulder Surgery: 2 weeks Hip,/Knee/Ankle Surgery: 4 weeks Fracture repair: 6 weeks Return to Work Your return to work depends on what surgery was done and what type of work you do. Please bring any paperwork your employer needs completed to your first post-operative visit. Also, bring a description of your job duties, as this helps us to understand what risks you may face at work. Travel Avoid long distance travel (greater than 1 hour) in airplanes and cars for the first 6 weeks after surgery. If you must travel, you need to have a Doppler ultrasound done before you travel to rule out a blood clot in your legs. Follow-up You should have a follow-up appointment already scheduled 1-2 days after surgery. If not, please contact our office to make this appointment before you leave the hospital. When to call the office It is normal to have swelling and bruising in the limb that was operated on. This will improve with time. It is also normal to have fevers for the first 2 days after surgery. Reasons you should call your doctor include: Uncontrolled pain; Nausea, vomiting, or constipation that does not improve with medication; Fevers over 101.5, chills, sweats; Drainage or bleeding from the wound; Foul odor; Spreading areas of redness; Any other concerns Pending Studies at Discharge: No Stand-Alone Forms: Anesthesia/Sedation, Adult, [facility] Medications and DC Order Prescriptions: Continued Spectravite Men 50 Plus 300-600-300 mcg tablet 1 tab PO QAM losartan [Cozaar] 50 mg tablet 25 mg PO PM finasteride [Proscar] 5 mg tablet 5 mg PO PM Probiotic 10 billion cell Capsule 10,000 mmu cells PO QAM oxycodone 5 mg tablet 5 mg PO Q4H Qty: 28 0RF Patient Comments: no longer taking 08/07/23 diclofenac sodium 75 mg tablet,delayed release (DR/EC) 75 mg PO BID 30 Days Qty: 60 1RF Patient Comments: has never taken per pt 08/07/23 rosuvastatin 5 mg Tablet 5 mg PO PM Krames/Other Patient Handouts: DVT Post Op Prevention Admission Data Admit Date/Time: 08/28/23 12:45 Attending Provider: Nicholas Bales Admit Provider: Nicholas Bales Primary Care Provider: Mesha Gonzales Other Providers: [facility],Home Health Other Interventions: Discharge Summary Assessment (RN) Last Done: 08/29/23 09:21
== END 2023-08-29 11:46 | disposition home health service (06) ==
LOC: 3E 05:00 → ASU 05:00

== ENCOUNTER 2024-12-15 17:47 | Inpatient (IN) ==
--- NOTE | 2024-12-15 18:17 | Emergency Department Note ---
Impression & Plan Pulmonary emboli, DVT (deep venous thrombosis), Right leg swelling ED Provider Note NAME: AMINATA SHERIFF AGE: 69 SEX: M : 1955 ARRIVES VIA: Walk-In INFORMANT: [Patient][family] ED PROVIDER(S): [Bay Hsu MD] CHIEF COMPLAINT: Leg injury, swelling HISTORY OF PRESENT ILLNESS: The patient is a 69-year-old male who has had swelling and discomfort with walking in the right leg for 2 weeks. This began after a 3-hour drive. The patient had an outpatient ultrasound that showed an extensive right lower extremity DVT. He was referred to the ER. The patient has never had a DVT or PE, the patient has not had any dyspnea or cough or fever. The patient did have some outpatient clotting workup ordered today, he was eventually referred to the ER. PMHx/PSHx/Social Hx: See Below PHYSICAL EXAM: GENERAL: Patient is in no acute distress. HEENT: No acute trauma, normocephalic atraumatic, mucous membranes moist, no nasal congestion. NECK: No stridor, no adenopathy, no meningismus, trachea is midline. LUNGS: Clear to auscultation bilaterally, no wheeze, no rhonchi, breath sounds equal. HEART: Without murmurs gallops or rubs, regular rate and rhythm. ABDOMEN: Soft, nontender, no peritonitis. EXTREMITIES: No cyanosis, full range of motion of all the joints without pain or difficulty. Patient has edema of the right lower extremity when compared to the left. NEUROLOGIC: Oriented x 3, no acute motor or sensory deficits, no focal weakness. SKIN: No jaundice, no diaphoresis. DIFFERENTIAL DIAGNOSIS: DVT, PE, renal failure, among others. EMERGENCY DEPARTMENT PROCEDURES: MEDICAL DECISION MAKING: There is no leukocytosis or concerning anemia. There is a normal platelet count. No coagulopathy. No renal failure or significant electrolyte abnormality. No concerning liver enzyme elevation. Chest CT shows multiple pulmonary emboli without heart strain or saddle embolus. Review of the outpatient ultrasound done earlier today does show an extensive right leg DVT. On exam, the patient did have right lower extremity swelling. He was not hypoxic or toxic. He denied being short of breath. Patient is in need of a hospital stay for his clotting. He requires IV heparin, monitoring and potentially further workup. The patient was ordered for a bolus of IV heparin, he was placed on a heparin drip. I spoke with the patient and family, the on-call hospitalist consult. Prior/Outside records/notes reviewed: None ECG per my interpretation: Indication was DVT. The ECG shows a sinus bradycardia with a rate of 56. There is no ST elevation, no PVCs. The QTc is 395. Continuous Cardiac Monitoring per my interpretation: An order was placed for continuous cardiac monitoring. The monitor shows a rate of 62 with normal sinus rhythm. Imaging/x-ray results per my interpretation: Chronic Medical/Social conditions affecting care: Advanced age. Care/Management discussed with: Case management, the on-call hospitalist. Level of care consideration(s): After review of the information above and other included data: --I believe the patient requires escalation of care to admission Critical Care Note: I have personally spent 36 minutes of critical care time in the direct management of this patient. This includes bedside care, interpretation of diagnostic studies, and testing, discussion with consultants, patient, and family members, and other required patient management activities. This 36 minutes is in excess of all separately billable procedures. DISPOSITION: Admission Past Med/Surg History Problem List (Updated 12/15/24 @ 23:21 by Bay Hsu MD) Right leg swelling (Acute) DVT (deep venous thrombosis) (Acute) Pulmonary emboli (Acute) Pulmonary embolism DVT (deep venous thrombosis) S/P total hip arthroplasty Osteoarthritis of left hip Cerumen impaction Surgical wound, non healing (Acute) Perirectal fistula Wound abscess Abscess of left groin History of colon polyps High cholesterol History of back problems Arthritis Osteoarthritis Left inguinal hernia Bilateral cataracts BPH (benign prostatic hyperplasia) Hyperlipemia Hypertension controlled, stable per pt Medical History Encounter for pre-operative examination Osteoarthritis Fluid collection at surgical site Pt underwent a laparoscopic left inguinal hernia repair with mesh on 06/21/21 that has been complicated by abscess formation. This was drained by radiology on 08/07 and cultures returned + for mycobacterium. He was hospitalized/given IV abx. I&D of left groin abscess done 08/16/21 (Grade 2 view, MAC#3, ETT 7.5 at [facility]) Hearing deficit Surgical History History of total hip arthroplasty History of colonoscopy (05/09/22) History of surgery (09/25/21) History of incision and drainage (08/16/21) S/P left inguinal hernia repair (06/21/21) History of esophagogastroduodenoscopy (EGD) H/O tooth extraction H/O shoulder surgery Hx of colonoscopy with polypectomy H/O hand surgery Hx of cataract surgery H/O right knee surgery Family History Father Hypertension Other Hearing loss No family history of adverse response to anesthesia No family history of bleeding disorder Social History Smoking Status: Former smoker Tobacco Type: Cigarettes packs per day: 0.5; Smoking End Date: 20 years ago; Second Hand Exposure: No; Do You Dip or Chew Tobacco: No; Hx Alcohol Use: Yes Alcohol type: beer Alcohol Intake Frequency: 2-3 x/Week Hx Substance Use: No Preferred Language: Azerbaijani Communication Ability: Effective Visual Impairment: Limited Hearing Ability: Use of Hearing Aid Help Desk Operator Required: No Beliefs That Will Affect Care: None marital status: Current Living Situation: Spouse current occupational status: retired Other Information That Helps Us Care for You: No Feels Safe at Home: Yes Safety Concerns: Feels Safe At This Time Diet: ideal protein caffeine: No during the past year weight has: decreased > 10 lbs Assistive Devices: Glasses and Hearing Aid - Bilateral Allergies Allergies Allergy/AdvReac Type Severity Reaction Status Date / Time Penicillins Allergy Unknown UNSURE OF Verified 12/15/24 19:40 REACTION Home Meds Home Medications Medication Instructions Recorded Confirmed finasteride 5 mg tablet (Proscar) 5 mg PO PM 02/09/21 12/15/24 losartan 50 mg tablet (Cozaar) 25 mg PO PM 02/09/21 12/15/24 [id number] 300 mcg-K 60 1 tab PO QAM 04/23/21 12/15/24 mcg-lycop 600 mcg-lutein 300 mcg tablet (Spectravite Men 50 Plus) Lactobacillus acidophilus 10 10,000 mmu cells PO QAM 04/30/22 12/15/24 billion cell capsule (Probiotic) rosuvastatin 5 mg tablet 5 mg PO PM 08/07/23 12/15/24 donepezil 5 mg tablet 5 mg PO HS 12/09/24 12/15/24 Results & Data (ED) Vital Signs Vital Signs - 24 hr 12/15/24 17:50 12/15/24 18:54 12/15/24 19:12 Temperature 36.8 C Temperature Source Temporal Artery Scan Pulse Rate 62 66 62 Pulse Rate [Apical] Pulse Rate from SpO2 Sensor 64 Respiratory Rate 17 21 Respiratory Effort / Characteristics Non-Labored Spontaneous Respiratory Depth Normal Blood Pressure 138/87 154/104 H Blood Pressure Mean 104 120 Pulse Oximetry 99 100 Oxygen Delivery Method Room Air Room Air Sepsis Recent Fever Within 48 Hours No Sepsis New/Unexplained Change in Mental Status No Sepsis Action Taken by Nursing No Action Required 12/15/24 20:03 12/15/24 20:43 Temperature Temperature Source Pulse Rate 52 L Pulse Rate [Apical] 53 L Pulse Rate from SpO2 Sensor 50 L Respiratory Rate 12 18 Respiratory Effort / Characteristics Non-Labored Spontaneous Respiratory Depth Normal Blood Pressure 120/80 Blood Pressure Mean 93 Pulse Oximetry 98 98 Oxygen Delivery Method Room Air Room Air Sepsis Recent Fever Within 48 Hours Sepsis New/Unexplained Change in Mental Status Sepsis Action Taken by Intermediate Medications Current Medication List: was personally reviewed by me Laboratory Data Attestation: I reviewed the patient's lab results. 12/15/24 18:15 12/15/24 18:15 Lab Results 12/15/24 Range/Units 18:15 WBC 5.52 (4.8-10.8) K/ul RBC 4.67 L (4.70-6.10) M/uL Hgb 15.2 (14.0-18.0) g/dl Hct 44.2 (42.0-52.0) % MCV 94.6 (80.0-100.0) fL MCH 32.5 (25.0-34.0) pg MCHC 34.4 (32.0-36.0) g/dL RDW Std Deviation 42.8 (36.4-46.3) fL RDW Coeff of Yoselyn 12.3 (11.5-14.5) % Plt Count 131 (130-400) K/uL MPV 8.7 L (9.4-12.4) fL PT 11.2 (9.0-12.0) Seconds INR 1.0 (0.9-1.1) APTT 26 (21-31) Seconds PTT Ratio 1.0 Sodium 141 (136-145) mmol/L Potassium 4.0 (3.5-5.1) mmol/L Chloride 108 H (98-107) mmol/L Carbon Dioxide 28 (21-32) mmol/L Anion Gap 5 (3-11) BUN 18 (6-23) mg/dl Creatinine 1.22 (0.6-1.4) mg/dl Est Cr Clr Drug Dosing 66.0 ml/min eGFR 63.78 BUN/Creatinine Ratio 14.8 (10-20) Glucose 78 (70-99(Fasting)) mg/dl Calcium 8.7 (8.6-10.3) mg/dl Total Bilirubin 0.4 (0.2-1.0) mg/dl AST 22 (13-39) U/L ALT 22 (7-52) U/L Alkaline Phosphatase 68 (34-104) U/L Total Protein 6.6 (6.0-8.3) gm/dl Albumin 4.2 (3.4-5.0) gm/dl Globulin 2.4 L (2.5-4.0) gm/dl Albumin/Globulin Ratio 1.8 (0.9-2) Administered Medications Donepezil HCl (Donepezil Hcl 5 Mg Tab) 5 mg PO HS AYLA Stop: 01/14/25 22:16 Last Admin: 12/15/24 22:58 Dose: 5 mg Documented By: ADAM Finasteride (Finasteride 5 Mg Tab) 5 mg PO PM AYLA Stop: 01/14/25 22:16 Last Admin: 12/15/24 22:58 Dose: 5 mg Documented By: ADAM Heparin Sodium/Dextrose (Heparin 73195 Unit/500 Ml D5w) 25,000 units in 500 mls @ 30 mls/hr IV .[id number] AYLA; Protocol Stop: 01/14/25 19:44 Last Admin: 12/15/24 20:11 Dose: 1,500 units/hr, 30 mls/hr Documented By: MARICRUZ Co-signed By: GIOVANNY Losartan Potassium (Losartan Potassium 25 Mg Tab) 25 mg PO PM AYLA Stop: 01/14/25 22:16 Last Admin: 12/15/24 22:58 Dose: 25 mg Documented By: ADAM Rosuvastatin Calcium (Rosuvastatin Calcium 5 Mg Tab) 5 mg PO PM AYLA Stop: 01/14/25 22:16 Last Admin: 12/15/24 22:58 Dose: 5 mg Documented By: ADAM Discontinued Medications Heparin Sodium (Porcine) (Heparin Sod (Porcine) 1000 Unit/Ml) 1 units IV NOW ONE Stop: 12/15/24 19:45 Last Admin: 12/15/24 20:10 Dose: 7,000 units Documented By: MARICRUZ Co-signed By: GIOVANNY Heparin Sodium/Dextrose (Heparin Iv Adult Wt-Based Standard W/ Initial Bolus Protocol) 1 each IV NOW STA; Protocol Stop: 12/15/24 19:30 Last Admin: 12/15/24 20:06 Dose: Not Given Documented By: MARICRUZ Ioversol (Optiray 320 125ml) 118 ml IV ONCE ONE Stop: 12/15/24 19:03 Last Admin: 12/15/24 19:03 Dose: 118 ml Documented By: GES Imaging Data Radiologist's Impression: Chest CTA 12/15/24 18:12 CT pulmonary angiogram with IV contrast History: Chest pain COMPARISON: None TECHNIQUE: CT angiography of the chest was performed without IV contrast followed by IV contrast, including 3D post processing CTA image reconstruction. Dose reduction techniques were achieved by using automatic exposure control and/or adjustment of mA and/or kV according to patient size and/or use of iterative reconstruction technique. FINDINGS: Diagnostic quality: Adequate Numerous emboli, 3 primarily throughout the right upper and lower lung involving the segmental and subsegmental arteries. Mild scattered emboli throughout the subsegmental arteries of the left lower lobe. RV/LV ratio is within normal limits at approximately 1.13. Moderate coronary calcification. There is no pericardial effusion. There are no abnormally enlarged hilar or mediastinal lymph nodes. The central tracheobronchial tree is clear. The lungs are clear. There is no pleural effusion. Limited visualized upper abdomen. No destructive osseous changes are seen. IMPRESSION: Extensive segmental and subsegmental pulmonary emboli, right greater than left. No evidence for significant right heart strain. Findings discussed with Dr. Hsu by Dr. Wilder at 7:29 PM, 12/15/2024 Electronically signed by Rafy Wilder 12-15-2024 7:30 PM [place], [place] [phone] Ultrasound Report Patient: AMINATA SHERIFF Admit Date: 12/15/24 MR#: [id number] Address1: [address] Acct ID:[id number] Address2: Date: 1955 [facility] Zip: [place] [address] Age: 69 Location: 1 Sex: M Room/Bed: Att Phy: Sophie Jett CRNP Diagnosis: M79.604 DVT Sindi Phy: PCP,NO Service Date: 12/15/24 Fam Phy: Interpreting Phy: Stevan Barker MDAdmit Phy: Ordering Phy: Sophie Jett CRNP cc: ~ ADDENDUM Addendum: Upon further review, note is also made of deep venous thrombus within the right anterior tibial, posterior tibial and peroneal veins. Electronically signed by: Stevan Barker M.D. 12/15/2024 3:00 PM ADDENDUM END RIGHT LOWER EXTREMITY VENOUS DOPPLER CLINICAL HISTORY: M79.604 DVT COMPARISON STUDY: Right lower extremity venous Doppler ultrasound November 02, 2023. TECHNIQUE: Sonography of the deep venous system of the right lower extremity was performed. Compression and augmentation were evaluated. FINDINGS: There is deep venous thrombus within the right femoral and popliteal veins. This is new since ultrasound of November 02, 2023. There is no deep venous thrombus within the right calf veins. IMPRESSION: Deep venous thrombus within the right femoral and popliteal veins. This finding will be called/faxed to the ordering provider at time of dictation. ACT 112: Negative or not required by law. Electronically signed by: Stevan Barker M.D. 12/15/2024 2:42 PM Discharge Plan Visit Data Chief Complaint: Leg Injury/Pain Stated Complaint: BLOOD CLOT RIGHT LEG ED Provider: Bay Hsu Discharge Problem: Pulmonary emboli, DVT (deep venous thrombosis), Right leg swelling Patient Disposition: Admitted As Inpatient Condition: Serious Discharge Instructions Interventions: ED Discharge Assessment Last Done: 12/15/24 21:56 Discharge Problem: Pulmonary emboli Qualifiers: Pulmonary embolism type: unspecified Chronicity: acute Acute cor pulmonale presence: without acute cor pulmonale Qualified Code(s): I26.99 - Other pulmonary embolism without acute cor pulmonale DVT (deep venous thrombosis) Qualifiers: DVT location: lower extremity Affected thrombotic vein of extremity: u nspecified vein of extremity Chronicity: acute Laterality: right Qualified Code(s): I82.401 - Acute embolism and thrombosis of unspecified deep veins of right lower extremity
[2024-12-15 18:28] LABS: Hematocrit (blood only) 44.2 % (42.0-52.0); Hemoglobin 15.2 g/dl (14.0-18.0); Mean Corpuscular Hemoglobin 32.5 pg (25.0-34.0); Mean Corpuscular Volume 94.6 fL (80.0-100.0); Platelet Count 131 K/uL (130-400); RDW Standard Deviation 42.8 fL (36.4-46.3); Red Blood Count 4.67 M/uL (4.70-6.10); White Blood Count 5.52 K/ul (4.8-10.8)
[2024-12-15 18:47] LABS: Alanine Aminotransferase 22.0 U/L (7-52); Albumin Globulin Ratio 1.8 (0.9-2); Alkaline Phosphatase 68.0 U/L (34-104); Anion Gap 5.0 (3-11); Bilirubin,Total 0.4 mg/dl (0.2-1.0); Blood Urea Nitrogen 18.0 mg/dl (6-23); Calcium 8.7 mg/dl (8.6-10.3); Carbon Dioxide 28.0 mmol/L (21-32); Chloride 108.0 mmol/L (98-107); Creatinine Clr Calc Pharmacy 66.0 ml/min; Globulin 2.4 gm/dl (2.5-4.0); Glucose 78.0 mg/dl (70-99(Fasting)); Potassium 4.0 mmol/L (3.5-5.1); Sodium 141.0 mmol/L (136-145); Total Protein 6.6 gm/dl (6.0-8.3)
[2024-12-15 19:01] LABS: INR 1.0 (0.9-1.1); Partial Thromboplastin Time 26 Seconds (21-31); Prothrombin Time 11.2 Seconds (9.0-12.0)
[2024-12-15] MEDS: OPTIRAY 320 125ml IV ONE (19:03)
--- NOTE | 2024-12-15 19:30 | CT Scan Report ---
CT pulmonary angiogram with IV contrast History: Chest pain COMPARISON: None TECHNIQUE: CT angiography of the chest was performed without IV contrast followed by IV contrast, including 3D post processing CTA image reconstruction. Dose reduction techniques were achieved by using automatic exposure control and/or adjustment of mA and/or kV according to patient size and/or use of iterative reconstruction technique. FINDINGS: Diagnostic quality: Adequate Numerous emboli, 3 primarily throughout the right upper and lower lung involving the segmental and subsegmental arteries. Mild scattered emboli throughout the subsegmental arteries of the left lower lobe. RV/LV ratio is within normal limits at approximately 1.13. Moderate coronary calcification. There is no pericardial effusion. There are no abnormally enlarged hilar or mediastinal lymph nodes. The central tracheobronchial tree is clear. The lungs are clear. There is no pleural effusion. Limited visualized upper abdomen. No destructive osseous changes are seen. IMPRESSION: Extensive segmental and subsegmental pulmonary emboli, right greater than left. No evidence for significant right heart strain. Findings discussed with Dr. Hsu by Dr. Wilder at 7:29 PM, 12/15/2024 Electronically signed by Rafy Wilder 12-15-2024 7:30 PM
[2024-12-15] MEDS: Heparin IV Adult Wt-Based Standard w/ INITIAL Bolus Protocol IV STA (20:06)
[2024-12-15] MEDS: HEPARIN SOD (PORCINE) 1000 UNIT/ML IV ONE (20:10)
[2024-12-15] MEDS: HEPARIN 25000 UNIT/500 ML D5W 25,000 UNITS/500 ML BAG IV SCH (20:11)
--- NOTE | 2024-12-15 21:02 | History & Physical Report ---
Date of Service December 15, 2024 Assessment & Plan (1) DVT (deep venous thrombosis): (2) Pulmonary embolism: Plan 69 yo with no PMH Hypertension, hyperlipidemia, Moderate cognitive sent by PCP due to extensive DVT, referred by PCP. Patient found with segmental and documental PE as well at the ED. Patient states developing right leg pain and swelling 3 weeks ago and after a [address] Patient denied any SOB, chest pain or palpitations. Patient only complains of right lower extremity worse with ambulation. Denied any chest pain, SOB, palpitations. Denied any history of blood clots. Denied any history of cancer. Patient placed on heparin drip on ED. We will admit patient for further monitoring #DVT/ Extensive PE - Provoked - CTA: Extensive segmental and subsegmental pulmonary emboli, right greater than left.No evidence for significant right heart strain. - Doppler- deep venous thrombus within the right anterior tibial, posterior tibial and peroneal veins. Deep venous thrombus within the right femoral and popliteal veins. - Patient placed on Heparin drip by Ed provider - Hemodynamically stable, on room air, non tachycardia - Echocardiogram ordered to asses for right heart strain - Shock index: 0.4, low risk. PE-SARD: 0. PESI: low risk - Continue heparin drip - May transition to DOAC tomorrow if patient remain hemodynamically stable - Labs am Chronic problems stable: - HTN- continue losartan - BPH- Finasteride 5 mg - Moderate cognitive: Donepezil DVT prophylaxis: Heparin drip Disposition: PCU History of Present Illness Primary Care Provider: NO PCP 69 yo with no PMH Hypertension, hyperlipidemia, Moderate cognitive sent by PCP due to extensive DVT, referred by PCP. Patient found with segmental and docu mental PE as well at the ED. Patient states developing right leg pain and swelling 3 weeks ago and after a [address] Patient denied any SOB, chest pain or palpitations. Patient only complains of right lower extremity. Denied any chest pain, SOB, palpitations. Denied any abdominal pain, nausea or vomiting. Denied any history of blood clots. Denied any history of cancer Allergies Allergy/AdvReac Type Severity Reaction Status Date / Time Penicillins Allergy Unknown UNSURE OF Verified 12/15/24 19:40 REACTION Home Medications Medication Instructions Recorded Confirmed Type finasteride 5 mg tablet (Proscar) 5 mg PO PM 02/09/21 12/15/24 History losartan 50 mg tablet (Cozaar) 25 mg PO PM 02/09/21 12/15/24 History xjbnujnw-da-wnwoa 300 mcg-K 60 1 tab PO QAM 04/23/21 12/15/24 History mcg-lycop 600 mcg-lutein 300 mcg tablet (Spectravite Men 50 Plus) Lactobacillus acidophilus 10 10,000 mmu cells PO QAM 04/30/22 12/15/24 History billion cell capsule (Probiotic) rosuvastatin 5 mg tablet 5 mg PO PM 08/07/23 12/15/24 History donepezil 5 mg tablet 5 mg PO HS 12/09/24 12/15/24 History Past Med/Surg History Problem List (Updated 12/15/24 @ 23:21 by Bay Hsu MD) Right leg swelling (Acute) DVT (deep venous thrombosis) (Acute) Pulmonary emboli (Acute) Pulmonary embolism DVT (deep venous thrombosis) S/P total hip arthroplasty Osteoarthritis of left hip Cerumen impaction Surgical wound, non healing (Acute) Perirectal fistula Wound abscess Abscess of left groin History of colon polyps High cholesterol History of back problems Arthritis Osteoarthritis Left inguinal hernia Bilateral cataracts BPH (benign prostatic hyperplasia) Hyperlipemia Hypertension controlled, stable per pt Medical History Encounter for pre-operative examination Osteoarthritis Fluid collection at surgical site Pt underwent a laparoscopic left inguinal hernia repair with mesh on 06/21/21 that has been complicated by abscess formation. This was drained by radiology on 08/07 and cultures returned + for mycobacterium. He was hospitalized/given IV abx. I&D of left groin abscess done 08/16/21 (Grade 2 view, MAC#3, ETT 7.5 at [facility]) Hearing deficit Surgical History History of total hip arthroplasty History of colonoscopy (05/09/22) History of surgery (09/25/21) History of incision and drainage (08/16/21) S/P left inguinal hernia repair (06/21/21) History of esophagogastroduodenoscopy (EGD) H/O tooth extraction H/O shoulder surgery Hx of colonoscopy with polypectomy H/O hand surgery Hx of cataract surgery H/O right knee surgery Family History Father Hypertension Other Hearing loss No family history of adverse response to anesthesia No family history of bleeding disorder Social History Smoking Status: Former smoker Tobacco Type: Cigarettes packs per day: 0.5; Smoking End Date: 20 years ago; Second Hand Exposure: No; Do You Dip or Chew Tobacco: No; Hx Alcohol Use: Yes Alcohol type: beer Alcohol Intake Frequency: 2-3 x/Week Hx Substance Use: No Preferred Language: Omani Communication Ability: Effective Visual Impairment: Limited Hearing Ability: Use of Hearing Aid Motel Manager Required: No Beliefs That Will Affect Care: None marital status: Current Living Situation: Spouse current occupational status: retired Other Information That Helps Us Care for You: No Feels Safe at Home: Yes Safety Concerns: Feels Safe At This Time Diet: ideal protein caffeine: No during the past year weight has: decreased > 10 lbs Assistive Devices: Glasses and Hearing Aid - Bilateral Review of Systems Review of Systems: as per HPI Physical Exam Constitutional: WD/WN, vitals as above ENMT: external ear and nose normal, oropharynx normal Respiratory: normal respiratory effort, lungs clear to auscultation Cardiovascular: RRR, no murmur, no edema Gastrointestinal (Abdomen): normal bowel sounds, soft, nontender, no hepatosplenomegaly Musculoskeletal: no cyanosis or clubbing, extremities motor strength 5/5 Skin: no rashes, warm and dry Results & Data Results & Data Vital Signs (Past 12 Hours) Vital Signs Temp Pulse Resp BP Pulse Ox O2 Del Method 12/15/24 20:03 52 L 12 120/80 98 Room Air 12/15/24 19:12 62 21 154/104 H 100 Room Air 12/15/24 18:54 66 12/15/24 17:50 36.8 C 62 17 138/87 99 Room Air Supervising Physician Co-Signing Physician Notes Patient seen and examined, chart reviewed, case discussed with Dr. Leonardo Trujillo and I agree with the assessment and plan as above. Patient found with extensive segmental and subsegmental pulmonary emboli, right greater than left. Also with significant right DVT. Provoked after a long car ride. No personal or family history of VTE. Patient presently denies chest pain, pleuritic pain, cough, shortness of breath or dizziness Physical exam with warmth, redness and swelling of right lower extremity to slightly above the knee Remainder of exam is unremarkable Labs and images reviewed Assessment/plan Provoked DVT, extensive PE. Patient hemodynamically stable, adequate oxygenation on room air. Will check echo in the morning Continue anticoagulation with heparin drip overnight and initiate DOAC in the morning Remainder as above Resident Activity Tracking Resident Involvement: Resident Care Provided Care Provided: Adult [facility]
[2024-12-15] MEDS ORDERED: ONDANSETRON INJ 2 MG/ML 2 ML VIAL IV PRN (22:17)
[2024-12-15] MEDS ORDERED: MELATONIN 3 MG TAB PO PRN (22:17)
[2024-12-15] MEDS: FINASTERIDE 5 MG TAB PO SCH (22:58)
[2024-12-15] MEDS: ROSUVASTATIN CALCIUM 5 MG TAB PO SCH (22:58)
[2024-12-15] MEDS: DONEPEZIL HCL 5 MG TAB PO SCH (22:58)
[2024-12-15] MEDS: LOSARTAN POTASSIUM 25 MG TAB PO SCH (22:58)
[2024-12-16 03:02] LABS: ANTI-Xa, UFH(UnfractionatedHep 1.37 IU/ml (0.3-0.7)
--- NOTE | 2024-12-16 03:54 | Billing Data ---
Date of Service December 15, 2024 Coding Level of Care Code 40984 INT INP/OBS CARE
[2024-12-16 04:12] LABS: Hematocrit (blood only) 42.6 % (42.0-52.0); Hemoglobin 14.6 g/dl (14.0-18.0); Immature Granulocytes # (auto) 0.01 K/uL (0.01-0.20); Immature Granulocytes % (auto) 0.2 %; Mean Corpuscular Hemoglobin 32.9 pg (25.0-34.0); Mean Corpuscular Volume 95.9 fL (80.0-100.0); Platelet Count 113 K/uL (130-400); RDW Standard Deviation 42.1 fL (36.4-46.3); Red Blood Count 4.44 M/uL (4.70-6.10); White Blood Count 5.18 K/ul (4.8-10.8)
[2024-12-16 04:27] LABS: Anion Gap 4.0 (3-11); Blood Urea Nitrogen 13.0 mg/dl (6-23); Calcium 8.4 mg/dl (8.6-10.3); Carbon Dioxide 27.0 mmol/L (21-32); Chloride 108.0 mmol/L (98-107); Creatinine Clr Calc Pharmacy 68.9 ml/min; Glucose 111.0 mg/dl (70-99(Fasting)); Potassium 4.0 mmol/L (3.5-5.1); Sodium 139.0 mmol/L (136-145)
[2024-12-16 04:49] LABS: ANTI-Xa, UFH(UnfractionatedHep 0.98 IU/ml (0.3-0.7)
[2024-12-16 04:58] LABS: INR 1.1 (0.9-1.1); Prothrombin Time 11.8 Seconds (9.0-12.0)
[2024-12-16 05:16] LABS: Partial Thromboplastin Time 117 Seconds (21-31)
[2024-12-16 08:22] VITALS: RESP 18
[2024-12-16] MEDS ORDERED: MV MIN FOLIC K1 LYCOPEN LUTEIN PO SCH (09:00)
[2024-12-16] MEDS ORDERED: NON-FORMULARY MEDICATION (Lactobacillus Acidophilus [Probiotic] 10 billion cell Capsule) PO SCH (09:00)
[2024-12-16] MEDS ORDERED: [UNRECOGNIZED DRUG - OTHER] PO SCH (09:00)
[2024-12-16 11:10] VITALS: TEMP 97.9
[2024-12-16 12:27] LABS: ANTI-Xa, UFH(UnfractionatedHep 0.67 IU/ml (0.3-0.7)
--- NOTE | 2024-12-16 13:00 | XCELERA ---
[id number]
[2024-12-16] MEDS: OPTIRAY 320 125ml IV ONE (13:41)
--- NOTE | 2024-12-16 13:46 | CT Scan Report ---
CT SCAN OF THE BRAIN WITHOUT IV CONTRAST CLINICAL HISTORY: Weakness. Confusion. Possible stroke. COMPARISON STUDY: Head CT March 01, 2022. MRI of the brain April 05, 2024. TECHNIQUE: Unenhanced axial CT scan of the brain was performed from the vertex to the skull base. A dose lowering technique was utilized adhering to the principles of ALARA. CT DOSE: 625.8 mGy.cm FINDINGS: Brain parenchyma: No acute intracranial hemorrhage, midline shift or mass effect is present. Tran-whi te matter differentiation is preserved. There are no extra-axial fluid collections. There are no find ings to suggest acute dural sinus thrombosis or acute territorial infarct. Ventricles, sulci, cisterns: There is no hydrocephalus. The basal cisterns are patent. Calvarium: Unremarkable. Sinuses and mastoids: The visualized paranasal sinuses are clear. The mastoid air cells are well pneu matized. Orbits: The bony orbits are grossly intact. IMPRESSION: No acute intracranial findings. ACT 112: Negative or not required by law. Electronically signed by: Stevan Barker M.D. 12/16/2024 1:45 PM
--- NOTE | 2024-12-16 14:17 | CT Scan Report ---
CT angio head w con CLINICAL HISTORY: 69 years-old Male with Rule out Stroke. Acute stroke like symptoms COMPARISON STUDY: Head CT of same day, brain MRI 04/05/2024 TECHNIQUE: Following the IV administration of 120 cc of Optiray, CT angiogram of the brain was perfor med from the skull base to the vertex. Images are reviewed in the axial, sagittal, and coronal planes . 3-D MIPS images are created and assessed. IV contrast was administered without complication. All me asurements were obtained according to NASCET criteria. A dose lowering technique was utilized adherin g to the principles of ALARA. CT DOSE: 486.73 mGy.cm FINDINGS: CT BRAIN: Dictated separately. 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 Prior bi lateral lens repair. Involutional changes. CT ANGIOGRAM OF THE BRAIN: The imaged bilateral internal carotid arteries are patent. The bilateral anterior and middle cerebral arteries are also patent. The vertebrobasilar system and posterior cerebral arteries are widely youngblood nt. origin of the right posterior cerebral artery. There is no aneurysm, high-grade stenosis, o r proximal branch occlusion identified. Dural sinuses appear patent. IMPRESSION: Unremarkable CTA of the head. ACT 112: Negative or not required by law. The above report was generated using voice recognition software. It may contain grammatical, syntax o r spelling errors. Electronically signed by: Ralph Reyna M.D. 12/16/2024 2:14 PM
--- NOTE | 2024-12-16 14:26 | CT Scan Report ---
CT ANGIOGRAPHY OF THE NECK WITH CONTRAST CLINICAL HISTORY: Stroke alert. COMPARISON STUDY: No previous studies for comparison. Technique: CT angiography of the carotid and vertebral arteries was obtained using Optiray and 3D rec onstruction on an independent workstation. NASCET criteria was utilized. Automated exposure control was utilized for the study. A dose lowering technique was utilized adhering to the principles of ALA RA. Findings: Visualized portions of the lung apices are unremarkable. There is no cervical lymphadenopat hy. There are no acute cervical spine fractures. There is extensive calcified bilateral carotid plaqu e within the distal right common carotid artery. The vessel measures 1.4 mm at site of narrowing and 6.4 mm proximally. There is no stenosis within the cervical right internal carotid artery. There is m oderate plaque within the left carotid bifurcation without stenosis. Vertebral arteries are patent. N o aneurysm or dissection within the neck. CTA of the head will be reported separately. IMPRESSION: 1. 80% stenosis of the distal right common carotid artery due to extensive calcified atherosclerotic plaque. 2. No additional significant stenoses within the neck. ACT 112: Negative or not required by law. Electronically signed by: Stevan Barker M.D. 12/16/2024 2:24 PM
--- NOTE | 2024-12-16 14:28 | Hospitalist Progress Note ---
Date of Service December 16, 2024 Assessment & Plan (1) DVT (deep venous thrombosis): (2) Pulmonary embolism: Plan 69 yo with no PMH Hypertension, hyperlipidemia, Moderate cognitive sent by PCP due to extensive DVT, referred by PCP. Patient found with segmental and documental PE as well at the ED. Patient states developing right leg pain and swelling 3 weeks ago and after a [address] Patient denied any SOB, chest pain or palpitations. Patient only complains of right lower extremity worse with ambulation. Denied any chest pain, SOB, palpitations. Denied any history of blood clots. Denied any history of cancer. Patient placed on heparin drip on ED. We will admit patient for further monitoring Stroke Alert Patient's stated that at around 12:30pm 12/16/24 is when she noticed that something was wrong with the patient. Patient said to his that he "didnt feel right" and felt dizzy whenever he moved his head to the left, and also had blurry vision. The stroke alert was called at 1:30pm. During the alert an extensive neuro exam was done which was unremarkable. No facial droop or slurred speech was present. At about 2:00pm symptoms resolved and patient had no more blurry vision. #Possible Stroke - Last known normal was at 12:30pm 12/16/24. - CTA of head and neck ordered. CTA of neck showed 80% stenosis of distal right common carotid due to extensive calcified atherosclerotic plaque. Otherwise unre markable. - CT of head ordered. No acute intracranial findings was found. - Consulted neurology via telestroke. Neurology suggested MRI of the brain. - MRI of the brain ordered. - Continue with heparin drip - Order aspirin #DVT/ Extensive PE - Provoked - CTA: Extensive segmental and subsegmental pulmonary emboli, right greater than left.No evidence for significant right heart strain. - Doppler- deep venous thrombus within the right anterior tibial, posterior tibial and peroneal veins. Deep venous thrombus within the right femoral and popliteal veins. - Patient placed on Heparin drip by Ed provider - Hemodynamically stable, on room air, non tachycardia - Echocardiogram ordered - Shock index: 0.4, low risk. PE-SARD: 0. PESI: low risk - Continue heparin drip - May transition to DOAC tomorrow if patient remain hemodynamically stable - Labs am Chronic problems stable: - HTN- continue losartan - BPH- Finasteride 5 mg - Moderate cognitive: Donepezil DVT prophylaxis: Heparin drip Disposition: PCU Admission and Anticipated Discharge Date Admission Date: December 15, 2024 Subjective Patient was admitted into the ER due to swollen right leg and right leg pain. Patient reports that he drove for 3 hours to his mother's house without stopping. He also did some chair exercises with his mother and felt like he hurt the underside of his leg when sitting on the chair. He then drove back home for 3 hours without stopping. Patient this morning was stable and feeling good this morning. Was planning on discharging patient this afternoon until a stroke alert was called. Stroke Alert Patient's stated that at around 12:30pm is when she noticed that something was wrong with the patient. Patient said to his that he "didnt feel right" and felt dizzy whenever he moved his head to the left, and also had blurry vision. The stroke alert was called at 1:30pm. During the alert an extensive neuro exam was done which was unremarkable. No facial droop or slurred speech was present. At about 2:00pm symptoms resolved and patient had no more blurry vision. Review of Systems Review of Systems: per subjective HPI Physical Exam Constitutional: WD/WN, vitals as above Respiratory: normal respiratory effort, lungs clear to auscultation Cardiovascular: RRR, no murmur, no edema Extremities: + calf tenderness (was tender in lower R. calf ) and + edema (R. Leg swollen.) Musculoskeletal: Extremities: strength 5/5 throughout Neurologic: Cranial Nerves: EOM intact bilaterally, tongue midline and no nystagmus CN 3, 4, 5, 6, 7, 11, 12 grossly intact. No facial droop or slurred speech. Results & Data Results & Data Vital Signs (Past 12 Hours) Vital Signs Temp Pulse Pulse Resp BP Pulse Ox O2 Del Method 12/16/24 12:35 36.6 C 74 18 153/93 H 97 Room Air 12/16/24 11:38 45 L 12/16/24 11:08 36.6 C 70 18 138/78 96 Room Air 12/16/24 08:21 36.4 C L 64 18 123/73 98 Room Air 12/16/24 03:59 36.4 C L 60 19 134/80 99 Room Air 12/16/24 02:52 65
[2024-12-16 14:56] LABS: Hematocrit (blood only) 44.4 % (42.0-52.0); Hemoglobin 15.2 g/dl (14.0-18.0); Immature Granulocytes # (auto) 0.01 K/uL (0.01-0.20); Immature Granulocytes % (auto) 0.2 %; Mean Corpuscular Hemoglobin 32.8 pg (25.0-34.0); Mean Corpuscular Volume 95.7 fL (80.0-100.0); Platelet Count 133 K/uL (130-400); RDW Standard Deviation 43.1 fL (36.4-46.3); Red Blood Count 4.64 M/uL (4.70-6.10); White Blood Count 5.15 K/ul (4.8-10.8)
[2024-12-16 15:10] LABS: Alanine Aminotransferase 35.0 U/L (7-52); Albumin Globulin Ratio 1.6 (0.9-2); Alkaline Phosphatase 66.0 U/L (34-104); Anion Gap 5.0 (3-11); Bilirubin,Total 0.5 mg/dl (0.2-1.0); Blood Urea Nitrogen 15.0 mg/dl (6-23); Calcium 8.9 mg/dl (8.6-10.3); Carbon Dioxide 27.0 mmol/L (21-32); Chloride 104.0 mmol/L (98-107); Creatinine Clr Calc Pharmacy 63.9 ml/min; Globulin 2.5 gm/dl (2.5-4.0); Glucose 100.0 mg/dl (70-99(Fasting)); Magnesium 2.1 mg/dl (1.7-2.4); Potassium 4.5 mmol/L (3.5-5.1); Sodium 136.0 mmol/L (136-145); Total Protein 6.6 gm/dl (6.0-8.3)
--- NOTE | 2024-12-16 16:00 | Magnetic Resonance Report ---
MR brain wo con HISTORY: 69 years-old Male Rule out Stroke acute stroke like symptoms COMPARISON: CTA head of same day, brain MRI 04/05/2024 TECHNIQUE: Multiplanar multisequence MRI of the brain was obtained without IV contrast FINDINGS: No restricted diffusion to suggest acute or subacute infarct. Midline structures appear unremarkable. Degenerative changes of the cervical spine. No acute intracranial hemorrhage, midline shift, abnorma l extra-axial collection, hydrocephalus or intra-axial mass. Mild involutional changes. Minimal T2/FL AIR hyperintense foci throughout the periventricular white matter suggestive of chronic microvascular ischemic disease. Cerebral venous sinuses and major arterial flow voids appear patent. Prior bilateral lens repair. Sku ll, orbits and soft tissues are unremarkable. Mastoid air cells are clear. IMPRESSION: No acute intracranial abnormality, specifically no acute or subacute infarct is present. ACT 112: Negative or not required by law. The above report was generated using voice recognition software. It may contain grammatical, syntax o r spelling errors. Electronically signed by: Ralph Reyna M.D. 12/16/2024 3:58 PM
[2024-12-16 16:06] VITALS: BP 142/80; O2SAT 96
--- NOTE | 2024-12-16 17:10 | Discharge Summary ---
Date of Service December 16, 2024 Admission HPI Per Admitting Provider 69 yo with no PMH Hypertension, hyperlipidemia, Moderate cognitive sent by PCP due to extensive DVT, referred by PCP. Patient found with segmental and documental PE as well at the ED. Patient states developing right leg pain and swelling 3 weeks ago and after a [address] Patient denied any SOB, chest pain or palpitations. Patient only complains of right lower extremity. Denied any chest pain, SOB, palpitations. Denied any abdominal pain, nausea or vomiting. Denied any history of blood clots. Denied any history of cancer. Admission Exam Per Admitting Provider PHYSICAL EXAM: GENERAL: Patient is in no acute distress. HEENT: No acute trauma, normocephalic atraumatic, mucous membranes moist, no nasal congestion. NECK: No stridor, no adenopathy, no meningismus, trachea is midline. LUNGS: Clear to auscultation bilaterally, no wheeze, no rhonchi, breath sounds equal. HEART: Without murmurs gallops or rubs, regular rate and rhythm. ABDOMEN: Soft, nontender, no peritonitis. EXTREMITIES: No cyanosis, full range of motion of all the joints without pain or difficulty. Patient has edema of the right lower extremity when compared to the left. NEUROLOGIC: Oriented x 3, no acute motor or sensory deficits, no focal weakness. SKIN: No jaundice, no diaphoresis. Principal Diagnosis DVT/PE Discharge Exam Constitutional WD/WN, vitals as above ENMT external ear and nose normal, oropharynx normal Respiratory normal respiratory effort, lungs clear to auscultation Cardiovascular RRR, no murmur, no edema Extremities: + calf tenderness (was tender in lower R. calf ) and + edema (R. Leg swollen.) Gastrointestinal (Abdomen) normal bowel sounds, soft, nontender, no hepatosplenomegaly Musculoskeletal no cyanosis or clubbing, extremities motor strength 5/5 Extremities: strength 5/5 throughout Skin no rashes, warm and dry Neurologic Cranial Nerves: EOM intact bilaterally, tongue midline and no nystagmus CN 3, 4, 5, 6, 7, 11, 12 grossly intact. No facial droop or slurred speech. Discharge Data Allergies Allergy/AdvReac Type Severity Reaction Status Date / Time Penicillins Allergy Unknown UNSURE OF Verified 12/15/24 19:40 REACTION Consultations 12/15/24 19:39 ED Decision to Admit Stat Ordered Studies 12/15/24 18:12 CT angio chest PE protocol Stat 12/16/24 13:32 CT head/brain wo con Stat 12/16/24 13:38 CTA head w con [CT angio head w con] Stat 12/16/24 13:42 CT angio neck with con Stat 12/16/24 14:09 MRI Brain [MR brain wo con] Stat Hospital Course (1) DVT (deep venous thrombosis): (2) Pulmonary embolism: (3) Asymptomatic carotid artery stenosis: Plan 69 yo with no PMH Hypertension, hyperlipidemia, Moderate cognitive sent by PCP due to extensive DVT, referred by PCP. Patient found with segmental and documental PE as well at the ED. Patient states developing right leg pain and swelling 3 weeks ago and after a [address] Patient denied any SOB, chest pain or palpitations. Patient only complains of right lower extremity worse with ambulation. Denied any chest pain, SOB, palpitations. Denied any history of blood clots. Denied any history of cancer. Patient placed on heparin drip on ED. We will admit patient for further monitoring On day of discharge (12/16/24) patient appeared to be well and was hemodynamically stable. However: Stroke Alert Patient's stated that at around 12:30pm 12/16/24 is when she noticed that something was wrong with the patient. Patient said to his that he "didnt feel right" and felt dizzy whenever he moved his head to the left, and also had blurry vision bilaterally. The stroke alert was called at 1:30pm. During the alert an extensive neuro exam was done which was unremarkable. No facial droop or slurred speech was present. At about 2:00pm symptoms resolved and patient had no more blurry vision. Telestroke with neurologist, Dr. Zaire Vargas, was consulted. Neurologist suggested that since his blurriness was in both eyes, no incidence of stroke, and neuro exam was unremarkable, neurologist suggested this was asymptomatic carotid artery stenosis and was fine for discharge. Recommended to stop rosuvastatin and instead use Lipitor 80mg and Eliquis #Asymptomatic Carotid Artery Stenosis - Last known normal was at 12:30pm 12/16/24. Symptoms resolved at about 2:00pm - CTA of head and neck ordered. CTA of neck showed 80% stenosis of distal right common carotid due to extensive calcified atherosclerotic plaque. Otherwise unremarkable. - CT of head ordered. No acute intracranial findings was found. - Consulted neurology via telestroke. Neurology suggested MRI of the brain. - MRI of the brain ordered: IMPRESSION: No acute intracranial abnormality, specifically no acute or subacute infarct is present. - Neurologist re - Ordered Eliquis 10mg BID for 7 days and 5mg BID for 3 months until outpatient providers deems it fit to discontinue the Eliquis. - Ordered Lipitor 80mg #DVT/ Extensive PE - Possibly Provoked. He drove for 3 hours to his mother's house and 3 hours back to his home, but concerned for a hypercoagulable state due to how extensive DVT and PE were along with no prior history of clots. Antithrombin III Activ, Factor V Leiden mutat, and Factor V Leiden Interp still pending at time of note. - CTA: Extensive segmental and subsegmental pulmonary emboli, right greater than left. No evidence for significant right heart strain. - Doppler- deep venous thrombus within the right anterior tibial, posterior tibial and peroneal veins. Deep venous thrombus within the right femoral and popliteal veins. - Patient placed on Heparin drip by Ed provider - Hemodynamically stable, on room air, non tachycardia - Echocardiogram ordered - Shock index: 0.4, low risk. PE-SARD: 0. PESI: low risk Chronic problems stable: - HTN- continue losartan - BPH- Finasteride 5 mg - Moderate cognitive: Donepezil Total Time Total Time Spent Total Time Spent (In Minutes): per attending Discharge Plan Discharge Items Patient Disposition: Home - Self-Care Reason For Visit: DVT, PE Discharge Diagnosis: DVT, PE, Asymptomatic Carotid Stenosis Condition on Discharge: Fair Activity: Resume your previous activity Non-emergency contact: Primary Care Provider and Neurologist Call non-emergency contact if: your symptoms worsen and your temperature is above 101.5 Follow-up/Referrals: Ghada Babcock DO [Primary Care Provider] - Diet: Regular Addtl Attending Provider Instructions: You were admitted to the hospital due to right leg swelling and right leg pain. We provided imaging of your leg and chest. These tests came back with extensive blood clots in your right leg, deep vein thrombosis (DVT) and blood clots in yo ur lung, pulmonary embolism (PE). We treated these clots with heparin, an anticoagulant. During your stay you had blurry vision and dizziness when turning to the left. We initiated a "stroke alert" and got head and neck imaging. We did not find any incidence of stroke, but we did find the right carotid artery that was 80% closed up with plaque. Because of the DVT, PE, and with the 80% closed up right carotid artery, we are going to replace your rosuvastatin with Lipitor 80 mg daily, and Eliquis 10mg twice daily for 7 days followed by 5mg twice daily for 3 months or until otherwise indicated by your doctor. Please follow up with your PCP for follow-up of your blood clots. New Medications * Stop rosuvastatin * Start Lipitor 80mg daily * Start Eliquis 10mg twice daily for 7 days followed by 5mg twice daily for 3 months. Pending Studies at Discharge: Yes Stand-Alone Forms: My [facility] [employer], Smoking Cessation Medications and DC Order Prescriptions: New atorvastatin [Lipitor] 80 mg tablet 80 mg PO DAILY Qty: 30 0RF Eliquis 5 mg tablet 10 mg PO BID 7 Days Qty: 28 0RF Eliquis 5 mg tablet 5 mg PO BID 90 Days Qty: 180 0RF Continued donepezil 5 mg tablet 5 mg PO HS Spectravite Men 50 Plus 300-600-300 mcg tablet 1 tab PO QAM losartan [Cozaar] 50 mg tablet 25 mg PO PM finasteride [Proscar] 5 mg tablet 5 mg PO PM Probiotic 10 billion cell Capsule 10,000 mmu cells PO QAM Discontinued rosuvastatin 5 mg Tablet 5 mg PO PM Discharge Orders: Discharge Order (Routine); Ordered 12/16/24 Ordered By: Cortez Carr Admission Data Admit Date/Time: 12/15/24 20:53 Attending Provider: Rafy Palacios Admit Provider: Raymond Boucher Primary Care Provider: Ghada Babcock Other Providers: Lidia Tompkins Other Interventions: Discharge Summary Assessment (RN) Last Done: 12/16/24 18:05 Supervising Physician Co-Signing Physician Notes Attending attestation Pt seen and examined in concert with Dr. Carr. In agreement with the documented findings as noted in the resident documentation with any exceptions or additions as noted here. Resting comfortably follow w/u for stroke r/o with baseline presentation on evaluation. VS as noted, on examination, S1/S2 nl RRR no MCG. CTAB. Abd NT/ND BS+ve. CNII- XII grossly intact on evaluation in room including visual marquis. Malaise with concern for bilateral blurry vision - CT head, CTA head, MRI brain without acute pathology. Was on heparin drip for PE/DVT at time of presenting sx. CTA Neck showed 80% unilateral stenosis which warrants further evaluation in follow up but after d/w neurology not likely contributory to presentation. Acute bilateral PE due to acute right anterior tibial, posterior tibial and peroneal DVT - transition to apixaban from heparin drip. Review of secondary prevention per resident documentation. Else see resident documentation as noted. Total attending physician time spent with this patient's care on the day of discharge: 50 minutes. Resident Activity Tracking Resident Involvement: Resident Care Provided Care Provided: Adult Hospital Medicine
[2024-12-16 17:26] VITALS: PULSE 69
--- NOTE | 2024-12-16 17:38 | Electrocardiogram Report ---
Test Reason : Blood Pressure : */* mmHG Vent. Rate : 56 BPM Atrial Rate : 56 BPM P-R Int : 186 ms QRS Dur : 86 ms QT Int : 410 ms P-R-T Axes : -2 74 58 degrees QTcB Int : 395 ms Sinus bradycardia Otherwise normal ECG When compared with ECG of 15-Aug-2023 15:19, No significant change was found Confirmed by Rafy Luo ([id number]) on 12/16/2024 5:38:23 PM Referred By: REFERRED SELF Confirmed By: Rafy Luo
== END 2024-12-16 19:15 | disposition home or self-care (01) | DRG 299 ==
LOC: ED 17:47 → SUATTDRO 20:53 → 2E 20:53

== ENCOUNTER 2025-02-02 06:37 | Inpatient (IN) ==
--- NOTE | 2025-01-28 08:23 | Anesthesiology Consultation ---
Date of Service January 28, 2025 Assessment & Plan Chart Review Chart Review: Acceptable Risk for Surgery and Patient NOT seen in Pre Admission Testing Consults Requested none ASA [id number] Proposed Anesthesia Anesthesia Type: General Anesthesia Line Insertion: Arterial line History Surgery Operation Date: 02/02/25 08:00 Proposed Procedures p Right Transcarotid Artery Revascularization - Chauncey Marrero MD Height/Weight Height: 5 ft 10 in Weight: 90.718 kg Allergies Allergy/AdvReac Type Severity Reaction Status Date / Time Penicillins Allergy Unknown UNSURE OF Verified 01/27/25 14:57 REACTION Medications Home Medications Medication Instructions Recorded Confirmed Last Taken finasteride 5 mg tablet (Proscar) 5 mg PO HS 02/09/21 01/27/25 12/14/24 losartan 50 mg tablet (Cozaar) 25 mg PO HS 02/09/21 01/27/25 12/14/24 [id number] 300 mcg-K 60 1 tab PO QAM 04/23/21 01/27/25 12/15/24 mcg-lycop 600 mcg-lutein 300 mcg tablet (Spectravite Men 50 Plus) Lactobacillus acidophilus 10 10,000 mmu cells PO QAM 04/30/22 01/27/25 12/15/24 billion cell capsule (Probiotic) donepezil 5 mg tablet 5 mg PO HS 12/09/24 01/27/25 12/14/24 apixaban 5 mg tablet (Eliquis) 5 mg PO BID 3 months #180 tabs 12/16/24 01/27/25 Unknown aspirin 81 mg tablet 81 mg PO QAM 01/27/25 01/27/25 Unknown atorvastatin 80 mg tablet (Lipitor) 80 mg PO HS 01/27/25 01/27/25 Unknown clopidogrel 75 mg tablet 75 mg PO QAM 01/27/25 01/27/25 Unknown Past Medical History Medical History History of BPH History of hypertension Hx of hyperlipidemia Slow to wake up after anesthesia pt also stated "that one time after surgery when he had to spend the night in the hospital that he became disoriented and didn't know where he was" Asymptomatic carotid artery stenosis Hx pulmonary embolism dx 12/15/24, 2/2 to DVT Hx of deep venous thrombosis dx 12/15/24, "only thing he had been doing was taking repeated 3 hour back and forth trip to his mom's" History of colon polyps History of back problems Osteoarthritis of left hip Fluid collection at surgical site Pt underwent a laparoscopic left inguinal hernia repair with mesh on 06/21/21 that has been complicated by abscess formation. This was drained by radiology on 08/07 and cultures returned + for mycobacterium. He was hospitalized/given IV abx. I&D of left groin abscess done 08/16/21 (Grade 2 view, MAC#3, ETT 7.5 at [facility]) Hearing deficit ASCVD Aorta/Carotids/Coronary arteries calcified Exercise / Class Metabolic Activity III < 4 Walking/Shop/Light housework Past Family History Family History Father Hypertension Other Hearing loss No family history of adverse response to anesthesia No family history of bleeding disorder Past Surgical History Surgical History History of total hip arthroplasty left and right History of colonoscopy (05/09/22) History of surgery (09/25/21) Exploration Left Groin(Left) - David Scott MD, FACS History of incision and drainage (08/16/21) Incision and drainage abscess cavity and removal infected Marlex mesh Dr. Scott 08/16/2021 Grade 2 view, MAC 3, ETT 7.5. S/P left inguinal hernia repair (06/21/21) Left Laparoscopic Recurrent Indirect Inguinal Hernia Repair with Marlex Mesh(Left) - David Scott MD, FACS 06/21/21 Grade 1 view, MAC 4, ETT 7.5. History of esophagogastroduodenoscopy (EGD) H/O tooth extraction H/O shoulder surgery RT Hx of colonoscopy with polypectomy H/O hand surgery Right hand cyst Hx of cataract surgery RT/LEFT H/O right knee surgery Past Anesthesia History No Hx of Anesthesia Complications and No Family Hx of Anesthesia Complications History of PONV No Hx of PONV and No Hx of Motion Sickness Social History Smoking Status: Former smoker tobacco type: cigarettes Do You Dip or Chew Tobacco: No Smoking End Date: years ago Hx Alcohol Use: Yes Alcohol type: beer alcohol intake frequency: holidays/special occasions only Hx Substance Use: No substance use type: does not use Substance Use Type Other:: advised hold 3 day or longer Testing Electrocardiogram Date: 12/15/24 Findings: + SB @ (@ 56) Chest X-Ray Date: 02/07/23 Findings: + NAD and + atherosclerosis of thoracic aorta Echocardiogram Date: 12/16/24 EF: 60% LV Function: normal RWMA: + none Other Findings: + atrial enlargement (RA mildly dilated), + LVH (mild) and + diastolic dysfunction (Grade 1) Valvular Disease: + no significant valvular disease mild TR RV-mildly dilated w/ NL Fxn Other Testing 12/16/24-Neck CTA-LADONNA distal 80% w/ extensive plaque LICA--moderate plaque 12/15/2024-Chest CTA-extensive segmental and subsegmental PE's;R > L;No evidence for significant right heart strain
[~2025-02-02 06:37] MED LIST changes: -ALLERGY Noted to ORDERED Medication SCH; +LACTATED RINGER'S 1,000 ML IV SCH
[2025-02-02] MEDS ORDERED: ATROPINE SULFATE 0.1 MG/ML 10ML SYR IV PRN (07:00)
[2025-02-02] MEDS ORDERED: PROMETHAZINE HCL 6.25 MG in SODIUM CHLORIDE 0.9% 50 ML IV PRN (07:00)
[2025-02-02] MEDS ORDERED: FLUMAZENIL 0.1 MG/1 ML 10 ML VIAL IV PRN (07:00)
[2025-02-02] MEDS ORDERED: NALOXONE HCL 0.4 MG/1 ML VIAL/CARP IV PRN (07:00)
[2025-02-02] MEDS ORDERED: ONDANSETRON INJ 2 MG/ML 2 ML VIAL IV PRN (07:00)
[2025-02-02] MEDS: LR 15ML/HR IV SCH (07:22)
[2025-02-02] MEDS ORDERED: PROPOFOL IV EMULSION 10 MG/ML 20 ML VIAL IV ONE (07:23)
[2025-02-02] MEDS ORDERED: NEOSTIGMINE METHYLSULFATE 1 MG/ML 10ML VIAL ONE (07:24)
[2025-02-02] MEDS ORDERED: GLYCOPYRROLATE 0.2 MG/ML VIAL ONE ×2 (07:24→09:43)
[2025-02-02] MEDS ORDERED: MIDAZOLAM HCL 1 MG/ML 2ML VIAL ONE (07:25)
[2025-02-02] MEDS ORDERED: ONDANSETRON INJ 2 MG/ML 2 ML VIAL ONE (07:27)
[2025-02-02] MEDS ORDERED: DEXAMETHASONE SOD INJ 4 MG/ML VIAL ONE (07:27)
--- NOTE | 2025-02-02 07:27 | History & Physical Report ---
Date of Service February 02, 2025 History of Present Illness Primary Care Provider: Sophie Jett Chief Complaint Carotid Artery Stenosis Reason for Consultation Right carotid artery stenosis History of Present Illness I had the pleasure of seeing Amanuel today for evaluation of his carotid disease. As you know he is a 69-year-old gentleman who was admitted to the hospital with extensive DVT of the lower extremity and pulmonary emboli. He is on Eliquis at this point. He did have a period of visual disturbance of both eyes while in the hospital and had a neck CTA which showed an 80% right internal carotid artery stenosis. He is asymptomatic from cerebrovascular insufficiency. He is also asymptomatic for claudication. Review of Systems 10 systems were reviewed. There were no other positive findings other than the HPI. Physical Exam Vitals & Measurements Input and Output - Last 24 hours (Last 8 hours) No I/O Data Found: On exam he is awake alert and oriented x 3. He is in no apparent distress. His blood pressure is 124/70 on the left and 130/80 on the right. His radials and carotids are +2 bilaterally. I cannot appreciate carotid bruits. His abdominal exam is benign. His lungs are clear. His heart has a RRR. No widened aortic pulse appreciated. His femorals and pedal pulses are +2 bilaterally. Neurologic exam is intact to motor and sensory function. Diagnostic Results CT angiogram shows 80% stenosis of the right internal carotid artery. Assessment/Plan 1. Carotid stenosis This point we recommend intervention of the right carotid artery. He went over the risks and benefits of a TCAR versus endarterectomy. He is elected to go ahead with a TCAR. Risks and benefits of a TCAR were discussed and also included on the consent form. He understood and agreed to have this procedure. We will have to start him on Plavix as well as continue his aspirin and Eliquis. After 30 days postop we could stop the aspirin and keep him on Plavix for a year postprocedure. Will keep you informed as to his progress. Thank you very much for letting us participate in the care of this patient. Sincerely, Vanesa Marrero MD Attestation I have personally spent __50___ minutes performing [id number] and rsz-nulo-dd-face activities on this date of service. Activities Include: _x_ review of the medical record _x_ obtaining a history _x_ physical exam/evaluation __ review labs _x_ review radiology reports _x_ counseling/educating patient/family/caregiver __ discussion/referral to other healthcare professional __x documenting care in the medical record _x_ independent interpretation of results CT angiogram of the carotids done at [facility] __ communication of results to patient/family/caregiver __ coordination of care Problem List/Past Medical History Ongoing BPH with obstruction/lower urinary tract symptoms Carotid stenosis DVT (deep venous thrombosis) Hepatic steatosis History of adenomatous polyp of colon Hyperlipidemia Hypertension Moderate cognitive impairment Pulmonary emboli Vascular ectasias Resolved Medicare annual wellness visit, subsequent Medications Home aspirin(Aspir 81), 81 mg, Daily clopidogrel(Plavix 75 mg oral tablet), 75 mg= 1 tab, PO, Daily, 11 refills Allergies No Known Medication Allergies Social History Smoking Status Former Smoker, quit > 1 yr Alcohol Use:Current Frequency:1-2 times per week 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 Type II diabetes mellitus: Father. Health Status Family Member(s) Mother: History is negative Immunizations Vaccine Date Status zoster vaccine, inactivated 07/18/2022 Recorded zoster vaccine, inactivated 05/13/2022 Recorded influenza virus vaccine, inactivated 04/15/2022 Given pneumococcal 20-valent conjugate vaccine 04/15/2022 Given SARS-CoV-2 mRNA-1273 (6y+ bivalent) 03/29/2022 Recorded SARS-CoV-2 (COVID-19) mRNA-1273 vaccine 04/22/2021 Recorded SARS-CoV-2 (COVID-19) mRNA-1273 vaccine 04/21/2021 Recorded Comments : [facility] influenza virus vaccine, inactivated 04/09/2021 Given SARS-CoV-2 (COVID-19) mRNA-1273 vaccine 09/17/2020 Recorded Comments : 2021-04-09: Historical information-source unspecified SARS-CoV-2 (COVID-19) mRNA-1273 vaccine 09/07/2020 Recorded SARS-CoV-2 (COVID-19) mRNA-1273 vaccine 08/19/2020 Recorded Comments : 2021-04-09: Historical information-source unspecified SARS-CoV-2 (COVID-19) mRNA-1273 vaccine 08/07/2020 Recorded Signature Line Electronic Signature on File Chauncey Marrero MD Author Signature Dt/Tm: 01/04/2025 03:50 PM Veneer Department Manager Rigo Mars [facility] [place] [address] [place] [address] EJS Result Type: .Outpt Ltr Date of Service: January 04, 2025 13:58 EDT Authorization Status: Final Subject: Consult Note Author or Import Date: MD Marrero Eugene J on January 04, 2025 15:50 EDT Verified By: MD Marrero Eugene J on January 04, 2025 15:50 EDT Encounter info: [id number], [facility], Clinic, 01/04/2025 - 01/04/2025 Allergies Allergy/AdvReac Type Severity Reaction Status Date / Time Penicillins Allergy Unknown UNSURE OF Verified 02/02/25 06:45 REACTION Home Medications Medication Instructions Recorded Confirmed Type finasteride 5 mg tablet (Proscar) 5 mg PO HS 02/09/21 02/02/25 History losartan 50 mg tablet (Cozaar) 25 mg PO HS 02/09/21 02/02/25 History igenrlwb-pe-hipaa 300 mcg-K 60 1 tab PO QAM 04/23/21 02/02/25 History mcg-lycop 600 mcg-lutein 300 mcg tablet (Spectravite Men 50 Plus) Lactobacillus acidophilus 10 10,000 mmu cells PO QAM 04/30/22 02/02/25 History billion cell capsule (Probiotic) donepezil 5 mg tablet 5 mg PO HS 12/09/24 02/02/25 History apixaban 5 mg tablet (Eliquis) 5 mg PO BID 3 months #180 tabs 12/16/24 02/02/25 Rx aspirin 81 mg tablet 81 mg PO QAM 01/27/25 02/02/25 History atorvastatin 80 mg tablet (Lipitor) 80 mg PO HS 01/27/25 02/02/25 History clopidogrel 75 mg tablet 75 mg PO QAM 01/27/25 02/02/25 History Past Med/Surg History Problem List Asymptomatic carotid artery stenosis Pulmonary embolism DVT (deep venous thrombosis) BPH (benign prostatic hyperplasia) Hyperlipemia Hypertension controlled, stable per pt Medical History History of BPH History of hypertension Hx of hyperlipidemia Slow to wake up after anesthesia pt also stated "that one time after surgery when he had to spend the night in the hospital that he became disoriented and didn't know where he was" Asymptomatic carotid artery stenosis Hx pulmonary embolism dx 12/15/24, 2/2 to DVT Hx of deep venous thrombosis dx 12/15/24, "only thing he had been doing was taking repeated 3 hour back and forth trip to his mom's" History of colon polyps History of back problems Osteoarthritis of left hip Fluid collection at surgical site Pt underwent a laparoscopic left inguinal hernia repair with mesh on 06/21/21 that has been complicated by abscess formation. This was drained by radiology on 08/07 and cultures returned + for mycobacterium. He was hospitalized/given IV abx. I&D of left groin abscess done 08/16/21 (Grade 2 view, MAC#3, ETT 7.5 at [facility]) Hearing deficit Surgical History History of total hip arthroplasty left and right History of colonoscopy (05/09/22) History of surgery (09/25/21) Exploration Left Groin(Left) - David Scott MD, FACS History of incision and drainage (08/16/21) Incision and drainage abscess cavity and removal infected Marlex mesh Dr. Scott 08/16/2021 Grade 2 view, MAC 3, ETT 7.5. S/P left inguinal hernia repair (06/21/21) Left Laparoscopic Recurrent Indirect Inguinal Hernia Repair with Marlex Mesh(Left) - David Scott MD, FACS 06/21/21 Grade 1 view, MAC 4, ETT 7.5. History of esophagogastroduodenoscopy (EGD) H/O tooth extraction H/O shoulder surgery RT Hx of colonoscopy with polypectomy H/O hand surgery Right hand cyst Hx of cataract surgery RT/LEFT H/O right knee surgery Family History Father Hypertension Other Hearing loss No family history of adverse response to anesthesia No family history of bleeding disorder Social History Smoking Status: Former smoker Tobacco Type: Cigarettes packs per day: 0.5; Smoking End Date: years ago; Second Hand Exposure: No; Do You Dip or Chew Tobacco: No; Tobacco Cessation Education Requested by Patient: No Hx Alcohol Use: Yes Alcohol type: beer Alcohol Intake Frequency: 2-3 x/Week Hx Substance Use: No Preferred Language: Ethiopian Communication Ability: Effective Visual Impairment: Limited Hearing Ability: Use of Hearing Aid Rock Picker Required: No Beliefs That Will Affect Care: None marital status: Current Living Situation: Spouse current occupational status: retired Other Information That Helps Us Care for You: No Feels Safe at Home: Yes Safety Concerns: Feels Safe At This Time Diet: ideal protein caffeine: No during the past year weight has: decreased > 10 lbs Assistive Devices: Hearing Aid - Bilateral Results & Data Vital Signs (Past 12 Hours) Vital Signs Temp Pulse Resp BP BP Pulse Ox O2 Del Method 02/02/25 07:03 Room Air 02/02/25 07:03 36.6 C 55 L 18 125/85 120/73 97 Room Air
--- NOTE | 2025-02-02 07:27 | History & Physical Bridge Note ---
Date of Service February 02, 2025 History & Physical Bridge Note I have examined the patient, reviewed the History & Physical and in the interval since the performance of the History & Physical I have noted the following changes of clinical significance: no changes noted
[2025-02-02] MEDS ORDERED: CISATRACURIUM BESYLATE IV SOLN 2 MG/ML 10 ML VIAL IV ONE (07:28)
[2025-02-02] MEDS ORDERED: HEPARIN SOD (PORCINE) 1000 UNIT/ML ONE (07:28)
[2025-02-02] MEDS: CLINDA 900 MG **Premixed Bag IV SCH (07:58)
[2025-02-02] MEDS ORDERED: ETOMIDATE 2 MG/ML 20 ML VIAL IV ONE (08:18)
[2025-02-02] MEDS: HEPARIN (PORCINE) 1000 UNIT/ML 10 ML (CATH LAB USE ONLY) ONE (08:48)
[2025-02-02] MEDS: GELATIN SPONGE SZ 100 ONE (08:48)
[2025-02-02] MEDS: THROMBIN FOR SOLN 20000 UNIT KIT ONE (08:48)
[2025-02-02] MEDS ORDERED: PROTAMINE SULFATE 10 MG/ML 5 ML VIAL IV ONE (09:22)
[2025-02-02] MEDS: VISIPAQUE IV ONE (09:30)
--- NOTE | 2025-02-02 09:30 | Post Operative Brief Note ---
Immediate Post Op Note Date of Surgery February 02, 2025 Pre & Post Diagnosis Operation Date: 02/02/25 08:00 Pre-Op Diagnosis: Right Internal Carotid Artery Stenosis Post-Op Diagnosis: Right Internal Carotid Artery Stenosis I identified the patient and participated in the time-out.: Yes Procedure Operation Date: 02/02/25 08:00 Actual Procedures p Right Transcarotid Artery Revascularization, Ultrasound Localization of Left Common Femoral Vein(Right) - Chauncey Marrero MD Surgeon Chauncey Marrero MD Reverberatory Furnace Supervisor MD Ayan EstesMinarchick,PAC Estimated Blood Loss 10 Findings Consistent with Post-Op Diagnosis Anesthesia Type General Complications none Disposition Accompanied Patient To Recovery: No Disposition: Recovery Room
[2025-02-02] MEDS: ceFAZolin 330 MG/ML 1 GM VIAL ONE (09:37)
[2025-02-02] MEDS: BUPIVACAINE/EPINEPHRINE 0.5% MPF 1:200,000 30 ML VIAL ONE (09:38)
--- NOTE | 2025-02-02 09:39 | Operative Report ---
Post Operative Report Pre & Post Diagnosis Operation Date: 02/02/25 08:00 Pre-Op Diagnosis: Asymptomatic, high grade right internal carotid artery stenosis Post-Op Diagnosis: Asymptomatic, high grade right internal carotid artery stenosis I identified the patient and participated in the time-out.: Yes Procedure Operation Date: 02/02/25 08:00 Actual Procedures p Right Transcarotid Artery Revascularization, Ultrasound Localization of Left Common Femoral Vein(Right) - Chauncey Marrero MD Surgeon Chauncey Marrero MD Used Equipment Sales Representative MD Josselyn Tsang,PAC Estimated Blood Loss 10 Findings See Below Patient had high grade stenosis of the right carotid artery, improved after balloon angioplasty and stenting. Completion angiogram showed good wall apposition of the stent. There were no areas of dissection or flow limiting stenosis. He was moving all extremities to command at conclusion of the case. Specimens None Anesthesia Type General Complications None Disposition Accompanied Patient To Recovery: Yes Indications 69 year old male with asymptomatic, high grade stenosis of the right carotid artery. For this reason, he was offered revascularization of the right carotid artery. After discussion of risks and benefits, he provided informed consent to right transcarotid artery revascularization (TCAR). Description of Procedure The patient was brought to the operating room, where lines were placed and general anesthesia was accomplished by anesthesia team. A shoulder roll was placed and the neck was rotated towards the left side of the patient. The right neck and bilateral groins were prepped and patient was draped in the usual sterile fashion. A timeout was performed identifying the correct patient by nam e, procedure, and location of procedure and all were in agreement. A 4cm transverse incision was made between the sternal and clavicular heads of the sternocleidomastoid muscle. The muscle heads were retracted to each side and the carotid sheath was identified. Using blunt dissection, the carotid sheath was opened and 3cm of common carotid artery (CCA) were isolated. Umbilical tape was placed around the proximal CCA under direct visualization. A 5-0 prolene U- stitch was pre-placed in the anterior wall of the CCA to facilitate hemostasis after removal of the arterial sheath at completion of the procedure. The patient was given 8,000 units of IV heparin. The contralateral (left) common femoral vein was accessed under ultrasound guidance using a micropuncture needle, and a wire and sheath were placed using modified Seldinger technique. The venous return sheath was advanced into the common femoral vein over the 0.035" wire. Blood was aspirated from the flow line and the sheath was flushed with heparinized saline.The sheath was secured to the patient's skin with a 2-0 silk stitch to maintain position in the vessel. We then turned our attention back to the neck. ACT was confirmed to be above 250 seconds prior to arterial access. A 4-Emirati non-stiffened micropuncture set was used to puncture the artery with a 21G needle through the pre-placed U-stitch while holding gentle traction on the umbilical tape to stabilize the CCA within the incision. The micropuncture wire was advanced 3-4cm into the CCA and the 21G needle removed. The micropuncture sheath was advanced 3cm into the CCA and the wire and dilator were removed. A cerebral angiogram was obtained after ensuring there were no air bubbles in the system. The J-tipped guidewire was inserted and we stopped short of the lesion at the level of the common carotid artery. After micropuncture sheath removal, the transcarotid arterial sheath was advanced to the 2.5cm marker and the 0.035" wire and dilator were removed. Arterial sheath position was assessed under fluoroscopy. The arterial sheath was sutured to the patient at two sites. The Flow Controller was connected to the transcarotid arterial sheath, prepared by passively allowing arterial blood to backfill the line and then it was connected to the venous return sheath. A TCAR timeout was performed, heart rate was >70bpm and systolic BP was >140mmHg. Patient had been pretreated with glycopyrrolate and atropine was available. The CCA was clamped proximally with a Doc tourniquet to ensure active flow reversal. Heparinized saline was delivered into the venous flow line to confirm adequate flow reversal. A right carotid angiogram was obtained. The lesion was crossed with an 0.014" guidewire and pre-dilation balloon angioplasty was performed with a 5.5x35mm [employer] rapid exchange balloon to 10 atmospheres. A 9-7x40mm ENROUTE transcarotid stent was placed. Post-dilation balloon angioplasty was performed with a 5.5x35mm [employer] rapid exchange balloon to 12 atmospheres. After allowing at least 2 minutes of continued flow reversal, a completion angiogram was performed showing appropriate stent position with good wall apposition. There were no areas of dissection or flow limiting stenosis visualized on completion angiogram. At TCAR case completion, antegrade flow was restored by releasing the tourniquet on the CCA and closing the stopcocks to the flow lines. The total clamp time was 16 minutes. The transcarotid arterial sheath was removed and the pre-placed suture was tied. 25mg of protamine were given. A repeat ACT was obtained and was <150 seconds. The venous return sheath was removed and hemostasis achieved with manual compression. The neck incision was irrigated with antibiotic solution and was hemostatic before closure. 20cc of 0.25% marcaine with epinephrine were used for local anesthesia around skin edges. The platysma was approximated with 3-0 Vicryl running suture and the skin was closed with 4-0 running Vicryl suture and covered with Dermabond. The patient tolerated the procedure well and was extubated in the operating room. The patient was moving all four extremities to command prior to transfer to the recovery room. All counts were correct at the end of the procedure. Fluoroscopy time was 4.1 minutes, radiation dose was 21 mGy and 12cc of contrast were used. Dr. Marrero was present and participated in all critical parts of the procedure. I attest to the content of the Intraoperative Record and any orders documented therein. Any exceptions are noted below.
[2025-02-02] MEDS ORDERED: STAT IV Infusion **Titration per Protocol STA ×2 (09:43→12:04)
[2025-02-02] MEDS ORDERED: PHENYLEPHRINE HCL 25 MG/250 ML NSS IV ONE (10:09)
[2025-02-02] MEDS: PHENYLEPHRINE/NSS 25 MG/250 ML BAG IV SCH (10:50)
--- NOTE | 2025-02-02 11:49 | Critical Care Consultation ---
Date of Consultation February 02, 2025 Assessment & Plan (1) Hyperlipemia: (2) Hypertension: (3) DVT (deep venous thrombosis): (4) Pulmonary embolism: (5) Asymptomatic carotid artery stenosis: (6) BPH (benign prostatic hyperplasia): Plan Sotero Rincon is a 69-year-old male with past medical history of pulmonary embolism/DVT on Eliquis, BPH, HTN, HLD, and right carotid artery stenosis; who presented to [facility] on 02/02/2025 for a planned right TCAR. Right carotid stenosis s/p right TCAR -Maintain SBP > 100. Initiate phenylephrine gtt if unable to maintain SBP goal. -Neurovascular checks per protocol -Continue ASA and plavix Bradycardia likely related to carotid bulb hypersensitivity in setting of TCAR -Patient maintaining HR 48-58 in the post op period. -Atropine ordered for HR < 40 -Patient asymptomatic and hemodynamically stable. Cognitive decline -Continue home Aricept HTN; HLD -Continue losartan. to start tomorrow am. -Continue atorvastatin DVT; pulmonary embolism -Continue Eliquis. Will start tonight. Benign prostatic hypertrophy -Continue finasteride. Thank you for allowing us to participate in this patients care. Please feel free to reach out with questions or concerns. Supervising Physician Co-Signing Physician Notes I saw and evaluated the patient with BESSY Grace, and agree with findings and plan as documented in the note. 69-year-old male admitted for right-sided TCAR At the time of examination in the ICU patient was on 0.3 of phenylephrine. His systolic blood pressure was in the 120s with MAP in the 80s. I advised nurse to go down on the phenylephrine 2.2 He complained of some discomfort at the incision site. The incision site was mildly erythematous but no swelling or hematoma appreciated. He did complain of some sore throat. He was able to finish lunch without any issues. Denies any blurry vision, no unusual headache. No abdominal pain. Social history: Quit smoking in 2000, approximately [id number] smoking history Constitutional: No acute distress HEENT: EOMI, PERRLA Respiratory system: Good air entry bilaterally, no wheeze, no rhonchi, mild crackles bilateral lower lobe CVS: S1-S2 positive, no murmurs or gallops Abdomen: Soft, nontender, nondistended, positive bowel sounds x4 Extremities: +2 pulses bilaterally radialis/ dorsalis pedis, no cyanosis, no edema, left groin clean Neuro: Awake alert oriented x3, cranial nerves II to XII grossly intact, patient does have some stutter which is chronic, muscular strength 5/5 bilateral upper and lower extremities Psych: Normal mood and affect G/U: No Orourke --Prophylaxis VTE: Eliquis GI: None Lines: Left radial, peripheral Diet: Cardiac Plan: Strict ins and out Continue with neurochecks Blood pressure protocol as per vascular surgery Continue with perioperative antibiotics Try to wean off phenylephrine. I have personally spent 33 minutes of critical care time in the direct management of this patient. This is a life/limb threatening event. This includes time spent evaluating patient, direct bedside care, chart review, placing orders, interpretation of diagnostic studies, discussion with consultants, patient, and family members, as well as other required patient management activities. This time is exclusive of all separately billable procedures, and teaching time and separate from and in addition to any other critical care service time. Please note the above document was generated using voice recognition software. It may contain grammatical, syntax or spelling errors. History of Present Illness Reason for Consultation: Post operative evaluation and management of right TCAR Attending Physician: Chauncey Marrero MD History of Present Illness Sotero Rincon is a 69-year-old male with past medical history of pulmonary embolism/DVT on Eliquis, BPH, HTN, HLD, and right carotid artery stenosis; who presented to [facility] on 02/02/2025 for a planned right TCAR. The patient was admitted din December of 2024 after having right leg pain and swelling. The patient was found to have extensive DVT in the right femoral and popliteal veins as well as significant PE in the bilateral segmental and subsegmental branches of the pulmonary artery. This appeared to be unprovoked. The patient at the time was asymptomatic and hemodynamically stable. He was placed on a heparin gtt and admitted to the hospital. While in the hospital he had a episode of bilateral visual disturbance and a head CTA showed no acute intracranial abnormality but did showed > 80% stenosis of the right ICA. The patient was transitioned to [facility] and discharged with plan to follow up with vascular surgery. The patient was evaluated by Dr. Marrero and brought back today for his right TCAR which per report was performed without complication. The patient was extubated and admitted to the ICU post operatively for continued evaluation and management of right carotid stenosis s/p right TCAR. Allergies Allergy/AdvReac Type Severity Reaction Status Date / Time Penicillins Allergy Unknown UNSURE OF Verified 02/02/25 06:45 REACTION Home Medications Medication Instructions Recorded Confirmed Type finasteride 5 mg tablet (Proscar) 5 mg PO HS 02/09/21 02/02/25 History losartan 50 mg tablet (Cozaar) 25 mg PO HS 02/09/21 02/02/25 History ioquaktn-lh-hgobe 300 mcg-K 60 1 tab PO QAM 04/23/21 02/02/25 History mcg-lycop 600 mcg-lutein 300 mcg tablet (Spectravite Men 50 Plus) Lactobacillus acidophilus 10 10,000 mmu cells PO QAM 04/30/22 02/02/25 History billion cell capsule (Probiotic) donepezil 5 mg tablet 5 mg PO HS 12/09/24 02/02/25 History apixaban 5 mg tablet (Eliquis) 5 mg PO BID 3 months #180 tabs 12/16/24 02/02/25 Rx aspirin 81 mg tablet 81 mg PO QAM 01/27/25 02/02/25 History atorvastatin 80 mg tablet (Lipitor) 80 mg PO HS 01/27/25 02/02/25 History clopidogrel 75 mg tablet 75 mg PO QAM 01/27/25 02/02/25 History Patient History Medical History History of BPH History of hypertension Hx of hyperlipidemia Slow to wake up after anesthesia pt also stated "that one time after surgery when he had to spend the night in the hospital that he became disoriented and didn't know where he was" Asymptomatic carotid artery stenosis Hx pulmonary embolism dx 12/15/24, 2/2 to DVT Hx of deep venous thrombosis dx 12/15/24, "only thing he had been doing was taking repeated 3 hour back and forth trip to his mom's" History of colon polyps History of back problems Osteoarthritis of left hip Fluid collection at surgical site Pt underwent a laparoscopic left inguinal hernia repair with mesh on 06/21/21 that has been complicated by abscess formation. This was drained by radiology on 08/07 and cultures returned + for mycobacterium. He was hospitalized/given IV abx. I&D of left groin abscess done 08/16/21 (Grade 2 view, MAC#3, ETT 7.5 at [facility]) Hearing deficit Surgical History History of total hip arthroplasty left and right History of colonoscopy (05/09/22) History of surgery (09/25/21) Exploration Left Groin(Left) - David Scott MD, FACS History of incision and drainage (08/16/21) Incision and drainage abscess cavity and removal infected Marlex mesh Dr. Scott 08/16/2021 Grade 2 view, MAC 3, ETT 7.5. S/P left inguinal hernia repair (06/21/21) Left Laparoscopic Recurrent Indirect Inguinal Hernia Repair with Marlex Mesh(Left) - David Scott MD, FACS 06/21/21 Grade 1 view, MAC 4, ETT 7.5. History of esophagogastroduodenoscopy (EGD) H/O tooth extraction H/O shoulder surgery RT Hx of colonoscopy with polypectomy H/O hand surgery Right hand cyst Hx of cataract surgery RT/LEFT H/O right knee surgery Family History Father Hypertension Other Hearing loss No family history of adverse response to anesthesia No family history of bleeding disorder Social History Smoking Status: Former smoker Tobacco Type: Cigarettes packs per day: 0.5; Smoking End Date: years ago; Second Hand Exposure: No; Do You Dip or Chew Tobacco: No; Tobacco Cessation Education Requested by Patient: No Hx Alcohol Use: Yes Alcohol type: beer Alcohol Intake Frequency: 2-3 x/Week Hx Substance Use: No Preferred Language: Mohawk Communication Ability: Effective Visual Impairment: Limited Hearing Ability: Use of Hearing Aid Input Output Clerk Required: No Beliefs That Will Affect Care: None marital status: Current Living Situation: Spouse current occupational status: retired Other Information That Helps Us Care for You: No Feels Safe at Home: Yes Safety Concerns: Feels Safe At This Time Diet: ideal protein caffeine: No during the past year weight has: decreased > 10 lbs Assistive Devices: Hearing Aid - Bilateral Review of Systems Review of Systems: All systems reviewed & are unremarkable except as noted in HPI & below Physical Exam Physical Exam: VITALS: Reviewed. WEIGHT/BMI reviewed. GEN: Healthy appearing, well-developed, NAD. PSYCH:Pleasant affect. AOx2. Confused to month. HEENT -Head: NC/AT; -Eyes: PERRL, EOMI. No discharge or redn ess; -Ears: External ears are normal. -Nose: Normal nares. -Mouth and throat: MMM. Normal gums, muc oswaldo, palate,. Good dentition. NECK: Supple, with no masses. CV: RRR, no m/r/g. LUNGS: CTAB, no w/r/c. ABD: Soft, NT/ND, NBS, no masses or organomegaly. : Orourke draining yellow clear urine. SKIN: Warm, well perfused. No skin rashes or abnormal lesions. MSK: No deformities, Normal gait. EXT: No clubbing, cyanosis, or edema. Dopplerable distal pulses in b/l lower extremities. Warm, well perfused. Left groin access site with no drainage or hematoma. NEURO: Normal muscle strength and tone. No focal deficits. face symmetric. Speech clear. Results & Data Results & Data Vital Signs (Past 12 Hours) Vital Signs Temp Pulse Pulse Resp BP BP BP 02/02/25 11:10 57 L 18 130/67 110/65 02/02/25 10:55 36 C L 55 L 12 116/56 L 104/60 02/02/25 10:45 65 16 99/50 L 86/45 L 02/02/25 10:35 66 14 102/50 L 94/55 L 02/02/25 10:25 68 12 108/54 L 109/65 02/02/25 10:15 82 16 113/57 L 117/67 02/02/25 10:06 36 C L 84 18 109/65 02/02/25 07:03 02/02/25 07:03 36.6 C 55 L 18 125/85 120/73 Pulse Ox O2 Del Method O2 Flow Rate 02/02/25 11:10 100 Room Air 02/02/25 10:55 97 Room Air 02/02/25 10:45 94 Room Air 02/02/25 10:35 96 Room Air 02/02/25 10:25 94 Room Air 02/02/25 10:15 96 Oxymask 3 02/02/25 10:06 97 Oxymask 6 02/02/25 07:03 Room Air 02/02/25 07:03 97 Room Air Critical Care Results & Data Vital Signs (Past 12 Hours) Vital Signs Temp Pulse Pulse Resp BP BP BP 02/02/25 11:10 57 L 18 130/67 110/65 02/02/25 10:55 36 C L 55 L 12 116/56 L 104/60 02/02/25 10:45 65 16 99/50 L 86/45 L 02/02/25 10:35 66 14 102/50 L 94/55 L 02/02/25 10:25 68 12 108/54 L 109/65 02/02/25 10:15 82 16 113/57 L 117/67 02/02/25 10:06 36 C L 84 18 109/65 02/02/25 07:03 02/02/25 07:03 36.6 C 55 L 18 125/85 120/73 Pulse Ox O2 Del Method O2 Flow Rate 02/02/25 11:10 100 Room Air 02/02/25 10:55 97 Room Air 02/02/25 10:45 94 Room Air 02/02/25 10:35 96 Room Air 02/02/25 10:25 94 Room Air 02/02/25 10:15 96 Oxymask 3 02/02/25 10:06 97 Oxymask 6 02/02/25 07:03 Room Air 02/02/25 07:03 97 Room Air Lab & Micro Results (Past 24 Hours) No Data to Display No Data to Display No Data to Display I & O Totals 24 Hours 02/01/25 02/02/25 02/03/25 06:59 06:59 06:59 Intake Total 1072.353 / 1072.353 Output Total 10 / 10 Balance 1062.353 / 1062.353 Cumulative 01/05/25 13:45 thru 02/02/25 12:07 Intake Total 1072.353 Output Total 10 Balance 1062.353 RT Ventilator Mngmt (Last Documented) Ventilator Ordered Settings Respiratory Rate 18 02/02/25 11:10 Ventilator - PT Measurements Respiratory Rate 18 Coding Level of Care Code 93356 CRITICAL CARE 1ST 30-74M Diagnoses Hyperlipemia E78.5 Hypertension I10 DVT (deep venous thrombosis) I82.409 Pulmonary embolism I26.99 Asymptomatic carotid artery stenosis I65.29 BPH (benign prostatic hyperplasia) N40.0
[2025-02-02] MEDS ORDERED: LACTATED RINGER'S 1,000 ML IV SCH (12:04)
--- NOTE | 2025-02-02 12:09 | Anesthesiology Progress Note ---
Date of Service February 02, 2025 Anesthesia Post Procedure Vital Signs Vital Signs: Temp Pulse Pulse Resp BP BP BP 02/02/25 11:10 57 L 18 130/67 110/65 02/02/25 10:55 36 C L 55 L 12 116/56 L 104/60 02/02/25 10:45 65 16 99/50 L 86/45 L 02/02/25 10:35 66 14 102/50 L 94/55 L 02/02/25 10:25 68 12 108/54 L 109/65 02/02/25 10:15 82 16 113/57 L 117/67 02/02/25 10:06 36 C L 84 18 109/65 02/02/25 07:03 02/02/25 07:03 36.6 C 55 L 18 125/85 120/73 Pulse Ox O2 Del Method O2 Flow Rate 02/02/25 11:10 100 Room Air 02/02/25 10:55 97 Room Air 02/02/25 10:45 94 Room Air 02/02/25 10:35 96 Room Air 02/02/25 10:25 94 Room Air 02/02/25 10:15 96 Oxymask 3 02/02/25 10:06 97 Oxymask 6 02/02/25 07:03 Room Air 02/02/25 07:03 97 Room Air Transfer of Care Handoff Completed per policy Notes Mental Status: alert / awake / arousable Patient Amnestic to Procedure: Yes Nausea / Vomiting: adequately controlled Pain: adequately controlled Airway Patency, RR, SpO2: stable & adequate BP & HR: stable & adequate Hydration State: stable & adequate Anesthetic Complications: no major complications apparent
[2025-02-02] MEDS: LACTATED RINGER'S 1,000 ML IV SCH (12:11)
[2025-02-02] MEDS: General Order Problem(s) SCH (13:22)
[2025-02-02] MEDS: CLINDAMYCIN/D5W 600 MG/50 ML BAG IV SCH (15:54)
[2025-02-02] MEDS: ATORVASTATIN 40 MG TAB PO SCH (20:36)
[2025-02-02] MEDS: FINASTERIDE 5 MG TAB PO SCH (20:36)
[2025-02-02] MEDS: DONEPEZIL HCL 5 MG TAB PO SCH (20:37)
[2025-02-02] MEDS: LOSARTAN POTASSIUM 25 MG TAB PO SCH (21:17)
[2025-02-03] MEDS: ASPIRIN 81 MG ECTAB PO SCH (07:49)
[2025-02-03] MEDS: CLOPIDOGREL BISULFATE 75 MG TAB PO SCH (07:49)
[2025-02-03] MEDS: MULTIVITAMIN TAB PO SCH (07:49)
[2025-02-03] MEDS: APIXABAN 5 MG TABLET PO SCH (07:49)
[2025-02-03] MEDS: ADVANCED PROBIOTIC 625 MG CAPSULE PO SCH (07:49)
--- NOTE | 2025-02-03 07:52 | Critical Care Progress Note ---
Date of Service February 03, 2025 Assessment & Plan (1) Hyperlipemia: (2) Hypertension: (3) DVT (deep venous thrombosis): (4) Pulmonary embolism: (5) Asymptomatic carotid artery stenosis: (6) BPH (benign prostatic hyperplasia): Plan Sotero Rincon is a 69-year-old male with past medical history of pulmonary embolism/DVT on Eliquis, BPH, HTN, HLD, and right carotid artery stenosis; who presented to [facility] on 02/02/2025 for a planned right TCAR. Social history: Quit smoking in 2000, approximately [id number] smoking history Right carotid stenosis s/p right TCAR -Maintain SBP > 100 -Neurovascular checks per protocol -Continue ASA and Plavix Bradycardia likely related to carotid bulb hypersensitivity in setting of TCAR -Patient maintaining HR 48-58 in the post op period. -Atropine ordered for HR < 40 -Patient asymptomatic and hemodynamically stable. Cognitive decline -Continue home Aricept HTN; HLD -Continue losartan. to start tomorrow am. -Continue atorvastatin DVT; pulmonary embolism -Continue Eliquis Benign prostatic hypertrophy -Continue finasteride. --Prophylaxis VTE: Eliquis GI: None Lines: Left radial, peripheral Diet: Cardiac Plan: In/out: +3.2 L, urine output 1295 Try to wean off phenylephrine. Random cortisol is a bit on the lower side. Can consider hydrocortisone if he needs persistent vasopressor support. Midodrine being added by surgery team Potassium being replaced Disposition as per vascular surgery I have personally spent 32 minutes of critical care time in the direct management of this patient. This is a life/limb threatening event. This includes time spent evaluating patient, direct bedside care, chart review, placing orders, interpretation of diagnostic studies, discussion with consultants, patient, and family members, as well as other required patient management activities. This time is exclusive of all separately billable procedures, and teaching time and separate from and in addition to any other critical care service time. Please note the above document was generated using voice recognition software. It may contain grammatical, syntax or spelling errors. Admission and Anticipated Discharge Date Admission Date: February 02, 2025 Subjective Patient seen and examined at bedside. No acute distress, no adverse events overnight His systolic blood pressure was in the 100s and MAP in the low 70s while on 0.6 of phenylephrine He said he is feeling better compared to yesterday No more soreness in the throat Was able to tolerate the diet without any issues No shortness of breath, no chest pain Groin is clean. No hematoma No unusual headache or blurry vision Review of Systems Review of Systems: All systems reviewed & are unremarkable except as noted in Subjective Physical Exam Physical Exam: Constitutional: No acute distress HEENT: EOMI, PERRLA, right sided incision site is clean, minimal hematoma around the incision, no swelling Respiratory system: Good air entry bilaterally, no wheeze, no rhonchi, mild crackles bilateral lower lobe CVS: S1-S2 positive, no murmurs or gallops Abdomen: Soft, nontender, nondistended, positive bowel sounds x4 Extremities: +2 pulses bilaterally radialis/ dorsalis pedis, no cyanosis, no edema, left groin clean Neuro: Awake alert oriented x3, cranial nerves II to XII grossly intact, patient does have some stutter which is chronic, muscular strength 5/5 bilateral upper and lower extremities Psych: Normal mood and affect G/U: No Orourke Skin: no rashes, warm and dry Lymphatic: no cervical or axillary lymphadenopathy Results & Data Results & Data Vital Signs (Past 12 Hours) Vital Signs Temp Pulse Resp BP Pulse Ox O2 Del Method 02/03/25 06:32 102/54 L 02/03/25 06:32 102/54 L 02/03/25 06:30 88 24 94 Room Air 02/03/25 06:09 61 18 95 Room Air 02/03/25 05:51 51 L 15 94 Room Air 02/03/25 05:30 36.5 C 57 L 17 92 Room Air 02/03/25 05:09 59 L 17 92 Room Air 02/03/25 04:30 117/53 L 02/03/25 04:30 70 20 92 Room Air 02/03/25 04:27 78 17 90 Room Air 02/03/25 04:00 98/49 L 02/03/25 04:00 59 L 02/03/25 03:45 56 L 17 90 Room Air 02/03/25 03:33 53 L 17 90 Room Air 02/03/25 03:30 93/48 L 02/03/25 03:30 93/48 L 02/03/25 03:03 58 L 17 90 Room Air 02/03/25 03:00 103/54 L 02/03/25 03:00 103/54 L 02/03/25 02:45 57 L 17 90 Room Air 02/03/25 02:30 63 21 91 Room Air 02/03/25 02:30 103/55 L 02/03/25 02:30 103/55 L 02/03/25 02:30 103/55 L 02/03/25 01:30 100/51 L 91 Room Air 02/03/25 01:30 100/51 L 02/03/25 01:24 55 L 16 91 Room Air 02/03/25 01:06 59 L 17 92 Room Air 02/03/25 01:00 107/49 L 02/03/25 01:00 107/49 L 02/03/25 01:00 107/49 L 02/03/25 00:48 58 L 17 90 Room Air 02/03/25 00:33 67 19 90 Room Air 02/03/25 00:03 70 22 95 Room Air 02/03/25 00:00 97/56 L 02/03/25 00:00 97/56 L 02/02/25 23:57 64 22 92 Room Air 02/02/25 23:48 66 20 93 Room Air 02/02/25 23:41 57 L 02/02/25 23:00 61 24 108/53 L 94 Room Air 02/02/25 22:30 56 L 20 94 Room Air 02/02/25 22:00 56 L 21 94 Room Air 02/02/25 22:00 108/56 L 02/02/25 21:33 57 L 16 92 Room Air 02/02/25 21:12 58 L 21 95 Room Air 02/02/25 21:01 102/55 L 02/02/25 20:54 65 19 99 Room Air 02/02/25 20:30 109/53 L 02/02/25 20:30 57 L 23 94 Room Air 02/02/25 20:09 68 19 97 Room Air 02/02/25 20:01 98/52 L 02/02/25 19:57 61 14 95 Room Air Coding Level of Care Code 79600 CRITICAL CARE 1ST 30-74M Diagnoses Hyperlipemia E78.5 Hypertension I10 DVT (deep venous thrombosis) I82.409 Pulmonary embolism I26.99 Asymptomatic carotid artery stenosis I65.29 BPH (benign prostatic hyperplasia) N40.0
[2025-02-03] MEDS: MIDODRINE HCL 10 MG TAB PO SCH (11:01)
[2025-02-03] MEDS: PHENYLEPHRINE/NSS 25 MG/250 ML BAG IV PRN (11:11)
[2025-02-03] MEDS: POTASSIUM CHLORIDE CRTAB 20 MEQ TABCR PO STA ×2 (11:17→11:18)
--- NOTE | 2025-02-03 13:08 | Surgery Progress Note ---
Date of Service February 03, 2025 Assessment & Plan (1) Asymptomatic carotid artery stenosis: Plan: Patient POD 1 from a right tcar. Doing well. Being weaned off pressors. Midodrine added. Most likely to be d/c'd tomorrow. Admission and Anticipated Discharge Date Admission Date: February 02, 2025 Subjective Patient with no complaints. Denies any focal deficits. Physical Exam Constitutional: WD/WN, vitals as above Neck: trachea midline Respiratory: normal respiratory effort; no respiratory distress Cardiovascular: Rate/Rhythm: regular rate and regular rhythm Skin: + incision (dry and clean) Neurologic: CN's II-XI intact bilaterally and moves all extremities Psychiatric: A+Ox3, euthymic affect Results & Data Vital Signs (Past 12 Hours) Vital Signs Temp Pulse Resp BP Pulse Ox O2 Del Method 02/03/25 08:31 37 C 02/03/25 06:32 102/54 L 02/03/25 06:32 102/54 L 02/03/25 06:30 88 24 94 Room Air 02/03/25 06:09 61 18 95 Room Air 02/03/25 05:51 51 L 15 94 Room Air 02/03/25 05:30 36.5 C 57 L 17 92 Room Air 02/03/25 05:09 59 L 17 92 Room Air 02/03/25 04:30 117/53 L 02/03/25 04:30 70 20 92 Room Air 02/03/25 04:27 78 17 90 Room Air 02/03/25 04:00 98/49 L 02/03/25 04:00 59 L 02/03/25 03:45 56 L 17 90 Room Air 02/03/25 03:33 53 L 17 90 Room Air 02/03/25 03:30 93/48 L 02/03/25 03:30 93/48 L 02/03/25 03:03 58 L 17 90 Room Air 02/03/25 03:00 103/54 L 02/03/25 03:00 103/54 L 02/03/25 02:45 57 L 17 90 Room Air 02/03/25 02:30 63 21 91 Room Air 02/03/25 02:30 103/55 L 02/03/25 02:30 103/55 L 02/03/25 02:30 103/55 L 02/03/25 01:30 100/51 L 91 Room Air 02/03/25 01:30 100/51 L 02/03/25 01:24 55 L 16 91 Room Air 02/03/25 01:06 59 L 17 92 Room Air
[2025-02-03] MEDS: MIDODRINE HCL 2.5 MG TAB PO SCH (17:57)
--- NOTE | 2025-02-04 08:07 | Critical Care Progress Note ---
Date of Service February 04, 2025 Assessment & Plan (1) Hyperlipemia: (2) Hypertension: (3) DVT (deep venous thrombosis): (4) Pulmonary embolism: (5) Asymptomatic carotid artery stenosis: (6) BPH (benign prostatic hyperplasia): Plan Sotero Rincon is a 69-year-old male with past medical history of pulmonary embolism/DVT on Eliquis, BPH, HTN, HLD, and right carotid artery stenosis; who presented to [facility] on 02/02/2025 for a planned right TCAR. 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 -Atropine ordered for HR < 40 -Patient asymptomatic and hemodynamically stable. Cognitive decline -Continue home Aricept HTN; HLD -Continue losartan. to start tomorrow am. -Continue atorvastatin DVT; pulmonary embolism -Continue Eliquis Benign prostatic hypertrophy -Continue finasteride. --Prophylaxis VTE: Eliquis GI: None Lines: Left radial, peripheral Diet: Cardiac Plan: In/out: +3.2 L, urine output 1295 Try to wean off phenylephrine while keeping SBP greater than 100 Midodrine has been increased to 10 mg 3 times daily Random cortisol is on the lower side. Can consider hydrocortisone if he needs persistent vasopressor support. Donepezil has also been associated with bradycardia. Case discussed with surgery team Disposition as per vascular surgery I have personally spent 30 minutes of critical care time in the direct management of this patient. This is a life/limb threatening event. This includes time spent evaluating patient, direct bedside care, chart review, placing orders, interpretation of diagnostic studies, discussion with consultants, patient, and family members, as well as other required patient management activities. This time is exclusive of all separately billable procedures, and teaching time and separate from and in addition to any other critical care service time. Please note the above document was generated using voice recognition software. It may contain grammatical, syntax or spelling errors. Admission and Anticipated Discharge Date Admission Date: February 02, 2025 Subjective Patient seen and examined at bedside. No acute distress, no adverse events overnight Unfortunately patient again needed phenylephrine drip. He was on 0.5 with systolic in the high 100s and MAP in the 70s. Phenylephrine drip. He was on 0.5 with systolic in the high 100s and MAP in the 70s. Denies any chest pain, no shortness of breath Fair appetite Shortness of throat has resolved No unusual headache or blurry vision Has been afebrile Review of Systems Review of Systems: All systems reviewed & are unremarkable except as noted in Subjective Physical Exam Physical Exam: Constitutional: No acute distress HEENT: EOMI, PERRLA, right sided incision site is clean, no swelling Respiratory system: Good air entry bilaterally, no wheeze, no rhonchi, mild crackles bilateral lower lobe CVS: S1-S2 positive, no murmurs or gallops Abdomen: Soft, nontender, nondistended, positive bowel sounds x4 Extremities: +2 pulses bilaterally radialis/ dorsalis pedis, no cyanosis, no edema, left groin clean Neuro: Awake alert oriented x3, cranial nerves II to XII grossly intact, patient does have some stutter which is chronic, muscular strength 5/5 bilateral upper and lower extremities Psych: Normal mood and affect G/U: No [place] Skin: no rashes, warm and dry Lymphatic: no cervical or axillary lymphadenopathy Results & Data Results & Data Vital Signs (Past 12 Hours) Vital Signs Temp Pulse Pulse Resp BP BP BP 02/04/25 06:09 63 23 02/04/25 06:00 119/61 02/04/25 05:51 50 L 14 02/04/25 05:39 47 L 15 02/04/25 05:09 45 L 14 02/04/25 05:00 112/50 L 02/04/25 04:39 51 L 18 02/04/25 04:01 109/53 L 02/04/25 04:00 44 L 17 02/04/25 03:45 42 L 13 02/04/25 03:35 103/59 L 02/04/25 03:12 87/47 L 02/04/25 03:11 59 L 16 02/04/25 03:00 36.7 C 02/04/25 02:59 50 L 17 02/04/25 02:05 49 L 17 02/04/25 02:03 98/51 L 02/04/25 01:57 51 L 23 02/04/25 01:35 97/52 L 02/04/25 01:05 59 L 16 02/04/25 00:00 64 14 02/04/25 00:00 99/59 L 02/04/25 00:00 52 L 02/03/25 23:30 75 17 02/03/25 23:07 96/53 L 02/03/25 22:57 66 21 02/03/25 22:12 60 21 02/03/25 22:06 104/53 L 02/03/25 21:00 55 L 20 118/56 L 107/59 L 02/03/25 20:30 02/03/25 20:21 57 L 22 02/03/25 20:19 37.2 C 100/70 Pulse Ox O2 Del Method 02/04/25 06:09 95 02/04/25 06:00 02/04/25 05:51 93 02/04/25 05:39 93 Room Air 02/04/25 05:09 93 Room Air 02/04/25 05:00 02/04/25 04:39 93 Room Air 02/04/25 04:01 02/04/25 04:00 94 Room Air 02/04/25 03:45 94 02/04/25 03:35 02/04/25 03:12 02/04/25 03:11 02/04/25 03:00 02/04/25 02:59 95 Room Air 02/04/25 02:05 96 Room Air 02/04/25 02:03 02/04/25 01:57 94 Room Air 02/04/25 01:35 02/04/25 01:05 94 Room Air 02/04/25 00:00 93 Room Air 02/04/25 00:00 02/04/25 00:00 02/03/25 23:30 02/03/25 23:07 02/03/25 22:57 93 Room Air 02/03/25 22:12 93 Room Air 02/03/25 22:06 02/03/25 21:00 94 Room Air 02/03/25 20:30 Room Air 02/03/25 20:21 94 Room Air 02/03/25 20:19 Coding Level of Care Code 10040 CRITICAL CARE 1ST 30-74M Diagnoses Hyperlipemia E78.5 Hypertension I10 DVT (deep venous thrombosis) I82.409 Pulmonary embolism I26.99 Asymptomatic carotid artery stenosis I65.29 BPH (benign prostatic hyperplasia) N40.0
[2025-02-04] MEDS: MIDODRINE HCL 10 MG TAB PO SCH (08:40)
--- NOTE | 2025-02-04 08:54 | Surgery Progress Note ---
Date of Service February 04, 2025 Assessment & Plan (1) Asymptomatic carotid artery stenosis: Plan: Patient POD#2 after right tcar. Doing well post op. No significant pain. Being weaned off pressors. Midodrine dose increased today. Possible d/c later today if pressure stabilizes on midodrine. (2) Postoperative urinary retention: Plan: Pt with post op urinary retention. Pt denies hx of this. Will place martinez with leg bag today prior to discharge if unable to urinate. Pt can follow up outpt with urology. Admission and Anticipated Discharge Date Admission Date: February 02, 2025 Subjective 69 yo m POD #2 after R TCAR, seen in f/u today. Remains admitted d/t post op hypotension and pressor needs. Pt denies any sx, and states pain is improved. States overall, he feels much better than yesterday. Per RN, pt has required straight cath x2, as has been unable to urinate more than a few cc. Review of Systems Review of Systems: All systems reviewed & are unremarkable except as noted in HPI & below Physical Exam Constitutional: WD/WN, vitals as above Neck: trachea midline Respiratory: normal respiratory effort; no respiratory distress Cardiovascular: Rate/Rhythm: regular rate and regular rhythm Skin: + incision (dry and clean) Neurologic: CN's II-XI intact bilaterally and moves all extremities Psychiatric: A+Ox3, euthymic affect Results & Data Vital Signs (Past 12 Hours) Vital Signs Temp Pulse Pulse Resp BP BP BP 02/04/25 06:09 63 23 02/04/25 06:00 119/61 02/04/25 05:51 50 L 14 02/04/25 05:39 47 L 15 02/04/25 05:09 45 L 14 02/04/25 05:00 112/50 L 02/04/25 04:39 51 L 18 02/04/25 04:01 109/53 L 02/04/25 04:00 44 L 17 02/04/25 03:45 42 L 13 02/04/25 03:35 103/59 L 02/04/25 03:12 87/47 L 02/04/25 03:11 59 L 16 02/04/25 03:00 36.7 C 02/04/25 02:59 50 L 17 02/04/25 02:05 49 L 17 02/04/25 02:03 98/51 L 02/04/25 01:57 51 L 23 02/04/25 01:35 97/52 L 02/04/25 01:05 59 L 16 02/04/25 00:00 64 14 02/04/25 00:00 99/59 L 02/04/25 00:00 52 L 02/03/25 23:30 75 17 02/03/25 23:07 96/53 L 02/03/25 22:57 66 21 02/03/25 22:12 60 21 02/03/25 22:06 104/53 L 02/03/25 21:00 55 L 20 118/56 L 107/59 L Pulse Ox O2 Del Method 02/04/25 06:09 95 02/04/25 06:00 02/04/25 05:51 93 02/04/25 05:39 93 Room Air 02/04/25 05:09 93 Room Air 02/04/25 05:00 02/04/25 04:39 93 Room Air 02/04/25 04:01 02/04/25 04:00 94 Room Air 02/04/25 03:45 94 02/04/25 03:35 02/04/25 03:12 02/04/25 03:11 02/04/25 03:00 02/04/25 02:59 95 Room Air 02/04/25 02:05 96 Room Air 02/04/25 02:03 02/04/25 01:57 94 Room Air 02/04/25 01:35 02/04/25 01:05 94 Room Air 02/04/25 00:00 93 Room Air 02/04/25 00:00 02/04/25 00:00 02/03/25 23:30 02/03/25 23:07 02/03/25 22:57 93 Room Air 02/03/25 22:12 93 Room Air 02/03/25 22:06 02/03/25 21:00 94 Room Air
--- NOTE | 2025-02-05 05:34 | Electrocardiogram Report ---
Test Reason : Blood Pressure : */* mmHG Vent. Rate : 51 BPM Atrial Rate : 51 BPM P-R Int : 188 ms QRS Dur : 82 ms QT Int : 418 ms P-R-T Axes : 8 65 46 degrees QTcB Int : 385 ms Sinus bradycardia Otherwise normal ECG When compared with ECG of 15-Dec-2024 17:58, No significant change was found Confirmed by Mj Esquivel ([id number]) on 02/05/2025 5:34:18 AM Referred By: Chauncey Marrero Confirmed By: Mj Esquivel
--- NOTE | 2025-02-05 08:01 | Critical Care Progress Note ---
Date of Service February 05, 2025 Assessment & Plan (1) Hyperlipemia: (2) Hypertension: (3) DVT (deep venous thrombosis): (4) Pulmonary embolism: (5) Asymptomatic carotid artery stenosis: (6) BPH (benign prostatic hyperplasia): Plan Sotero Rincon is a 69-year-old male with past medical history of pulmonary embolism/DVT on Eliquis, BPH, HTN, HLD, and right carotid artery stenosis; who presented to [facility] on 02/02/2025 for a planned right TCAR. Social history: Quit smoking in 2000, approximately 29-oslg-acbi smoking history Right carotid stenosis s/p right TCAR -Maintain SBP > 100 -Neurovascular checks per protocol -Continue ASA and Plavix Bradycardia likely related to carotid bulb hypersensitivity in setting of TCAR -Patient maintaining HR 48-58 in the post op period. -Atropine ordered for HR < 40 -Patient asymptomatic and hemodynamically stable. Cognitive decline -Continue home Aricept HTN; HLD -Continue losartan. to start tomorrow am. -Continue atorvastatin DVT; pulmonary embolism -Continue Eliquis Benign prostatic hypertrophy -Continue finasteride. --Prophylaxis VTE: Eliquis GI: None Lines: Left radial, peripheral Diet: Cardiac Plan: In/out: -2.8 L, urine output 4301 Try to wean off phenylephrine while keeping SBP greater than 100 Continue with midodrine 10 mg 3 times daily Random cortisol is on the lower side. Can consider hydrocortisone if he needs persistent vasopressor support. Donepezil has also been associated with bradycardia. Case discussed with vascular surgery Please note the above document was generated using voice recognition software. It may contain grammatical, syntax or spelling errors.Any formal questions or concerns about the content, text or information contained within the body of this dictation should be directly addressed to the provider for clarification. Admission and Anticipated Discharge Date Admission Date: February 02, 2025 Subjective Patient seen and examined at bedside. No acute distress, no adverse events overnight Patient's was in the room at the time of examination He was sitting on the chair Was on 0.1 of phenylephrine. SBP was in the mid 100s. Denied any nausea or vomiting No dizziness, no headache Fair appetite No chest pain, no shortness of breath Review of Systems Review of Systems: All systems reviewed & are unremarkable except as noted in Subjective Physical Exam Physical Exam: Constitutional: No acute distress HEENT: EOMI, PERRLA, right sided incision site is clean, no swelling Respiratory system: Good air entry bilaterally, no wheeze, no rhonchi, mild crackles bilateral lower lobe CVS: S1-S2 positive, no murmurs or gallops Abdomen: Soft, nontender, nondistended, positive bowel sounds x4 Extremities: +2 pulses bilaterally radialis/ dorsalis pedis, no cyanosis, +1 pitting edema bilateral lower extremity Neuro: Awake alert oriented x3, cranial nerves II to XII grossly intact, patient does have some stutter which is chronic Psych: Normal mood and affect G/U: Positive [place] Skin: no rashes, warm and dry Lymphatic: no cervical or axillary lymphadenopathy Results & Data Results & Data Vital Signs (Past 12 Hours) Vital Signs Pulse Resp BP Pulse Ox O2 Del Method 02/05/25 07:58 Room Air 02/05/25 07:15 48 L 16 92 02/05/25 07:14 110/62 02/05/25 07:12 52 L 22 93 02/05/25 07:06 43 L 14 94 02/05/25 07:00 93/57 L 02/05/25 05:51 46 L 15 95 Room Air 02/05/25 05:19 53 L 20 92/52 L 95 Room Air 02/05/25 05:19 48 L 17 92/52 L 92 Room Air 02/05/25 05:03 51 L 17 91 Room Air 02/05/25 04:45 48 L 14 92 Room Air 02/05/25 04:30 52 L 13 91 Room Air 02/05/25 04:18 42 L 16 91 Room Air 02/05/25 04:00 49 L 16 106/60 94 Room Air 02/05/25 04:00 50 L 106/60 02/05/25 03:48 46 L 18 94 Room Air 02/05/25 03:36 53 L 17 92 Room Air 02/05/25 03:00 56 L 20 93 Room Air 02/05/25 03:00 53 L 16 117/61 91 Room Air 02/05/25 02:51 66 16 91 Room Air 02/05/25 02:18 44 L 12 93 Room Air 02/05/25 02:03 49 L 14 96 Room Air 02/05/25 02:00 107/67 02/05/25 01:33 51 L 15 95 Room Air 02/05/25 01:30 45 L 14 93 Room Air 02/05/25 01:03 50 L 18 93 Room Air 02/05/25 01:00 98/67 L 02/05/25 00:54 52 L 18 94 Room Air 02/05/25 00:30 46 L 17 94 Room Air 02/05/25 00:06 44 L 18 93 Room Air 02/05/25 00:00 113/66 02/05/25 00:00 45 L 105/53 L 02/05/25 00:00 46 L 02/04/25 23:54 60 21 95 02/04/25 23:30 52 L 19 95 Room Air 02/04/25 23:03 38 L 17 94 Room Air 02/04/25 23:00 116/66 02/04/25 22:57 36 L 17 90 Room Air 02/04/25 22:39 55 L 20 91 Room Air 02/04/25 22:03 42 L 17 93 Room Air 02/04/25 21:21 49 L 22 94 Room Air 02/04/25 21:00 119/71 02/04/25 20:48 50 L 20 93 Room Air 02/04/25 20:30 53 L 20 95 Room Air 02/04/25 20:09 49 L 16 94 Room Air Coding Level of Care Code 58458 SUB INP/OBS CARE 2/35MIN Diagnoses Hyperlipemia E78.5 Hypertension I10 DVT (deep venous thrombosis) I82.409 Pulmonary embolism I26.99 Asymptomatic carotid artery stenosis I65.29 BPH (benign prostatic hyperplasia) N40.0
--- NOTE | 2025-02-05 08:24 | Surgery Progress Note ---
Date of Service February 05, 2025 Assessment & Plan (1) Asymptomatic carotid artery stenosis: Plan: Continue to wean off pressor. Will be able to d\c once off pressors for a few hours. Will continue midodrine. Admission and Anticipated Discharge Date Admission Date: February 02, 2025 Subjective Patient without complains. Has not gotten oob other than to stand at bedside to urinate. Denies any focal deficits. Patient still on min dose of pressor. Physical Exam Constitutional: WD/WN, vitals as above Respiratory: normal respiratory effort; no respiratory distress Cardiovascular: Rate/Rhythm: regular rate and + irregularly irregular Skin: + incision (dry and clean) Neurologic: CN's II-XI intact bilaterally and moves all extremities Psychiatric: A+Ox3, euthymic affect Results & Data Vital Signs (Past 12 Hours) Vital Signs Pulse Resp BP Pulse Ox O2 Del Method 02/05/25 07:58 Room Air 02/05/25 07:15 48 L 16 92 02/05/25 07:14 110/62 02/05/25 07:12 52 L 22 93 02/05/25 07:06 43 L 14 94 02/05/25 07:00 93/57 L 02/05/25 05:51 46 L 15 95 Room Air 02/05/25 05:19 53 L 20 92/52 L 95 Room Air 02/05/25 05:19 48 L 17 92/52 L 92 Room Air 02/05/25 05:03 51 L 17 91 Room Air 02/05/25 04:45 48 L 14 92 Room Air 02/05/25 04:30 52 L 13 91 Room Air 02/05/25 04:18 42 L 16 91 Room Air 02/05/25 04:00 49 L 16 106/60 94 Room Air 02/05/25 04:00 50 L 106/60 02/05/25 03:48 46 L 18 94 Room Air 02/05/25 03:36 53 L 17 92 Room Air 02/05/25 03:00 56 L 20 93 Room Air 02/05/25 03:00 53 L 16 117/61 91 Room Air 02/05/25 02:51 66 16 91 Room Air 02/05/25 02:18 44 L 12 93 Room Air 02/05/25 02:03 49 L 14 96 Room Air 02/05/25 02:00 107/67 02/05/25 01:33 51 L 15 95 Room Air 02/05/25 01:30 45 L 14 93 Room Air 02/05/25 01:03 50 L 18 93 Room Air 02/05/25 01:00 98/67 L 02/05/25 00:54 52 L 18 94 Room Air 02/05/25 00:30 46 L 17 94 Room Air 02/05/25 00:06 44 L 18 93 Room Air 02/05/25 00:00 113/66 02/05/25 00:00 45 L 105/53 L 02/05/25 00:00 46 L 02/04/25 23:54 60 21 95 02/04/25 23:30 52 L 19 95 Room Air 02/04/25 23:03 38 L 17 94 Room Air 02/04/25 23:00 116/66 02/04/25 22:57 36 L 17 90 Room Air 02/04/25 22:39 55 L 20 91 Room Air 02/04/25 22:03 42 L 17 93 Room Air 02/04/25 21:21 49 L 22 94 Room Air 02/04/25 21:00 119/71 02/04/25 20:48 50 L 20 93 Room Air 02/04/25 20:30 53 L 20 95 Room Air
[2025-02-05] MEDS: ONDANSETRON INJ 2 MG/ML 2 ML VIAL IV PRN (13:21)
[2025-02-06 08:06] VITALS: PULSE 63
[2025-02-06 08:07] VITALS: TEMP 97.9
--- NOTE | 2025-02-06 08:21 | Critical Care Progress Note ---
Date of Service February 06, 2025 Assessment & Plan (1) Hyperlipemia: (2) Hypertension: (3) DVT (deep venous thrombosis): (4) Pulmonary embolism: (5) Asymptomatic carotid artery stenosis: (6) BPH (benign prostatic hyperplasia): Plan Sotero Rincon is a 69-year-old male with past medical history of pulmonary embolism/DVT on Eliquis, BPH, HTN, HLD, and right carotid artery stenosis; who presented to [facility] on 02/02/2025 for a planned right TCAR. Social history: Quit smoking in 2000, approximately 39-oqgl-qohb smoking history Right carotid stenosis s/p right TCAR -Maintain SBP > 100 -Neurovascular checks per protocol -Continue ASA and Plavix Bradycardia likely related to carotid bulb hypersensitivity in setting of TCAR -Patient maintaining HR 48-58 in the post op period. -Atropine ordered for HR < 40 -Patient asymptomatic and hemodynamically stable. Cognitive decline -Continue home Aricept HTN; HLD -Continue losartan. to start tomorrow am. -Continue atorvastatin DVT; pulmonary embolism -Continue Eliquis Benign prostatic hypertrophy -Continue finasteride. --Prophylaxis VTE: Eliquis GI: None Lines: Left radial, peripheral Diet: Cardiac Plan: In/out: -1.7 L, urine output 2576 Has been off of phenylephrine for more than 12 hours Continue with midodrine 10 mg 3 times daily Donepezil has also been associated with bradycardia. Case discussed with vascular surgery Please note the above document was generated using voice recognition software. It may contain grammatical, syntax or spelling errors.Any formal questions or concerns about the content, text or information contained within the body of this dictation should be directly addressed to the provider for clarification. Admission and Anticipated Discharge Date Admission Date: February 02, 2025 Subjective Patient seen and examined at bedside. No acute distress, no adverse events overnight Blood pressure 107/68 at the time of examination saturation 96-97% on room air Denied any chest pain, no abdominal pain No sore throat Fair appetite, no nausea or vomiting No blurry vision Review of Systems Review of Systems: All systems reviewed & are unremarkable except as noted in Subjective Physical Exam Physical Exam: Constitutional: No acute distress HEENT: EOMI, PERRLA, right sided incision site is clean, no swelling, hard to hear Respiratory system: Good air entry bilaterally, no wheeze, no rhonchi, mild crackles bilateral lower lobe CVS: S1-S2 positive, no murmurs or gallops Abdomen: Soft, nontender, nondistended, positive bowel sounds x4 Extremities: +2 pulses bilaterally radialis/ dorsalis pedis, no cyanosis, +1 pitting edema bilateral lower extremity Neuro: Awake alert oriented x3, cranial nerves II to XII grossly intact, patient does have some stutter which is chronic Psych: Normal mood and affect G/U: Positive [place] Skin: no rashes, warm and dry Lymphatic: no cervical or axillary lymphadenopathy Results & Data Results & Data Vital Signs (Past 12 Hours) Vital Signs Temp Pulse Resp BP Pulse Ox O2 Del Method 02/06/25 08:07 36.6 C 02/06/25 08:00 107/68 02/06/25 07:57 63 16 92 02/06/25 07:57 Room Air 02/06/25 07:39 63 18 92 02/06/25 07:03 48 L 13 91 02/06/25 07:00 124/71 02/06/25 06:09 65 17 92 Room Air 02/06/25 06:01 96/58 L 02/06/25 05:51 60 14 92 Room Air 02/06/25 05:09 45 L 16 94 Room Air 02/06/25 04:01 111/67 02/06/25 04:00 47 L 16 92 Room Air 02/06/25 04:00 45 L 107/55 L 02/06/25 03:06 57 L 15 94 Room Air 02/06/25 03:00 93/74 L 02/06/25 02:54 57 L 17 96 Room Air 02/06/25 02:21 59 L 16 96 Room Air 02/06/25 02:00 47 L 14 96/59 L 95 Room Air 02/06/25 01:54 55 L 14 94 Room Air 02/06/25 01:03 55 L 16 92 Room Air 02/06/25 01:00 43 L 16 97/61 L 92 Room Air 02/06/25 00:35 44 L 16 103/54 L 92 Room Air 02/06/25 00:00 45 L 99/50 L 02/06/25 00:00 46 L 02/05/25 23:12 45 L 15 93 Room Air 02/05/25 23:00 51 L 17 119/77 93 Room Air 02/05/25 22:30 17 112/69 95 Room Air 02/05/25 22:12 52 L 18 95 Room Air 02/05/25 22:00 46 L 16 114/70 92 Room Air 02/05/25 21:57 45 L 16 92 Room Air 02/05/25 21:30 104/62 02/05/25 21:30 48 L 15 104/62 94 Room Air 02/05/25 20:30 40 L 17 95 Room Air 02/05/25 20:30 45 L 19 123/58 L 93 Room Air Coding Level of Care Code 00139 SUB INP/OBS CARE 07/03MIN Diagnoses Hyperlipemia E78.5 Hypertension I10 DVT (deep venous thrombosis) I82.409 Pulmonary embolism I26.99 Asymptomatic carotid artery stenosis I65.29 BPH (benign prostatic hyperplasia) N40.0
[2025-02-06 09:27] VITALS: BP 111/63; RESP 20; O2SAT 94
--- NOTE | 2025-02-06 09:29 | Surgery Progress Note ---
Date of Service February 06, 2025 Assessment & Plan (1) Asymptomatic carotid artery stenosis: Plan: Doing well off pressors. Will D\C today on midodrine for a short course. Admission and Anticipated Discharge Date Admission Date: February 02, 2025 Subjective Patient without complaints. Now off pressors and up in chair. No lightheadedness or dizziness. Physical Exam Constitutional: WD/WN, vitals as above Neck: trachea midline Respiratory: normal respiratory effort; no respiratory distress Cardiovascular: Rate/Rhythm: regular rate and regular rhythm Skin: + incision (dry and clean) Neurologic: CN's II-XI intact bilaterally and moves all extremities Psychiatric: A+Ox3, euthymic affect Results & Data Vital Signs (Past 12 Hours) Vital Signs Temp Pulse Resp BP Pulse Ox O2 Del Method 02/06/25 08:07 36.6 C 02/06/25 08:00 107/68 02/06/25 07:57 63 16 92 02/06/25 07:57 Room Air 02/06/25 07:39 63 18 92 02/06/25 07:03 48 L 13 91 02/06/25 07:00 124/71 02/06/25 06:59 55 L 02/06/25 06:09 65 17 92 Room Air 02/06/25 06:01 96/58 L 02/06/25 05:51 60 14 92 Room Air 02/06/25 05:09 45 L 16 94 Room Air 02/06/25 04:01 111/67 02/06/25 04:00 47 L 16 92 Room Air 02/06/25 04:00 45 L 107/55 L 02/06/25 03:06 57 L 15 94 Room Air 02/06/25 03:00 93/74 L 02/06/25 02:54 57 L 17 96 Room Air 02/06/25 02:21 59 L 16 96 Room Air 02/06/25 02:00 47 L 14 96/59 L 95 Room Air 02/06/25 01:54 55 L 14 94 Room Air 02/06/25 01:03 55 L 16 92 Room Air 02/06/25 01:00 43 L 16 97/61 L 92 Room Air 02/06/25 00:35 44 L 16 103/54 L 92 Room Air 02/06/25 00:00 45 L 99/50 L 02/06/25 00:00 46 L 02/05/25 23:12 45 L 15 93 Room Air 02/05/25 23:00 51 L 17 119/77 93 Room Air 02/05/25 22:30 17 112/69 95 Room Air 02/05/25 22:12 52 L 18 95 Room Air 02/05/25 22:00 46 L 16 114/70 92 Room Air 02/05/25 21:57 45 L 16 92 Room Air 02/05/25 21:30 104/62 02/05/25 21:30 48 L 15 104/62 94 Room Air
--- NOTE | 2025-02-06 09:35 | Discharge Summary ---
Date of Service February 06, 2025 Admission HPI Per Admitting Provider Chief Complaint Carotid Artery Stenosis Reason for Consultation Right carotid artery stenosis History of Present Illness I had the pleasure of seeing Amanuel today for evaluation of his carotid disease. As you know he is a 69-year-old gentleman who was admitted to the hospital with extensive DVT of the lower extremity and pulmonary emboli. He is on Eliquis at this point. He did have a period of visual disturbance of both eyes while in the hospital and had a neck CTA which showed an 80% right internal carotid artery stenosis. He is asymptomatic from cerebrovascular insufficiency. He is also asymptomatic for claudication. Review of Systems 10 systems were reviewed. There were no other positive findings other than the HPI. Physical Exam Vitals & Measurements Input and Output - Last 24 hours (Last 8 hours) No I/O Data Found: On exam he is awake alert and oriented x 3. He is in no apparent distress. His blood pressure is 124/70 on the left and 130/80 on the right. His radials and carotids are +2 bilaterally. I cannot appreciate carotid bruits. His abdominal exam is benign. His lungs are clear. His heart has a RRR. No widened aortic pulse appreciated. His femorals and pedal pulses are +2 bilaterally. Neurologic exam is intact to motor and sensory function. Diagnostic Results CT angiogram shows 80% stenosis of the right internal carotid artery. Assessment/Plan 1. Carotid stenosis This point we recommend intervention of the right carotid artery. He went over the risks and benefits of a TCAR versus endarterectomy. He is elected to go ah ead with a TCAR. Risks and benefits of a TCAR were discussed and also included on the consent form. He understood and agreed to have this procedure. We will have to start him on Plavix as well as continue his aspirin and Eliquis. After 30 days postop we could stop the aspirin and keep him on Plavix for a year postprocedure. Will keep you informed as to his progress. Thank you very much for letting us participate in the care of this patient. Sincerely, Vanesa Marrero MD Attestation I have personally spent __50___ minutes performing [id number] and [id number] activities on this date of service. 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 Carotid stenosis DVT (deep venous thrombosis) Hepatic steatosis History of adenomatous polyp of colon Hyperlipidemia Hypertension Moderate cognitive impairment Pulmonary emboli Vascular ectasias Resolved Medicare annual wellness visit, subsequent Medications Home aspirin(Aspir 81), 81 mg, Daily clopidogrel(Plavix 75 mg oral tablet), 75 mg= 1 tab, PO, Daily, 11 refills Allergies No Known Medication Allergies Social History Smoking Status Former Smoker, quit > 1 yr Alcohol Use:Current Frequency:1-2 times per week 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 Type II diabetes mellitus: Father. Health Status Family Member(s) Mother: History is negative Immunizations Vaccine Date Status zoster vaccine, inactivated 07/18/2022 Recorded zoster vaccine, inactivated 05/13/2022 Recorded influenza virus vaccine, inactivated 04/15/2022 Given pneumococcal 20-valent conjugate vaccine 04/15/2022 Given SARS-CoV-2 mRNA-1273 (6y+ bivalent) 03/29/2022 Recorded SARS-CoV-2 (COVID-19) mRNA-1273 vaccine 04/22/2021 Recorded SARS-CoV-2 (COVID-19) mRNA-1273 vaccine 04/21/2021 Recorded Comments : [facility] influenza virus vaccine, inactivated 04/09/2021 Given SARS-CoV-2 (COVID-19) mRNA-1273 vaccine 09/17/2020 Recorded Comments : 2021-04-09: Historical information-source unspecified SARS-CoV-2 (COVID-19) mRNA-1273 vaccine 09/07/2020 Recorded SARS-CoV-2 (COVID-19) mRNA-1273 vaccine 08/19/2020 Recorded Comments : 2021-04-09: Historical information-source unspecified SARS-CoV-2 (COVID-19) mRNA-1273 vaccine 08/07/2020 Recorded Signature Line Electronic Signature on File Chauncey Marrero MD Author Signature Dt/Tm: 01/04/2025 03:50 PM [employer] 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 He is in no apparent distress. His blood pressure is 124/70 on the left and 130/80 on the right. His radials and carotids are +2 bilaterally. I cannot appreciate carotid bruits. His abdominal exam is benign. His lungs are clear. His heart has a RRR. No widened aortic pulse appreciated. His femorals and pedal pulses are +2 bilaterally. Neurologic exam is intact to motor and sensory function. Principal Diagnosis Right internal carotid artery stenosis Discharge Exam Constitutional WD/WN, vitals as above Neck trachea midline Respiratory normal respiratory effort; no respiratory distress Cardiovascular Rate/Rhythm: regular rate, regular rhythm and + irregularly irregular Skin + incision (dry and clean) Neurologic CN's II-XI intact bilaterally and moves all extremities Psychiatric A+Ox3, euthymic affect Discharge Data Allergies Allergy/AdvReac Type Severity Reaction Status Date / Time Penicillins Allergy Unknown UNSURE OF Verified 02/02/25 06:45 REACTION Consultations 02/02/25 12:04 Consult Thread Drawer Routine Procedures Performed Operation Date: 02/02/25 08:00 Actual Procedures p Right Transcarotid Artery Revascularization, Ultrasound Localization of Left Common Femoral Vein(Right) - Chauncey Marrero MD Ordered Studies 02/02/25 07:02 EV angio carotid external RT Routine US EV guide vascular access Routine Hospital Course (1) Asymptomatic carotid artery stenosis: Doing well off pressors. Will D\C today on midodrine for a short course. Total Time Total Time Spent Total Time Spent (In Minutes): x Discharge Plan Discharge Items Patient Disposition: Home - Self-Care Reason For Visit: Right Internal Carotid Artery Stenosis Discharge Diagnosis: Right internal carotid artery stenosis Activity: Per Instructions section Non-emergency contact: Surgeon Call non-emergency contact if: your temperature is above 101.5, your wound has increased redness, your wound has increased drainage and your wound pain has increased Follow-up/Referrals: Sophie Jett [Primary Care Provider] - Diet: Heart Healthy Addtl Attending Provider Instructions: SPECIAL CARE INSTRUCTIONS: Diet: * You may return to previous diet. Medications: * Continue to take Aspirin,plavix and statin as directed. * Continue midodrine till all bottle gone. * Call office or take to ED if patient develops lightheadedness or severe dizziness. Incision Care: * You may shower, but do not rub incision. You may let the warm soapy water run over it. Be sure to dry the incision well after bathing. * Do not shave directly over the incision until it is healed. * DO NOT IMMERSE THE INCISION IN A TUB/POOL/etc. UNTIL HEALED. Restrictions: * Do not drive for at least one week or if you are still taking any narcotic pain medication. * Do not lift anything heavier than a gallon of milk for one week after going home. Possible Complications: * Numbness - It is normal to have some numbness around the incision. Numbness can extend beyond the incision to areas of the neck, ear and face. The numbness is due to bruising of nerves during the surgery and will gradually improve over a period of months. * Hoarseness/Difficulty Speaking and Swallowing - The bruising of nerves in the neck can also cause a hoarse voice, difficulty speaking or swallowing. This may improve over time, HOWEVER, if it continues for more than a few days please contact our office ([phone]). * Excessive Swelling - There will be some swelling immediately after surgery which usually resolves within one week. If you notice that the swelling is getting worse, notify your surgeon ([phone]). * Drainage/Bleeding - If there is any drainage or bleeding, it should be a very small amount (less than a teaspoon per day). If you have excessive bleeding or drainage from the incision, call your surgeon ([phone]) right away. ACTIVATION OF EMERGENCY MEDICAL SYSTEM: Call 911, immediately, if you experience any of the following: Warning Signs and Symptoms of Stroke: * Sudden numbness or weakness of the face, arm or leg, especially on one side of the body * Sudden confusion, trouble speaking or understanding * Sudden trouble seeing in one or both eyes * Sudden trouble walking, dizziness, loss of balance or coordination * Sudden severe headache with no cause Do not delay calling 911 if you experience any warning signs or symptoms of a stroke. Delay in seeking medical attention may affect what treatments can be given to you. Risk Factors for Stroke: You can reduce your chances of stroke by working with your medical provider to adopt a healthy lifestyle. Some specific ways to lower your chance of stroke are: * If you are a smoker, now is the time to stop smoking cigarettes * If you are diabetic, improve the control of your blood sugars * Avoid excessive amounts of alcohol * Control high blood pressure * Lose weight if you are overweight * Be sure to lead an active lifestyle * Eat a healthy diet low in salt, cholesterol and fat You should know about other risk factors for stroke that you are unable to control. These include: * Age 55 years or older * Male gender * Certain racial groups: , or / * Family History of Stroke, Mini stroke or Heart Attack * Sickle Cell Disease You will be receiving a call from the Vascular Surgery Nurse after you are discharged. FOLLOW UP VISIT: It is important for you to keep your follow up appointments with your medical provider. Keep any scheduled doctor appointments. Call [phone] to schedule a follow up appointment if one not already scheduled. Pending Studies at Discharge: No Stand-Alone Forms: My [employer], Smoking Cessation Medications and DC Order Prescriptions: New oxycodone-acetaminophen [Percocet] 5-325 mg Tablet 1 tab PO Q6H PRN (Reason: pain) Qty: 12 0RF midodrine 10 mg Tablet 10 mg PO TID@0800,1200,1700 Qty: 15 0RF Continued donepezil 5 mg tablet 5 mg PO HS Spectravite Men 50 Plus 300-600-300 mcg tablet 1 tab PO QAM losartan [Cozaar] 50 mg tablet 25 mg PO HS finasteride [Proscar] 5 mg tablet 5 mg PO HS Probiotic 10 billion cell Capsule 10,000 mmu cells PO QAM Eliquis 5 mg tablet 5 mg PO BID 90 Days Qty: 180 0RF clopidogrel 75 mg Tablet 75 mg PO QAM aspirin 81 mg Tablet 81 mg PO QAM atorvastatin [Lipitor] 80 mg tablet 80 mg PO HS Discharge Orders: Discharge Order (Routine); Ordered 02/06/25 Ordered By: Chauncey Marrero Admission Data Admit Date/Time: 02/02/25 07:28 Attending Provider: Chauncey Marrero Admit Provider: Chauncey aMrrero Primary Care Provider: Sophie Jett Other Providers: Matthew Hurt; Soham Garcia; Adarsh Campbell; Harish Sanchez; Rogelio Odom; Madeline Seth; Marty Daniels; Shoshana Hendrix
== END 2025-02-06 10:59 | disposition home or self-care (01) | DRG 36 ==
LOC: ASU 06:37 → 1E 07:28
PROC: EV.TCAR (2025-02-02 08:00)